=== PATIENT | female | born 1955 | race Caucasian/White ===

== ENCOUNTER → 2019-05-16 09:27 | Outpatient (CLI) | payer MEDICARE, OTHER, SELFPAY ==
--- NOTE | ~2019-05-16 | XR_ITS ---
EXAMINATION: XR elbow LT 2V EXAM DATE: 05/16/2019 09:37 INDICATION: No known recent injury provided at this time. Pain of the left elbow. Possibly related to weights. TECHNIQUE: Left elbow frontal and lateral projections. There is no prior study for comparison. FINDINGS: The joint spaces are uniform, no bony productive change. There are no acute left elbow fra ctures or dislocations identified. There is no subcutaneous gas. The soft tissue is unremarkable. There are no radiopaque foreign bodies. IMPRESSION: 1. Unremarkable XR elbow LT 2V exam. Reviewed, dictated and finalized at location A. CTION MOLDER
== END ==
PROVIDERS: PCP Family Medicine; Visit Provider Nurse Practitioner Family
DX: M25.522 Pain in left elbow (principal)
CPT/HCPCS: 73070

== ENCOUNTER 2019-09-09 17:11 | Emergency (ER) | payer MEDICARE, OTHER, SELFPAY ==
[2019-09-09 17:14] VITALS: BP 154/117; PULSE 70; RESP 18; TEMP 36.3; O2SAT 100
--- NOTE | 2019-09-09 18:58 | ED.GENADULT ---
HPI - General Adult General Chief complaint: Wound/Laceration Stated complaint: right thumb laceration Time Seen by Provider: 09/09/19 17:46 Source: patient Mode of arrival: ambulatory Limitations: no limitations History of Present Illness HPI narrative: Patient is a 63-year-old female who presents with laceration of the thumb patient was using a hand touch up painter knife when she cut the right thumb patient presents with laceration to the dorsal surface patient notes moderate aching pain worse with touch and activity patient notes that her tetanus is up-to-date patient presents per private vehicle in no distress Related Data Home Medications Medication Instructions Recorded Confirmed estradiol 10 mcg vaginal tablet 10 mcg VAGINAL 2XW 05/16/19 omega-3 acid ethyl esters 1 gram 1 cap PO DAILY 05/16/19 capsule raloxifene 60 mg tablet 60 mg PO DAILY 05/16/19 rosuvastatin 10 mg tablet 10 mg PO DAILY 05/16/19 Allergies Allergy/AdvReac Type Severity Reaction Status Date / Time Sulfa (Sulfonamide Allergy Mild RASH Verified 09/09/19 17:54 Antibiotics) adhesive tape Allergy Unknown RASH Verified 09/09/19 17:54 cefuroxime Allergy Unknown Unknown Verified 09/09/19 17:54 Cephalosporins Allergy Unknown NAUSEA AND Verified 09/09/19 17:54 SEVERE DIARRHEA, C-DIF sulfamethizole Allergy Unknown Unknown Verified 09/09/19 17:54 trimethoprim Allergy Unknown Unknown Verified 09/09/19 17:54 CEFUROXIME AXETIL Allergy Unknown CAUSED Uncoded 08/09/19 14:12 C-DIFF Review of Systems Review of Systems: Narrative: CONSTITUTIONAL: Denies fever, chills, or sweats. SKIN: Positive for laceration MUSCULOSKELETAL: Patient with 2-1/2 cm irregular flap laceration involving the dorsal surface of the right thumb NEUROLOGIC: Denies numbness, or weakness. PMFSH Social History Social History Smoking status: Never smoker Alcohol intake: current Exam Narrative: Exam Narrative: GENERAL: Well-appearing, well-nourished, and in no acute distress. HEAD: Normocephalic, atraumatic. EYES: PERRLA and EOMI. EXTREMITIES: Normal range of motion. No edema. SKIN: Warm, dry, no rash. Patient with 3 cm laceration of the dorsal surface of the right thumb that is superficial NEURO: No focal deficits. Alert and oriented x3. Neurovascularly intact. Capillary refill less than 2 seconds PSYCH: Normal mood and affect. Course Course Emergency Course: Patient in the room in no distress aware of case findings treatment plan and diagnosis Vital Signs Vital signs: Vital Signs Temperature 97.4 F L 09/09/19 17:14 Pulse Rate 70 09/09/19 17:14 Respiratory Rate 18 09/09/19 17:14 Blood Pressure 154/117 H 09/09/19 17:14 Pulse Oximetry 100 09/09/19 17:14 Temperature 97.4 F L 09/09/19 17:14 Pulse Rate 70 09/09/19 17:14 Respiratory Rate 18 09/09/19 17:14 Blood Pressure 154/117 H 09/09/19 17:14 Pulse Oximetry 100 09/09/19 17:14 Procedures Laceration Laceration 1: Date: 09/09/19 Time: 19:01 Site: upper extremity Side (If applicable): right Size (cm): 2.5 Description: linear and flap Depth: simple, single layer Local Anesthetic: lidocaine 1% Pre-repair: wound explored, irrigated and irrigated extensively ====== Skin Level ====== Skin layer closed with: nylon Size (cm): 5-0 Number of sutures: 4 ====== Subcutaneous Layer ====== ====== Muscle Layer ====== ====== Tendon Layer ====== Medical Decision Making MDM Narrative Medical decision making narrative: Patients injury or pain is consistent with musculoskeletal etiology. No signs of neurological or vascular compromise on exam. Compartments and tisues are soft without signs of compartment syndrome. Pain is felt appropriate for further evaluation on an outpatient basis. Vital Signs Vital Signs: Vital Signs Temperatu
[2019-09-09 19:36] VITALS: BP 143/48; PULSE 79; RESP 16; TEMP 36.6; O2SAT 95
== END 2019-09-09 19:37 | disposition home or self-care (01) ==
PROVIDERS: Emergency Provider Emergency Medicine; PCP Family Medicine
DX: S61.011A Laceration without foreign body of right thumb without damage to nail, initial encounter (principal); W26.0XXA Contact with knife, initial encounter
CPT/HCPCS: 12001; 99282

== ENCOUNTER 2020-02-06 08:38 | Outpatient (CLI) | payer MEDICARE, OTHER, SELFPAY ==
--- NOTE | ~2020-02-06 | MMUS_ITS ---
EXAMINATION: MM diagnostic joyce BI w oziel, US breast RT limited HISTORY: Tenderness of the lateral right breast and palpable lump in the upper outer quadrant of the breast TECHNIQUE: Craniocaudal, mediolateral, and mediolateral oblique 3-D tomosynthesis images of the humberto ts were performed and synthetic 2-D images were generated. CAD analysis was submitted and interpreted . High resolution limited right breast ultrasound was performed. COMPARISON: 12/14/2018, 12/10/2017, 11/27/2016 BREAST PARENCHYMAL COMPOSITION: The breasts are heterogeneously dense, which may obscure small masses . FINDINGS: MAMMOGRAPHIC FINDINGS: No mammographic correlate is identified for the patient's right breast pain or reported palpable abno rmality of concern. There is a stable intramammary lymph node in the upper outer quadrant of the righ t breast. There is no evidence of suspicious mass, calcification, or architectural distortion in eit her breast to suggest malignancy. There has been no suspicious interval change. ULTRASOUND: There is no evidence of focal abnormal solid or cystic lesion in the vicinity of the patient's right breast pain or reported palpable abnormality of concern. IMPRESSION: 1. No specific mammographic or sonographic correlate is identified for the patient's right breast maría n or reported palpable abnormality of concern. Further evaluation at this time should be based on cli nical assessment. Continued follow-up physical examination is recommended. 2. Recommend routine screening mammography in one year. BI-RADS Category 2: Benign finding(s). Reviewed, dictated and finalized at location A. IMPRESSION: 1. No specific mammographic or sonographic correlate is identified for the nicci ent's right breast pain or reported palpable abnormality of concern. Further ev aluation at this time should be based on clinical assessment. Continued follow- up physical examination is recommended. 2. Recommend routine screening mammography in one year. BI-RADS Category 2: Benign finding(s).
--- NOTE | ~2020-02-06 | DEXA_ITS ---
Bone Density Report Name: La Charles Age: 64 Sex: Female Ethnicity: White Date of : 1955 Indication: postmenopausal osteoporosis; monitoring treatment; height loss; prior fracture; hysterectomy; Referring Provider: Elysia, Ivett Fonseca Study: Bone densitometry was performed. Exam Date: February 06, 2020 Accession number: [id number] Bone Density: Region BMD T-score Z-score Classification AP Spine (L1-L4) 0.815 -2.1 -0.3 Osteopenia Femoral Neck (Left) 0.613 -2.1 -0.6 Osteopenia Total Hip (Left) 0.748 -1.6 -0.3 Osteopenia Total Hip Bilateral Avg 0.777 -1.4 -0.1 Osteopenia Femoral Neck (Right) 0.641 -1.9 -0.3 Osteopenia Total Hip (Right) 0.804 -1.1 0.2 Osteopenia World Health Organization criteria for BMD impression classify patients as: Normal (T-score at or above -1.0), Osteopenia (T-score between -1.0 and -2.5), or Osteoporosis (T-score at or below -2.5). 10-year Fracture Risk: FRAX not reported because: Treated for osteoporosis Previous Exams: Region Exam Age BMD T-score BMD Change BMD Change Date g/cm2 vs Baseline vs Previous AP Spine(L1-L4) 02/06/2020 64 0.815 -2.1 0.046(5.9%)* 0.046(5.9%)* 03/23/2015 59 0.770 -2.5 Total Hip(Left) 02/06/2020 64 0.748 -1.6 0.004(0.5%) 0.004(0.5%) 03/23/2015 59 0.744 -1.6 Total Hip(Right) 02/06/2020 64 0.804 -1.1 -0.013(-1.6%) -0.013(-1.6%) 03/23/2015 59 0.817 -1.0 *Denotes significance at 95% confidence level, LSC for AP Spine = 0.022 g/cm2, LSC for Total Hip = 0.027 g/cm2 Clinical Information Provided by Patient: Has had a low trauma fracture Is being treated for osteoporosis Has used the following medications: Evista (i.e. raloxifene), Vitamin D Has the following medical conditions: Hysterectomy Patient maximum height was 68 Menopause Age: 45 No regular weight bearing exercise Drinks caffeinated beverages Onset of menses at age 10 Number of children 2 Impression: The patient has low bone mass, based on the Total Spine T-score. The patient has risk factors, including: previous fracture. No significant bone loss was observed. Discussion: PATIENT UNDER TREATMENT WITH NO SIGNIFICANT BMD LOSS SINCE LAST EXAM. In an untreated patient, BMD typically declines with age. A lack of decline or gain is usually a sign that treatment is efficacious and fracture risk is reduced. It is important to ask patients whether they are taking their medications and to encourage continued and appro
== END 2020-02-06 08:39 | disposition home or self-care (01) ==
PROVIDERS: PCP Family Medicine; Visit Provider Nurse Practitioner Obstetrics & Gynecology
DX: Z13.820 Encounter for screening for osteoporosis (principal); M85.852 Other specified disorders of bone density and structure, left thigh; M85.851 Other specified disorders of bone density and structure, right thigh; M85.88 Other specified disorders of bone density and structure, other site; Z78.0 Asymptomatic menopausal state; R92.2 Inconclusive mammogram
CPT/HCPCS: 76642; 77062; 77066; 77080; G0279

== ENCOUNTER 2020-03-26 11:41 | Outpatient (CLI) | payer MEDICARE, OTHER, SELFPAY ==
--- NOTE | ~2020-03-26 | CT_ITS ---
EXAMINATION: CT abdomen pelvis w con DATE: 03/26/2020 12:23 INDICATION: Right lower quadrant pain. Rectal bleeding. TECHNIQUE: Computed tomography (CT) of the abdomen and pelvis was performed with 100 mL Omnipaque-350 intravenous contrast. Automated exposure control and iterative reconstruction technique were employe d. The dose-length product was 418.26 mGy-cm. COMPARISON: 03/01/2018 FINDINGS: Elevation of the left hemidiaphragm. Discoid atelectasis in the lingula along the major fissure. Josesito tional mild dependent atelectasis in the bilateral lower lobes. Heart size is normal. No pericardial or pleural effusion. Liver, gallbladder, pancreas, bilateral adrenal glands and right kidney are norm al. 2.8 cm cyst at the upper pole of the left kidney. No interval change in a likely benign 5 mm low- attenuation splenic lesion most likely a cyst or hemangioma. Bowels including the appendix are normal . Bladder is normal. The uterus is not identified and has likely been surgically resected. Small fat- containing umbilical hernia. No free intraperitoneal gas or fluid. No pathologically enlarged abdomin al or pelvic lymphadenopathy. Mild lower thoracic kyphosis with chronic mild anterior wedging at T8-T 11 with moderate lower thoracic spondylosis. IMPRESSION: 1. Normal appendix. No acute intra-abdominal/pelvic process. Reviewed, dictated and finalized at location B. OMER SERVICE SUPERVISOR
[2020-03-26 12:25] LABS: Estimated Glomerular Filt Rate > 60
[2020-03-26 13:02] LABS: Basophils Percent Auto 0.5 % (0.2-1.2); Eosinophils Absolute Auto 0.1 K/mm3 (0-0.3); Eosinophils Percent Auto 2.4 % (0-4.4); Hematocrit 41.1 % (37.0-47.0); Hemoglobin 13.7 g/dL (12.0-15.0); Immature Granulocyte Absolute 0.01 K/mm3 (0.00-0.031); Immature Granulocyte Percent A 0.2 % (0-0.5); Lymphocytes Percent Auto 36.6 % (18.3-44.2); Mean Corpuscular HGB Conc 33.3 g/dl (32-36); Mean Corpuscular Hemoglobin 29.7 pg (26-34); Mean Platelet Volume 9.3 fl (7.4-10.4); Monocytes Absolute Auto 0.4 K/mm3 (0.1-0.6); Monocytes Percent Auto 7.5 % (2.6-8.5); Neutrophils Absolute Auto 2.9 K/mm3 (1.3-6.7); Neutrophils Percent Auto 52.8 % (45.5-73.1); Platelet Count Result 279 k/mm3 (150-375); Red Blood Count 4.62 M/mm3 (4.2-5.4); Red Cell Distribution Width 12.2 % (11.5-14.5); White Blood Count 5.5 K/mm3 (4.5-10.0)
[2020-03-26 13:14] LABS: Alanine Aminotransferase 20 U/L (4-35); Albumin Level 3.9 g/dL (3.5-5.1); Alkaline Phosphatase 97 U/L (38-126); Anion Gap 4 mmol/L (8-16); Aspartate Amino Transferase 26 U/L (14-36); Bilirubin,Total 0.4 mg/dL (0.2-1.3); Blood Urea Nitrogen 14 mg/dL (7-17); Calcium 9.4 mg/dL (8.4-10.2); Carbon Dioxide 30 mmol/L (22-30); Chloride 102 mmol/L (98-107); Estimated Glomerular Filt Rate > 60; Glucose 86 mg/dL (65-105); Potassium 4.5 mmol/L (3.4-5.0); Sodium 136 mmol/L (137-145)
== END 2020-03-26 11:42 | disposition home or self-care (01) ==
PROVIDERS: PCP Family Medicine; Visit Provider Physician Assistant Medical
DX: K62.5 Hemorrhage of anus and rectum (principal); R10.31 Right lower quadrant pain; R10.32 Left lower quadrant pain; J98.11 Atelectasis; K42.9 Umbilical hernia without obstruction or gangrene; M47.814 Spondylosis without myelopathy or radiculopathy, thoracic region; M40.204 Unspecified kyphosis, thoracic region
CPT/HCPCS: 74177; 80053; 85025; Q9967

== ENCOUNTER 2020-04-01 08:20 | Outpatient (CLI) | payer MEDICARE, OTHER, SELFPAY ==
--- NOTE | ~2020-04-01 | XR_ITS ---
EXAMINATION: SNIFF TEST W/O CXR +FLUORO<1HR DATE: 03/11/11 11:13:00 INDICATION: Disorders of the diaphragm TECHNIQUE: Fluoroscopy was utilized for evaluation of diaphragmatic excursion with rapid inspiration. Fluoroscopy exposure time was 0.7 minutes. 1104 images are obtained. COMPARISON: None. FINDINGS: There is relatively symmetric caudal excursion of both the left and right leaves of the lizz phragm with rapid inspiration. Visualized portions of lung are clear. Heart size is normal. The lung s are free of acute opacities. There is no pleural effusion or pneumothorax. Mild thoracic spondylosi s is noted. IMPRESSION: 1. Normal sniff test. No evidence of phrenic nerve palsy. Reviewed, dictated and finalized at location A. ECTION MGR
== END 2020-04-01 08:21 | disposition home or self-care (01) ==
PROVIDERS: PCP Family Medicine; Visit Provider Physician Assistant Medical
DX: J98.6 Disorders of diaphragm (principal)
CPT/HCPCS: 71046; 76000

== ENCOUNTER 2020-04-14 19:06 | Emergency (ER) | payer MEDICARE, OTHER, SELFPAY ==
[2020-04-14] VITALS (21 sets, daily range): BP systolic 128–164; BP diastolic 62–127; PULSE 78–97; RESP 16–18; TEMP 36.6; O2SAT 92–99
--- NOTE | ~2020-04-14 | CT_ITS ---
EXAMINATION: CT abdomen pelvis w con INDICATION: Abdominal distention, rectal bleeding TECHNIQUE: Computed tomographic images of the abdomen and pelvis were obtained after the administrati on of 100 cc of Omnipaque 350 intravenous contrast. The dose-length product (DLP) was 453.63 mGy-cm. Automated exposure control and iterative reconstruction technique were employed. COMPARISON: 03/26/2020 FINDINGS: Minimal dependent atelectasis is present in the lung bases. The heart size is normal. There is a small sliding hiatal hernia. The liver, spleen, pancreas, gallbladder, and adrenal glands are n ormal. Cysts of the kidneys measure up to 3.4 cm on the left. No pathologically enlarged abdominal or pelvic lymph nodes are identified. There is no free intraperitoneal gas or evidence of bowel obstruc tion. A moderate volume of colonic stool is present. There is a small fat-containing umbilical hernia . Moderate lower thoracic spondylosis is noted. IMPRESSION: 1. No CT correlate for the patient's symptoms. Reviewed, dictated and finalized at location A. ATE EQUITY ASSOCIATE
[2020-04-14 19:42] LABS: Basophils Percent Auto 0.5 % (0.2-1.2); Eosinophils Absolute Auto 0.1 K/mm3 (0-0.3); Eosinophils Percent Auto 2.4 % (0-4.4); Hematocrit 41.2 % (37.0-47.0); Hemoglobin 13.8 g/dL (12.0-15.0); Immature Granulocyte Absolute 0.01 K/mm3 (0.00-0.031); Immature Granulocyte Percent A 0.2 % (0-0.5); Lymphocytes Absolute Auto 2.25 K/mm3 (0.9-3.2); Lymphocytes Percent Auto 38.5 % (18.3-44.2); Mean Corpuscular HGB Conc 33.5 g/dl (32-36); Mean Corpuscular Hemoglobin 29.5 pg (26-34); Mean Platelet Volume 9.3 fl (7.4-10.4); Monocytes Absolute Auto 0.5 K/mm3 (0.1-0.6); Monocytes Percent Auto 8.4 % (2.6-8.5); Neutrophils Absolute Auto 2.9 K/mm3 (1.3-6.7); Platelet Count Result 295 k/mm3 (150-375); Red Blood Count 4.68 M/mm3 (4.2-5.4); Red Cell Distribution Width 12.3 % (11.5-14.5); White Blood Count 5.9 K/mm3 (4.5-10.0)
[2020-04-14 19:52] LABS: INR 0.8; Partial Thromboplastin Time 22.8 SECONDS (22.3-36.8); Prothrombin Time 12.1 Seconds (11.1-14.7)
[2020-04-14 19:56] LABS: Alanine Aminotransferase 28 U/L (4-35); Alkaline Phosphatase 94 U/L (38-126); Aspartate Amino Transferase 38 U/L (14-36); Bilirubin,Total 0.4 mg/dL (0.2-1.3); Calcium 9.6 mg/dL (8.4-10.2); Glucose 104 mg/dL (65-105)
[2020-04-14 20:17] LABS: Sodium 140 mmol/L (137-145)
[2020-04-14 20:18] LABS: Anion Gap 10 mmol/L (8-16); Blood Urea Nitrogen 21 mg/dL (7-17); Carbon Dioxide 25 mmol/L (22-30); Chloride 105 mmol/L (98-107); Estimated CRCL calculation 49 ml/min; Estimated Glomerular Filt Rate > 60; Potassium 4.2 mmol/L (3.4-5.0)
--- NOTE | 2020-04-14 21:00 | ED.GIBLEED ---
HPI - GI Bleed General Chief complaint: GI Bleed Stated complaint: rectal bleeding Time Seen by Provider: 04/14/20 20:26 Source: patient and family Mode of arrival: ambulatory Limitations: no limitations History of Present Illness HPI Narrative: 64 years old white female presents with rectal bleeding. Started March 22, almost every bowel movement mixed with fresh red bright blood. Patient denies any pain. Patient also complaining of distended abdomen which is getting bigger since March 22. Patient denies any fever, chills, nausea, vomiting, diarrhea or constipation.. Patient denies exposure to anybody known to have COVID-19. Related Data Home Medications Medication Instructions Recorded Confirmed estradiol 10 mcg vaginal tablet 10 mcg VAGINAL 2XW 05/16/19 raloxifene 60 mg tablet 60 mg PO DAILY 05/16/19 pantoprazole [Protonix] 20 mg PO QAM 04/14/20 Allergies Allergy/AdvReac Type Severity Reaction Status Date / Time Sulfa (Sulfonamide Allergy Mild RASH Verified 04/14/20 19:25 Antibiotics) adhesive tape Allergy Unknown RASH Verified 04/14/20 19:25 cefuroxime Allergy Unknown Unknown Verified 04/14/20 19:25 Cephalosporins Allergy Unknown NAUSEA AND Verified 04/14/20 19:25 SEVERE DIARRHEA, C-DIF sulfamethizole Allergy Unknown Unknown Verified 04/14/20 19:25 trimethoprim Allergy Unknown Unknown Verified 04/14/20 19:25 CEFUROXIME AXETIL Allergy Unknown CAUSED Uncoded 03/26/20 10:10 C-DIFF Review of Systems Review of Systems: Narrative: CONSTITUTIONAL: Denies fever, chills, or sweats. EYES: Denies visual changes, redness, or discharge. ENT: Denies rhinorrhea, congestion, sore throat, or otalgia. CARDIOVASCULAR: Denies chest pain, palpitations, or edema. RESPIRATORY: Denies cough or dyspnea. GASTROINTESTINAL: Denies abdominal pain, nausea, vomiting, or diarrhea. GENITOURINARY: Denies dysuria or hematuria. SKIN: Denies rash or itching. MUSCULOSKELETAL: Denies back pain, joint pain, or myalgia. NEUROLOGIC: Denies headache, numbness, or weakness. PSYCHIATRIC: Denies anxiety or depression. [facility] Family History Family History Grandparent Cerebrovascular accident Family history of coronary artery disease Diabetes mellitus Mother Family history of malignant neoplasm of breast in first degree relative Family history of malignant neoplasm of ovary Family history of diabetes mellitus in first degree relative Family history of congestive heart failure Family history of heart disease in male family member before age 55 Father Family history of lung cancer Family history of heart disease in male family member before age 55 Sibling Family history of malignant neoplasm of breast in first degree relative, Onset Age: 30 Other Acute myocardial infarction Carcinoma of colon Social History Social History Smoking status: Never smoker Alcohol intake: current Exam Narrative: Exam Narrative: General appearance: Well-developed, well-nourished Skin: Normal color Head: Normocephalic, nontraumatic Eyes: Clear conjunctiva ENT: Oropharynx normal, ears normal, nose normal Neck: Supple, nontender Chest and respiratory: Airway patent, no respiratory distress, no accessory muscle use Heart: Regular rate/rhythm Abdomen: Soft, nontender, large distended abdomen no organomegaly, quiet bowel sounds, rectal exam showed no gross blood, no stool in the rectal pouch, guaiac is negative Vascular: Normal peripheral pulses, normal capillary refill. Musculoskeletal: Normal range of motion, nontender back Neurologic: Alert and oriented ?3, CAT WAGON OPERATOR is normal as tested, no gross motor deficit
[2020-04-14 21:54] LABS: Lactic Acid Reflex 0.9 mmol/L (0.7-2.1)
== END 2020-04-14 22:29 | disposition home or self-care (01) ==
PROVIDERS: Emergency Medicine; Emergency Provider Emergency Medicine; PCP Family Medicine
DX: K62.5 Hemorrhage of anus and rectum (principal)
CPT/HCPCS: 36415; 74177; 80053; 83605; 85025; 85610; 85730; 86850; 86900; 86901; 99284; Q9967

== ENCOUNTER → 2020-11-26 07:27 | Outpatient (CLI) | payer MEDICARE, OTHER, SELFPAY ==
--- NOTE | ~2020-11-26 | US_ITS ---
US right upper quadrant INDICATION: Left upper abdominal pain PROCEDURE: Realtime right upper abdominal ultrasound. COMPARISON: No prior studies for comparison. FINDINGS: The pancreas is normal without focal mass or pancreatic ductal dilation. Liver echotexture is increased, consistent with fatty infiltration. Right renal echotexture is unremarkable. There is normal directional flow in the portal vein. The gallbladder is normal without stones, gallbladder wall thickening or pericholecystic fluid. Comm on bile duct measures 4 mm. No sonographic Vidal's sign. IMPRESSION: 1: Hepatic steatosis. Reviewed, dictated and finalized at location A. IMPRESSION: 1: Hepatic steatosis.
== END ==
PROVIDERS: PCP Family Medicine; Visit Provider Nurse Practitioner Family
DX: R10.13 Epigastric pain (principal); R14.0 Abdominal distension (gaseous); K76.0 Fatty (change of) liver, not elsewhere classified
CPT/HCPCS: 76705

== ENCOUNTER 2021-01-13 09:34 | Outpatient (CLI) | payer MEDICARE, OTHER, SELFPAY ==
--- NOTE | ~2021-01-13 | NM_ITS ---
EXAMINATION: NM hepatobiliary wo pharm DATE: 01/13/2021 12:31 INDICATION: Epigastric abdominal pain. COMPARISON: Ultrasound 11/26/2020 TECHNIQUE: 4 mCi Tc-99m mebrofenin (Choletec) was administered intravenously. Scintigraphic images o f the abdomen were obtained for one hour. Then, the patient drank 8 oz Ensure, and imaging was contin ued for 60 minutes. FINDINGS: There is normal clearance of radiotracer from the blood pool. There is homogeneous tracer u ptake by the liver. Activity progresses to the bowel and gallbladder. Gallbladder ejection fraction (GBEF) was 83%. Note that with this technique, normal GBEF >= 33%. IMPRESSION: 1. Normal hepatobiliary scintigraphy. Reviewed, dictated and finalized at location A.
== END 2021-01-13 09:35 | disposition home or self-care (01) ==
PROVIDERS: PCP Family Medicine; Visit Provider Nurse Practitioner
DX: R10.13 Epigastric pain (principal); R14.0 Abdominal distension (gaseous)
CPT/HCPCS: 78226; A9537

== ENCOUNTER → 2021-02-26 02:06 | Outpatient (CLI) | payer MEDICARE, OTHER, SELFPAY ==
[2021-02-26 18:47] LABS: SARS-CoV-2 RNA PCR Negative
== END ==
PROVIDERS: PCP Family Medicine; Visit Provider Nurse Practitioner Family
DX: R68.89 Other general symptoms and signs (principal); Z20.822 Contact with and (suspected) exposure to COVID-19
CPT/HCPCS: C9803; U0003; U0005

== ENCOUNTER 2021-03-04 10:52 | Emergency (ER) | payer MEDICARE, OTHER, SELFPAY ==
[2021-03-04 11:01] VITALS: BP 145/60; PULSE 75; RESP 16; TEMP 36.9; O2SAT 98
--- NOTE | 2021-03-04 11:55 | ED.URI ---
HPI - URI/Sore Throat General Chief Complaint: Upper Respiratory Infection Stated Complaint: Chest Congestion,Cough,Headache,Sinus Time Seen by Provider: 03/04/21 11:48 Source: patient and RN notes reviewed Mode of arrival: ambulatory Limitations: no limitations History of Present Illness HPI Narrative: Breonna is a 65-year-old female patient who ambulated into the [facility]. Patient states she is had a cough and sinus symptoms for the last 10 days. Patient states the cough is getting worse. Patient had a negative Covid test on 02/26/2021. Patient's had a similar symptoms and was in the hospital for pneumonia. Patient states her was discharged yesterday. Patient does have a history of irritable bowel syndrome and denies any other health issues. Related Data Home Medications Medication Instructions Recorded Confirmed estradiol 10 mcg vaginal tablet 10 mcg VAGINAL 2XW 05/16/19 01/29/21 raloxifene 60 mg tablet 60 mg PO DAILY 05/16/19 01/29/21 Allergies Allergy/AdvReac Type Severity Reaction Status Date / Time Sulfa (Sulfonamide Allergy Mild RASH Verified 01/29/21 15:23 Antibiotics) adhesive tape Allergy Unknown RASH Verified 01/29/21 15:23 cefuroxime Allergy Unknown Unknown Verified 01/29/21 15:23 Cephalosporins Allergy Unknown NAUSEA AND Verified 01/29/21 15:23 SEVERE DIARRHEA, C-DIF sulfamethizole Allergy Unknown Unknown Verified 01/29/21 15:23 trimethoprim Allergy Unknown Unknown Verified 01/29/21 15:23 CEFUROXIME AXETIL Allergy Unknown CAUSED Uncoded 01/29/21 15:23 C-DIFF Review of Systems Review of Systems: CONSTITUTIONAL: Denies body aches, fever, chills, or sweats. EYES: Denies visual changes, redness, or discharge. ENT: + rhinorrhea, +congestion, sore throat, or otalgia. CARDIOVASCULAR: Denies chest pain, palpitations, or edema. RESPIRATORY: + cough denies dyspnea. GASTROINTESTINAL: Denies abdominal pain, nausea, vomiting, or diarrhea. GENITOURINARY: Denies dysuria or hematuria. SKIN: Denies rash, itching, or wounds. MUSCULOSKELETAL: Denies back pain, joint pain, or myalgia. NEUROLOGIC: Denies headache, numbness, tingling, or weakness. PSYCH: Denies depression or anxiety. All systems reviewed & are unremarkable except as noted in HPI and below PMFSH Past Medical History Medical History BMI 26.0-26.9,adult Family History Family History Grandparent Cerebrovascular accident Family history of coronary artery disease Diabetes mellitus Mother Family history of malignant neoplasm of breast in first degree relative Family history of malignant neoplasm of ovary Family history of diabetes mellitus in first degree relative Family history of congestive heart failure Family history of heart disease in male family member before age 55 Father Family history of lung cancer Family history of heart disease in male family member before age 55 Sibling Family history of malignant neoplasm of breast in first degree relative, Onset Age: 30 Other Acute myocardial infarction Carcinoma of colon Social History Social History Smoking status: Never smoker Alcohol intake: current Comments At time of signature, I have reviewed and agree with nursing past medical, surgical, social and family history unless otherwise noted. Please see nursing chart for further information. There is no relevant family history pertinent to the presenting complaint Exam Narrative: GENERAL: Well-appearing, well-nourished, and in no acute distress. HEAD: Normocephalic, atraumatic. EYES: EOMI. No redness or drainage. Conjunctivae normal. ENT: Mucous membranes pink and moist. Nasal membranes pale with clear rhinorrhea. Bilateral tympanic membranes are opaque with mild bulging. No erythema noted. Posterior pharynx is erythem
== END 2021-03-04 12:05 | disposition home or self-care (01) ==
PROVIDERS: Emergency Provider Nurse Practitioner Family; PCP Family Medicine
DX: J40 Bronchitis, not specified as acute or chronic (principal)
CPT/HCPCS: 99213; G0463

== ENCOUNTER 2021-10-07 12:39 | Outpatient (CLI) | payer MEDICARE, OTHER, SELFPAY ==
--- NOTE | ~2021-10-07 | MM_ITS ---
EXAMINATION: MM diagnostic joyce BI w oziel HISTORY: Right breast pain TECHNIQUE: Additional 3-D tomosynthesis images of the breasts were performed and synthetic 2-D images were generated. CAD analysis was submitted and interpreted. COMPARISON: Comparison to multiple prior studies sequentially, with oldest reviewed study dated 10/2014. BREAST PARENCHYMAL COMPOSITION: Breast composed of scattered areas of fibroglandular density FINDINGS: There are no suspicious masses, calcifications or architectural distortion to suggest malig carine. There are stable benign breast calcifications. IMPRESSION: 1. Stable bilateral mammogram without evidence for malignancy. 2. Routine yearly screening mammogram and regular clinical breast examination are recommended. BI-RADS Category 2: Benign finding(s).. Reviewed, dictated and finalized at location A. IMPRESSION: 1. Stable bilateral mammogram without evidence for malignancy. 2. Routine yearly screening mammogram and regular clinical breast examination a re recommended. BI-RADS Category 2: Benign finding(s)..
== END 2021-10-07 12:40 | disposition home or self-care (01) ==
LOC: ANHIMG 12:40
PROVIDERS: PCP Family Medicine; Visit Provider Nurse Practitioner Obstetrics & Gynecology
DX: N64.4 Mastodynia (principal)
CPT/HCPCS: 77062; 77066; G0279

== ENCOUNTER 2022-01-14 14:58 | Inpatient (IN) | payer MEDICARE, OTHER, SELFPAY ==
[2022-01-14] VITALS (7 sets, daily range): BP systolic 137–160; BP diastolic 62–73; PULSE 72–97; RESP 16–18; TEMP 36.2–36.4; O2SAT 95–100; BMI 30.7
--- NOTE | ~2022-01-14 | XR_ITS ---
EXAMINATION: XR chest 2V DATE: 01/14/2022 15:42 INDICATION: Chest pain. TECHNIQUE: Frontal and lateral views of the chest were obtained. COMPARISON: Chest 2 views 01/15/2016 FINDINGS: There is mild atelectasis in left lower lung zone. No pleural effusion or pneumothorax. The heart size is normal. There is mild chronic anterior wedging of multiple vertebral bodies. IMPRESSION: 1. Mild atelectasis in left lower lung zone. Reviewed, dictated and finalized at location A.
--- NOTE | 2022-01-14 15:06 | ECG_ITS ---
Measurements Intervals [place] Rate: 97 P: 65 [place]: 165 QRS: 72 QRSD: 77 T: 68 QT: 360 QTc: 459 Interpretive Statements SINUS RHYTHM [address] ELEV, PROBABLE NORMAL EARLY REPOL PATTERN NO PREVIOUS ECG AVAILABLE FOR COMPARI Electronically Signed On 01-15-2022 16:32:03 CDT by Carlyn Buenrostro M.D.
[2022-01-14 15:24] LABS: Basophils Percent Auto 0.3 % (0.2-1.2); Eosinophils Absolute Auto 0.1 K/mm3 (0-0.3); Eosinophils Percent Auto 1.4 % (0-4.4); Hematocrit 42.1 % (37.0-47.0); Hemoglobin 14.1 g/dL (12.0-15.0); Immature Granulocyte Absolute 0.01 K/mm3 (0.00-0.031); Immature Granulocyte Percent A 0.2 % (0-0.5); Lymphocytes Absolute Auto 1.79 K/mm3 (0.9-3.2); Lymphocytes Percent Auto 28.1 % (18.3-44.2); Mean Corpuscular HGB Conc 33.5 g/dl (32-36); Mean Corpuscular Hemoglobin 29.9 pg (26-34); Mean Corpuscular Volume 89.4 fl (80-100); Mean Platelet Volume 9.4 fl (7.4-10.4); Monocytes Absolute Auto 0.4 K/mm3 (0.1-0.6); Monocytes Percent Auto 6.4 % (2.6-8.5); Neutrophils Absolute Auto 4.1 K/mm3 (1.3-6.7); Neutrophils Percent Auto 63.6 % (45.5-73.1); Platelet Count Result 309 k/mm3 (150-375); Red Blood Count 4.71 M/mm3 (4.2-5.4); Red Cell Distribution Width 12.7 % (11.5-14.5); White Blood Count 6.4 K/mm3 (4.5-10.0)
[2022-01-14 15:33] LABS: Alanine Aminotransferase 25 U/L (6-35); Albumin Level 4.4 g/dL (3.5-5.1); Alkaline Phosphatase 120 U/L (38-126); Anion Gap 9 mmol/L (8-16); Aspartate Amino Transferase 27 U/L (14-36); Bilirubin,Total 0.4 mg/dL (0.2-1.3); Blood Urea Nitrogen 19 mg/dL (7-17); Calcium 9.3 mg/dL (8.4-10.2); Carbon Dioxide 21 mmol/L (22-30); Chloride 107 mmol/L (98-107); Estimated CRCL calculation 63 ml/min; Estimated Glomerular Filt Rate > 60; Glucose 118 mg/dL (65-110); Lipase 156 U/L (23-300); Potassium 3.6 mmol/L (3.4-5.0); Sodium 137 mmol/L (137-145)
[2022-01-14 15:46] LABS: Partial Thromboplastin Time 24.6 SECONDS (22.3-36.8); Prothrombin Time 12.2 Seconds (11.1-14.7)
[2022-01-14 15:48] LABS: Troponin I 0.042 ng/mL (0.000-0.034)
--- NOTE | 2022-01-14 16:06 | ECG_ITS ---
Measurements Intervals [place] Rate: 88 P: 66 [place]: 177 QRS: 72 QRSD: 68 T: 70 QT: 361 QTc: 438 Interpretive Statements SINUS RHYTHM ST ELEV, PROBABLE NORMAL EARLY REPOL PATTERN COMPARED TO ECG 01/14/2022 15:06:42 NO SIGNIFICANT CHANGES Electronically Signed On 01-15-2022 17:05:51 CDT by Carlyn Buenrostro M.D.
[2022-01-14] MEDS: ASPIRIN 81 MG CHEWABLE TABLET 324 MG PO (16:43)
--- NOTE | 2022-01-14 17:15 | ED.CHESTPAIN ---
HPI - Chest Pain General Chief Complaint: Chest Pain Stated Complaint: CHEST PAIN Time Seen by Provider: 01/14/22 16:45 History of Present Illness HPI narrative: Pt presents with chest pain today. Pt states she was working in the yard for a couple of hours this afternoon and developed anterior chest pressure that radiated into her left shoulder and arm and both of her hands got numb. Pt says she sat on the floor and was disoriented. The pain lessemed and they came to the ER. Pt never was pain free and had another period of a few minutes in the [place] where the pain got worse but it is now back down again (05/22). Pt has had a few of these spells over the last 9 months but never this bad. Related Data Home Medications Medication Instructions Recorded Confirmed estradiol 10 mcg vaginal tablet 10 mcg vaginal 2XW 05/16/19 07/15/21 (Vagifem) raloxifene 60 mg tablet (Evista) 60 mg PO DAILY 05/16/19 07/15/21 Allergies Allergy/AdvReac Type Severity Reaction Status Date / Time Sulfa (Sulfonamide Allergy Mild RASH Verified 01/29/21 15:23 Antibiotics) adhesive tape Allergy Unknown RASH Verified 01/29/21 15:23 cefuroxime Allergy Unknown Unknown Verified 01/29/21 15:23 Cephalosporins Allergy Unknown NAUSEA AND Verified 01/29/21 15:23 SEVERE DIARRHEA, C-DIF sulfamethizole Allergy Unknown Unknown Verified 01/29/21 15:23 trimethoprim Allergy Unknown Unknown Verified 01/29/21 15:23 CEFUROXIME AXETIL Allergy Unknown CAUSED Uncoded 01/29/21 15:23 C-DIFF Review of Systems Review of Systems: All systems reviewed & are unremarkable except as noted in HPI and below PMFSH Past Medical History Medical History BMI 26.0-26.9,adult BMI 27.0-27.9,adult Family History Family History Grandparent Cerebrovascular accident Family history of coronary artery disease Diabetes mellitus Mother Family history of malignant neoplasm of breast in first degree relative Family history of malignant neoplasm of ovary Family history of diabetes mellitus in first degree relative Family history of congestive heart failure Family history of heart disease in male family member before age 55 Father Family history of lung cancer Family history of heart disease in male family member before age 55 Sibling Family history of malignant neoplasm of breast in first degree relative, Onset Age: 30 Other Acute myocardial infarction Carcinoma of colon Social History Social History Alcohol intake: current Exam Const: General: healthy appearing Nutritional Appearance: well nourished Orientation/consciousness: patient oriented x3 Limitations: no limitations Neck: Neck: normal visual inspection Chest: Chest palpation & inspection: normal inspection of the chest Resp: Effort & Inspection: normal respiratory effort Auscultation: clear to auscultation bilaterally Cardio: Rate: regular rate Rhythm: regular rhythm GI: Auscultation: normal bowel sounds Skin: General skin exam: normal color Rashes: no rashes Neuro: General: patient oriented x3 Cranial nerves: Yes Nystagmus not present Speech: normal speech Extrem: General: normal to inspection and no clubbing, cyanosis or edema Psych: Mental Status: mental status grossly normal Affect: normal affect Attitude: cooperative Course Course Emergency Course: pt pain free after meds. d/w [facility] will accept pt Vital Signs Vital signs: Vital Signs Temperature 97.2 F L 01/14/22 15:07 Pulse Rate 97 01/14/22 15:07 Respiratory Rate 16 01/14/22 15:07 Blood Pressure 160/62 H 01/14/22 15:07 Pulse Oximetry 99 01/14/22 15:07 Oxygen Delivery Room Air 01/14/22 15:07 Temperature 97.2 F L 01/14/22 15:07 Pulse Rate 72 01/14/22 19:01 Respiratory Rate 18 01/14/22 19:01 Blood Pres
[2022-01-14] MEDS: NITROGLYCERIN OINTMENT 1 INCH DOSE TRANSDERM (17:17)
[2022-01-14] MEDS: MORPHINE SULFATE (*CRX) 4 MG/ML INJ IV PUSH (17:17)
[2022-01-14 19:17] LABS: SARS-CoV-2 RNA PCR Negative
[2022-01-14 19:28] LABS: Troponin I 0.712 ng/mL (0.000-0.034)
--- NOTE | 2022-01-14 20:53 | PM.IMHP ---
H&P: HPI History of Present Illness Date/Time: 01/14/22 20:53 Chief Complaint: chest pain Narrative: This is a 66-year-old female with past medical history significant for hypothyroidism, GERD, hypertension, however patient on no meds has had abnormal readings at home in the last few days. patient presents today to the emergency room after she had an episode of retrosternal chest pain 10/10 in intensity it felt like a pressure like someone sitting on her chest had some nausea with it but no vomiting felt about to faint, there was no loss of consciousness, lasted for 20 minutes or so patient had been doing some yd work or morning and was ready to take a shower when this happened her witnessed the episode and called 911 patient was brought to the emergency room. patient had been in her usual state of health up until this denies any cough, sputum production, fevers, rigors, chills, no leg swelling, no ankle swelling, however has been having abnormal blood pressure readings at home with home machine. preliminary workup was essentially nonrevealing. Patient is being admitted for further evaluation management and treat Review of Systems Review of Systems: retrosternal chest pain, near-syncope. Constitutional: Constitutional: Denies chills, Denies fever(s) and Denies malaise Eyes: Eyes: Denies change in vision ENT: Denies dysphagia, Denies vertigo, Denies dizziness and Denies odynophagia Cardiovascular: Cardiovascular: Reports chest pain, Denies syncope, Denies pedal edema, Reports lightheadedness, Denies dyspnea and Denies orthopnea Respiratory: Respiratory: Denies chest congestion, Denies cough and Denies pain on inspiration Gastrointestinal: Gastrointestinal: Denies abdominal pain, Denies dyspepsia, Denies heartburn, Denies diarrhea, Reports nausea and Denies vomiting Genitourinary: Genitourinary: Denies dysuria Musculoskeletal: Musculoskeletal: Denies back pain, Denies myalgias, Denies joint swelling and Denies muscle weakness Integumentary/Breasts: Skin/Breast: Denies rash Neurologic: Denies vertigo, Denies dizziness, Denies focal weakness and Denies Sensory deficit (Neuro) Psychiatric: Psychiatric: Reports no additional psychiatric complaints and Reports as per HPI Endocrine: Endocrine: Denies cold intolerance, Denies flushing, Denies heat intolerance, Denies polyphagia, Denies polydipsia and Denies palpitations Hematologic/Lymphatic: Hematologic/Lymphatic: Reports no additional hematologic/lymphatic complaints and Reports as per HPI Allergic/Immunologic: Allergic/Immunologic: Reports no additional allergic/immunologic complaints and Reports as per HPI [facility] Past Medical History Medical History BMI 26.0-26.9,adult BMI 27.0-27.9,adult Family History Family History (Updated 01/14/22 @ 23:30 by Rozina Alfaro RN) Grandparent Diabetes mellitus Family history of coronary artery disease Cerebrovascular accident Mother Family history of heart disease in male family member before age 55 Family history of malignant neoplasm of ovary Family history of diabetes mellitus in first degree relative Family history of malignant neoplasm of breast in first degree relative Family history of congestive heart failure Acute myocardial infarction Diabetes mellitus Father Family history of heart disease in male family member before age 55 Family history of lung cancer Acute myocardial infarction Hx of CABG Sibling Family history of malignant neoplasm of breast in first degree relative, Onset Age: 30 Other Carcinoma of colon Social History Social History Smoking status: Never smoker Alcohol intake: never Substance use: never Substance use type: does not use Spiritual care concerns: No Meds Home Medications and Allergies Home Medications Medication Instructions Recorded
--- NOTE | 2022-01-14 22:34 | ADMGEN ---
This patient, La Charles, was admitted to IMU Room 207-01 on 01/14/22 at 2135. Patient/family oriented to hospital policies and general routines including ID bracelet, bed and alarms, visiting hours, pain management, procedures, bathroom and other care routines, personal items, smoking policy, room service/diet, and visiting hours. Information on how to activate the Rapid Response Team has been discussed. Patient/Family are encouraged to report perceived risks to care and to ask questions if they do not understand what they are told or what they should do.
--- NOTE | 2022-01-14 23:19 | ECG_ITS ---
Measurements Intervals [place] Rate: 63 P: 51 NE: 183 QRS: 43 QRSD: 82 T: 46 QT: 414 QTc: 424 Interpretive Statements SINUS RHYTHM NONSPECIFIC ST-T WAVE ABNORMALITIES COMPARED TO ECG 01/14/2022 16:11:50 NO SIGNIFICANT CHANGES Electronically Signed On 01-15-2022 17:15:56 CDT by Carlyn Buenrostro M.D.
[2022-01-15] VITALS (26 sets, daily range): BP systolic 114–160; BP diastolic 44–83; PULSE 53–101; RESP 15–23; TEMP 36.3–36.9; O2SAT 90–97
--- NOTE | 2022-01-15 | ECHO_ITS ---
Patient Info Name: La Charles Age: 66 years : 1955 Gender: Female Ht: 63 in Wt: 173 lbs BSA: 1.90 m2 HR: 51 bpm BP: 142 / 55 mmHg Heart Rhythm: Sinus Rhythm Technical Quality: Fair Exam Date: 01/15/2022 9:29 AM Exam Location: [facility] Pulmonary Patient Status: Outpatient Admit Date: 01/14/2022 Staff Ordering Physician: Priyanka Pizarro MD Robotics Application Engineer: Sydney Barrientos RDCS Attending Provider: Zaki Adorno MD Referring Physician: Moira SHEPARD; Exam Type: CA echo doppler color flow Study Info Indications R07.9 - Chest pain, unspecified Complete two-dimensional, color flow and Doppler transthoracic echocardiogram is performed. Summary 1. Complete two-dimensional, color flow and Doppler transthoracic echocardiogram is performed. 2. Left ventricular systolic function is normal, estimated at 60-65%. 3. The left ventricular diastolic function is grade I diastolic dysfunction. 4. Right ventricular systolic function is normal. 5. Left atrial chamber dimension is mildly enlarged. 6. There is moderate aortic valve regurgitation. Pressure half-time of 447 ms. 7. There is mild mitral valve regurgitation. Left Ventricle Left ventricular chamber dimension is normal. Left ventricular systolic function is normal, estimated at 60-65%. There is no increased left ventricular wall thickness. The left ventricular diastolic function is grade I diastolic dysfunction. Right Ventricle Right ventricular chamber dimension is normal. Right ventricular systolic function is normal. Left Atria Left atrial chamber dimension is mildly enlarged. Right Atria Right atrial chamber dimension is normal. Aortic Valve The aortic valve is trileaflet. There is no aortic valve stenosis. There is moderate aortic valve regurgitation. Pressure half-time of 447 ms. Pulmonic Valve The pulmonic valve is not well visualized. Mitral Valve The mitral valve has normal leaflets. There is no mitral valve stenosis. There is mild mitral valve regurgitation. Tricuspid Valve The tricuspid valve leaflets are not well visualized. There is no significant tricuspid valve stenosis. There is trace tricuspid valve regurgitation. Pericardium/Pleural There is no pericardial effusion. Aorta The aortic root size at the sinus of Valsalva is mildly dilated. Left Ventricular Outflow Tract Name Value Normal LVOT 2D LVOT Diameter 2.0 cm LVOT Doppler LVOT Peak Gradient 3 mmHg LVOT Mean Gradient 2 mmHg LVOT VTI 22 cm LVOT VTI/AV VTI Ratio 0.7 LVOT Stroke Volume 70 ml LVOT CO 4.8 l/min LVOT CI 2.6 l/min/m2 Pulmonic Valve Name Value Normal RVOT Doppler
[2022-01-15] MEDS: ENOXAPARIN 80 MG/0.8 ML SYRINGE 78 MG SUB-Q (00:19)
[2022-01-15] MEDS: DEXTROSE 5%/0.45% SOD CHL 1,000 ML 75 ML IV CONT (01:47)
[2022-01-15] MEDS: ACETAMINOPHEN 500 MG TABLET 1000 MG PO (01:48)
--- NOTE | 2022-01-15 09:11 | PM.CNCAR ---
Assessment and Plan Assessment and plan (1) NSTEMI (non-ST elevated myocardial infarction): Code(s): I21.4 - Non-ST elevation (NSTEMI) myocardial infarction Status: Acute Assessment and Plan: Patient presents with classic unstable angina occurring with activity associated chest pressure radiating to the upper left back, posterior neck associated nausea, emesis, shortness of breath chest pressure/heaviness substernal weakness presenting with subtle nonspecific EKG changes but with elevated troponin. Patient is currently asymptomatic with nitroglycerin paste. Bedside 2D echo did not reveal significant wall motion abnormalities, preserved EF 65% normal RV size and function. Risks, benefits, and alternatives discussed in great detail. All questions answered to her satisfaction. Patient verbalized understanding and agreed to proceed with recommendation for coronary angiography for delineation of her coronary anatomy. Discussed the unusual circumstance given strong family history refraction including elevated blood pressure and hyperlipidemia yet she had a normal coronary angiogram October 2013. Discussed with my interventional partner Dr. Buenrostro who agrees with plan for coronary angiography. Will hold enoxaparin with plans to perform procedure around noon given timing of her last enoxaparin dose. Will give aspirin, load with clopidogrel 600 mg x 1. Atorvastatin 80 mg at bedtime. Check lipid panel. Continue telemetry. 2D echo findings as above. Heart rate stable 50s 60s with rare ventricular couplets and one 4 beat run of nonsustained VT. Add beta-robert therapy post catheterization, additional medical therapy depending upon BP trend. (2) NSVT (nonsustained ventricular tachycardia): Code(s): I47.29 - Other ventricular tachycardia Status: Acute (3) Elevated blood pressure reading without diagnosis of hypertension: Code(s): R03.0 - Elevated blood-pressure reading, without diagnosis of hypertension Status: Acute Assessment and Plan: Stable. Distal medical therapy is appropriate based on coronary angiography and plan of care. (4) Hyperlipidemia: Code(s): E78.5 - Hyperlipidemia, unspecified Status: Acute Assessment and Plan: Atorvastatin increased to 80 mg at bedtime. Lipid panel ordered. Recommendation follow as appropriate goal LDL less than 70. (5) Family history of coronary artery disease: Code(s): Z82.49 - Family history of ischemic heart disease and other diseases of the circulatory system Status: Acute Assessment and Plan: As above. (6) History of colitis: Code(s): Z87.19 - Personal history of other diseases of the digestive system Status: Acute Assessment and Plan: Patient denies active symptoms. 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 No evidence of bleed presently although we discussed this risk with aspirin and or dual antiplatelet therapy. Continue to follow H&H closely and or signs of bleeding. Follow with GI. 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 Patient reports over the past few months she had 2 episodes of chest pressure and not feeling well which woke her from sleep lasting approximately 15-20 minutes then resolved spontaneously. She had continued to exercise 3 times per week as she usually does with
[2022-01-15] MEDS: ASPIRIN 81 MG ENTERIC TABLET PO (09:44)
[2022-01-15] MEDS: ATORVASTATIN 40 MG TABLET 80 MG PO (09:44)
[2022-01-15 10:07] LABS: Cholesterol 284 mg/dL (0-200); HDL Direct 31 mg/dL; Triglycerides 372 mg/dL (<150)
[2022-01-15 10:18] LABS: LDL Cholesterol Direct 174 mg/dL
[2022-01-15] MEDS: CLOPIDOGREL BISULFATE 300 MG TABLET 600 MG PO (11:07)
--- NOTE | 2022-01-15 11:49 | PC.NURSE ---
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
--- NOTE | 2022-01-15 14:26 | PM.IMPN ---
Progress Note: A&P Assessment and Plan (1) Chest pain: Code(s): R07.9 - Chest pain, unspecified Status: Acute (2) NSTEMI (non-ST elevated myocardial infarction): Code(s): I21.4 - Non-ST elevation (NSTEMI) myocardial infarction Status: Acute (3) Uncontrolled hypertension: Code(s): I10 - Essential (primary) hypertension Status: Acute Plan Non ST-elevation DC aspirin Lovenox cardiology consult. Retrosternal chest pain with nonspecific EKG changes. Troponin initially 0.042 6-3.8 this morning. Total cholesterol high at 284 LDL of 174 and triglyceride of 372 atorvastatin 80 mg daily. Chest x-ray mild atelectasis in left lower lung zone Hypertension uncontrolled GERD Nonsustained ventricular tachycardia Family history of coronary artery disease DVT prophylaxis Lovenox Subjective Date/time seen: 01/15/22 14:26 Interval history: HPI:This is a 66-year-old female with past medical history significant for hypothyroidism, GERD, hypertension, however patient on no meds has had abnormal readings at home in the last few days. patient presents today to the emergency room after she had an episode of retrosternal chest pain 10/10 in intensity it felt like a pressure like someone sitting on her chest had some nausea with it but no vomiting felt about to faint, there was no loss of consciousness, lasted for 20 minutes or so patient had been doing some yd work or morning and was ready to take a shower when this happened her witnessed the episode and called 911 patient was brought to the emergency room. patient had been in her usual state of health up until this denies any cough, sputum production, fevers, rigors, chills, no leg swelling, no ankle swelling, however has been having abnormal blood pressure readings at home with home machine. preliminary workup was essentially nonrevealing.? Patient is being admitted for further evaluation management and treat 01/15/2022 Review of Systems Review of Systems: All systems reviewed & are unremarkable except as noted in HPI and below Objective Data Vital Signs Vital Signs: Vital Signs - 24 hr 01/14/22 15:07 01/14/22 16:37 01/14/22 19:01 Temperature 97.2 F L Pulse Rate 97 79 72 Respiratory Rate 16 18 Blood Pressure 160/62 H 137/72 Pulse Oximetry 99 100 Oxygen Delivery Room Air 01/14/22 21:23 01/14/22 21:35 01/14/22 21:35 Temperature 97.6 F Pulse Rate 74 76 Respiratory Rate 18 16 Blood Pressure 143/73 H 140/70 Pulse Oximetry 95 97 Oxygen Delivery Room Air 01/15/22 00:00 01/15/22 00:00 01/14/22 22:00 Temperature 97.6 F Pulse Rate 75 75 Respiratory Rate 16 Blood Pressure 153/65 H Pulse Oximetry 97 Oxygen Delivery Room Air 01/15/22 00:00 01/14/22 21:38 01/15/22 02:00 Temperature Pulse Rate 65 84 69 Respiratory Rate Blood Pressure Pulse Oximetry Oxygen Delivery 01/15/22 04:00 01/15/22 04:00 01/15/22 04:00 Temperature 97.6 F Pulse Rate 61 60 Respiratory Rate 18 Blood Pressure 142/55 H Pulse Oximetry 95 Oxygen Delivery Room Air 01/15/22 06:00 01/15/22 08:00 01/15/22 08:00 Temperature 97.6 F Pulse Rate 53 L 72 60 Respiratory Rate 18 Blood Pressure 130/52 L Pulse Oximetry 95 Oxygen Delivery 01/15/22 10:00 01/15/22 12:00 Temperature 97.4 F L Pulse Rate 71 65 Respiratory Rate 20 Blood Pressure 160/63 H Pulse Oximetry 97 Oxygen Delivery Intake/Output Intake/Output: Intake & Output 01/12/22 01/13/22 01/14/22 01/15/22 23:59 23:59 23:59 23:59 Output Total 400 Balance -400 Meds/Results Medications: Active Medications Generic Name Dose Route Start Last Admin Trade Name Jonathon PRN Reason Stop Dose Admin Acetaminophen 1,000 mg 01/15/22 00:42 01/15/22 01:48 Acetaminophen 500 Mg Tablet PO 1,000 mg Q6H PRN Administration Mild Pain (1-3) or Fever Aspirin 81 mg 01/15/22 09:25 01/15/22 09:44 Aspirin 8
[2022-01-15] MEDS: SODIUM CHLORIDE 0.9% IV 1,000 ML 100 ML IV CONT (15:07)
--- NOTE | 2022-01-15 15:11 | WPDMODSED ---
Moderate Sedation Note-Pt Data Patient Data Diagnosis: Unstable angina / ACS Present Complaint: Unstable angina / ACS Procedure to be performed/Plan: Cardiac cath Allergies Allergy/AdvReac Type Severity Reaction Status Date / Time Sulfa (Sulfonamide Allergy Mild RASH Verified 01/29/21 15:23 Antibiotics) adhesive tape Allergy Unknown RASH Verified 01/29/21 15:23 cefuroxime Allergy Unknown Unknown Verified 01/29/21 15:23 Cephalosporins Allergy Unknown NAUSEA AND Verified 01/29/21 15:23 SEVERE DIARRHEA, C-DIF sulfamethizole Allergy Unknown Unknown Verified 01/29/21 15:23 trimethoprim Allergy Unknown Unknown Verified 01/29/21 15:23 CEFUROXIME AXETIL Allergy Unknown CAUSED Uncoded 01/29/21 15:23 C-DIFF Home Medications Medication Instructions Recorded Confirmed Type estradiol 10 mcg vaginal tablet 10 mcg vaginal 3XW 05/16/19 01/14/22 History (Vagifem) raloxifene 60 mg tablet (Evista) 60 mg PO DAILY 05/16/19 01/14/22 History pantoprazole 40 mg tablet,delayed 40 mg PO BID #180 tabs 03/03/21 01/14/22 Rx release (Protonix) cholecalciferol (vitamin D3) 125 125 mcg PO DAILY 01/14/22 01/14/22 History mcg (5,000 unit) tablet (Vitamin D3) naproxen sodium 220 mg tablet 220 mg PO Q12H PRN Pain 01/14/22 01/14/22 History (Aleve) Current Medications: Active Medications Acetaminophen (Acetaminophen 500 Mg Tablet) 1,000 mg PO Q6H PRN PRN Reason: Mild Pain (1-3) or Fever Last Admin: 01/15/22 01:48 Dose: 1,000 mg Aspirin (Aspirin 81 Mg Enteric Tablet) [facility] [place] Last Admin: 01/15/22 09:44 Dose: 81 mg Atorvastatin Calcium (Atorvastatin 40 Mg Tablet) 80 mg PO DAILY [facility] Last Admin: 01/15/22 09:44 Dose: 80 mg Clopidogrel Bisulfate (Clopidogrel Bisulfate 75 Mg Tablet) [facility] [place] Dextrose/Sodium Chloride (Dextrose 5% Sodium Chloride 0.45%) 1,000 mls @ 75 mls/hr IV CONT .[id number] [facility] Last Admin: 01/15/22 01:47 Dose: 75 mls/hr Sodium Chloride (Normal Saline Iv) 1,000 mls @ 100 mls/hr IV CONT .Q10H ONE Stop: 01/16/22 01:06 Metoprolol Succinate (Metoprolol Succinate Ext Rel 25 Mg Tabcr) 25 mg PO QAM [facility] Perflutren Lipid Microsphere (Perflutren Lipid Microspheres 1.5 Ml Vial Diluted To 10 Ml Total Volume) 0 ml IV PUSH ONCE PRN; Protocol PRN Reason: adequate visualization Stop: 01/16/22 23:17 Sedation/Anesthesia: No previous sedation/anesthesia problems (including family history). [facility] Past Medical History Medical History BMI 26.0-26.9,adult BMI 27.0-27.9,adult History of colitis Hyperlipidemia Family History Family History Grandparent Diabetes mellitus Family history of coronary artery disease Cerebrovascular accident Mother Family history of heart disease in male family member before age 55 Family history of malignant neoplasm of ovary Family history of diabetes mellitus in first degree relative Family history of malignant neoplasm of breast in first degree relative Family history of congestive heart failure Acute myocardial infarction Diabetes mellitus Father Family history of heart disease in male family member before age 55 Family history of lung cancer Acute myocardial infarction Hx of CABG Sibling Family history of malignant neoplasm of breast in first degree relative, Onset Age: 30 Other Carcinoma of colon Social History Social History Smoking status: Never smoker Alcohol intake: never Substance use: never Substance use type: does not use Spiritual care concerns: No Mod Sed Physical Exam Physical Exam Pre Procedural Exam: Normal: Appearance, Lungs, Heart Rate, Heart Rhythm, Neuro Exam, Abdomen, Extremities and Skin Hours since solid foods: 8 Hours since liquid intake: 8 Mallampati Classification: class III Internal Medicine - PN: Obj Da Vital Signs
--- NOTE | 2022-01-15 15:12 | WPDCARDPROC ---
Cardiac Cath Procedure Note Date of procedure:: 01/15/22 Performing physician:: CATHETERIZATION LABORATORY REPORT Procedure Date: 01/15/2022 Wardrobe Attendant: Carlyn Buenrostro M.D., [facility]? Referring Physician: Dr. Blake M.D. Anesthesia: Versed and Fentanyl were ordered and given in my presence at 12:17, procedure ended at 14:49. Supervision of nurse monitored moderate sedation with Versed and Fentanyl was provided for 152 minutes. (Case time was prolonged because there was a STEMI alert in the middle of the case prior to PCI; STEMI alert cancelled, therefore, we proceed with PCI) Total of Versed 2mg and Fentanyl 75mcg were administered by asset availability leader RN. Pre-op Diagnosis: Acute coronary syndrome Post-op Diagnosis: Significant one-vessel coronary artery disease with an 80% stenosis of the proximal LAD s/p successful IVUS-guided PCI of the proximal LAD with JANINA x 1 (4.0mm x 18mm JANINA) Remaining vessels with mild-moderate coronary artery disease Procedure(s): 1. Moderate sedation 2. Ultrasound-guided access of the right radial artery 3. Ultrasound-guided access of the right common femoral artery 4. Coronary angiography 5. IVUS-guided PCI of the proximal LAD with JANINA x 1 (4.0mm x 18mm JANINA) 6. Angioseal closure of the right common femoral artery Access Site: Right radial artery Right common femoral artery Brief History and Clinical Indications: Patient is a 66-year-old female with a history of hyperlipidemia, family history of premature atherosclerosis, hypothyroidism, and GERD who is referred for cardiac cath for NSTEMI / ACS. All risks, benefits and alternatives to left heart catheterization with or without percutaneous coronary intervention was discussed at length with the patient. Risk of complications including but not limited to bleeding, infection, arrhythmia, stroke, worsening kidney function, blood loss, groin hematoma, limb loss, emergency coronary artery bypass grafting, and even were discussed with the patient and all questions were answered. The patient understood and wished to proceed. Time out called, patient name, date of , medical record number, allergies, procedure performed, identify Wardrobe Attendant, patient and staff member concurred with accurate data, procedure carried on. Findings: LEFT HEART CATHETERIZATION FINDINGS: 1. Left main: The left main coronary artery is widely patent without any significant obstructive disease. The left main trifurcates into the LAD, Ramus, and LCX. 2. Left anterior descending: The proximal LAD has an eccentric 80% stenosis. The first diagonal branch has mild diffuse disease. The mid and distal LAD has mild diffuse disease with a focal 60-70% moderate stenosis in the mid-distal LAD. 3. Ramus: The ostium of the ramus has a 40-50% stenosis. 3. Left circumflex: The left circumflex artery and the main marginal branches have mild-moderate diffuse disease without any significant obstructive angiographic disease. 4. Right coronary artery: The RCA is the dominant vessel. The RCA has mild diffuse disease without any significant obstructive angiographic disease. Description of Procedure: Informed consent signed and placed in the chart. Patient transferred to asset availability leader room. Prepped and draped in usual sterile fashion. 2% lidocaine injected subcutaneously in right wrist area. 22-gauge venipuncture catheter used to access the right radial artery with the Seldinger technique. 6-FR slender sheath placed in right radial artery. Nitroglycerine and Cardene was given intraarterial through the sheath. Versacore wire advanced under fluoroscopy 5F Tig 4 diagnostic catheter engaged Right Coronary Artery Multiple orthogonal angiogram obtained and reviewed Unable to engage the left main coronary artery with the Tig and JL4 catheters. Due to difficulty, femoral access was pursued. 2% lidocaine in right groin area. Micropuncture needle used to access right common femoral artery with Seldinger te
--- NOTE | 2022-01-15 15:17 | PC.NURSE ---
This patient, La Charles, was received from IMU 207 on 01/15/22 at 1816. Patient/family oriented to unit policies and routines
[2022-01-15 15:34] LABS: Activated Clotting Time 225 SEC (74-137)
[2022-01-15 15:34] LABS: Activated Clotting Time 156 SEC (74-137)
[2022-01-15 15:34] LABS: Activated Clotting Time 723 SEC (74-137)
[2022-01-15 15:34] LABS: Activated Clotting Time 306 SEC (74-137)
[2022-01-15] MEDS: NITROGLYCERIN/D5W 200 MCG/ML 50 MG/250 ML BTL IV CONT (15:40)
[2022-01-15] MEDS: METOPROLOL SUCCINATE EXT REL 25 MG TABCR PO (15:59)
--- NOTE | 2022-01-15 16:07 | PC.NURSE ---
Cardiopulmonary Rehab Services flyer was given to patient.
[2022-01-15] MEDS: LABETALOL HCL INJ 100 MG/20 ML VIAL 20 MG IV PUSH (17:07)
[2022-01-15] MEDS: ONDANSETRON INJ 4 MG/2 ML VIAL IV PUSH (18:52)
[2022-01-16] VITALS (9 sets, daily range): BP systolic 105–131; BP diastolic 48–62; PULSE 67–82; RESP 12–21; TEMP 36.5–36.9; O2SAT 91–96
[2022-01-16] MEDS: ATORVASTATIN 40 MG TABLET 80 MG PO (07:59)
[2022-01-16] MEDS: ASPIRIN 81 MG ENTERIC TABLET PO (07:59)
[2022-01-16] MEDS: CLOPIDOGREL BISULFATE 75 MG TABLET PO (07:59)
[2022-01-16] MEDS: METOPROLOL SUCCINATE EXT REL 25 MG TABCR PO (07:59)
--- NOTE | 2022-01-16 09:00 | WPDCNINT ---
Assessment and Plan Assessment and plan (1) NSTEMI (non-ST elevated myocardial infarction): Code(s): I21.4 - Non-ST elevation (NSTEMI) myocardial infarction Status: Acute Assessment and Plan: Status post PCI and stent placement in proximal LAD Currently chest pain-free Telemetry monitoring Continue aspirin beta-robert statin and Plavix Echo reviewed (2) Hyperlipidemia: Code(s): E78.5 - Hyperlipidemia, unspecified Status: Acute Assessment and Plan: Continue statin (3) Uncontrolled hypertension: Code(s): I10 - Essential (primary) hypertension Status: Acute Assessment and Plan: Nitroglycerin infusion has been weaned off Blood pressure improved after p.o. metoprolol Plan DVT prophylaxis -I expect patient to ambulate today Nutrition -heart healthy Code Status - Full Code Transfer out ICU today Business Development Manager Consult Note Consult date: 01/16/22 Reason for consult: NSTEMI HPI: La Charles is a 66 year old female with past medical history of colitis and hyperlipidemia who is noncompliant with the medication presented 01/14 with chest pain. Patient states that she was working in the yd started having palpitation which was followed by pressure like pain in the middle of chest 10 severe, radiated to her neck and left shoulder. Pain was associated with nausea. She came to ER by the time she reached the ER her symptoms had resolved. She had mildly elevated troponin the ED. she was diagnosed with non ST segment elevation LA and treated medically. Cardiology was consulted and echocardiogram was done.. Yesterday patient was taken to cardiac catheterization lab where a PCI was done with stent placement to LAD. She had elevated blood pressure during the procedure. Started on nitroglycerin infusion. Post procedure she was admitted to ICU for further evaluation management. Overnight nitroglycerin infusion has been weaned off as a blood pressure improved. This morning she states that she does not have any chest pain at this time and feels good. Patient denies fever, chest pain, shortness of breath, cough, nausea vomiting, abdominal pain,, diarrhea, headache or constipation. Review of system was positive for discomfort at the site of catheterization in right groin. All other systems were reviewed and were negative Review of Systems Review of Systems: All systems reviewed & are unremarkable except as noted in HPI and below (HPI) [facility] Past Medical History Medical History BMI 26.0-26.9,adult BMI 27.0-27.9,adult History of colitis Hyperlipidemia Family History Family History Grandparent Diabetes mellitus Family history of coronary artery disease Cerebrovascular accident Mother Family history of heart disease in male family member before age 55 Family history of malignant neoplasm of ovary Family history of diabetes mellitus in first degree relative Family history of malignant neoplasm of breast in first degree relative Family history of congestive heart failure Acute myocardial infarction Diabetes mellitus Father Family history of heart disease in male family member before age 55 Family history of lung cancer Acute myocardial infarction Hx of CABG Sibling Family history of malignant neoplasm of breast in first degree relative, Onset Age: 30 Other Carcinoma of colon Social History Social History Smoking status: Never smoker Alcohol intake: never Substance use: never Substance use type: does not use Spiritual care concerns: No Meds Home Medications and Allergies Home Medications Medication Instructions Recorded Confirmed Type estradiol 10 mcg vaginal tablet 10 mcg vaginal 3XW 05/16/19 01/14/22 History (Vagifem) raloxifene 60 mg tablet (Evista) 60 mg PO DAILY 05/16/19 01/14/22 His
[2022-01-16 09:25] LABS: Hematocrit 38.8 % (37.0-47.0); Hemoglobin 12.8 g/dL (12.0-15.0); Mean Corpuscular Hemoglobin 29.7 pg (26-34); Mean Platelet Volume 9.4 fl (7.4-10.4); Platelet Count Result 288 k/mm3 (150-375); Red Blood Count 4.31 M/mm3 (4.2-5.4); Red Cell Distribution Width 13.2 % (11.5-14.5); White Blood Count 9.2 K/mm3 (4.5-10.0)
[2022-01-16 09:36] LABS: Alanine Aminotransferase 26 U/L (6-35); Albumin Level 3.8 g/dL (3.5-5.1); Alkaline Phosphatase 103 U/L (38-126); Anion Gap 9 mmol/L (8-16); Aspartate Amino Transferase 52 U/L (14-36); Bilirubin,Total 0.4 mg/dL (0.2-1.3); Blood Urea Nitrogen 14 mg/dL (7-17); Calcium 8.7 mg/dL (8.4-10.2); Carbon Dioxide 21 mmol/L (22-30); Chloride 108 mmol/L (98-107); Estimated CRCL calculation 63 ml/min; Estimated Glomerular Filt Rate > 60; Glucose 113 mg/dL (65-110); Potassium 3.8 mmol/L (3.4-5.0); Sodium 138 mmol/L (137-145)
--- NOTE | 2022-01-16 09:51 | PM.PNCARD ---
Progress Note: A&P Assessment and Plan (1) NSTEMI (non-ST elevated myocardial infarction): Code(s): I21.4 - Non-ST elevation (NSTEMI) myocardial infarction Status: Acute Plan 66-year-old lady with new diagnosis of coronary artery disease underwent PCI of the proximal LAD yesterday with good angiographic outcome. She is stable this morning. Patient reports that the plan is for transfer out of ICU today and consider discharge tomorrow. Told her that sounds fine with me. Once again discussed in significant detail with her the importance of strict adherence to anti-platelet therapy. She is appreciative of the care that she has received. Kota Mills MD [facility] Subjective Date/time seen: Date of service:01/16/22 09:51 Interval history: Follow-up visit in this 66-year-old lady with: Coronary artery disease with high-grade stenosis in the proximal LAD treated yesterday with PCI using drug-eluting stent with a good anatomic result. She has mild to moderate mid disease in the LAD with will be treated medically. Feels well this morning does not have any complaints following angiography and intervention. Long discussion with the patient about the if strict importance of dual anti-platelet therapy for the near future Exam Const: General: comfortable and no acute distress HENMT: Mouth: Yes moist mucous membranes Eyes: Sclera: sclerae normal Pupils: Equal, round and reactive pupils present Neck: Neck: supple and no JVD Other: carotid pulses are intact bilaterally no bruits Resp: Effort & Inspection: normal respiratory effort Auscultation: clear to auscultation bilaterally Cardio: Rate: regular rate Rhythm: regular rhythm Other: PMI of normal location and activity no murmur no gallop GI: GI Palp: Yes Soft to palpation Auscultation: normal bowel sounds Skin: General skin exam: normal color Neuro: Other: alert and oriented x3 Extrem: Other: no edema, good pulses Objective Data Vital Signs Vital Signs: Vital Signs - 24 hr 01/15/22 10:00 01/15/22 12:00 01/15/22 15:59 Temperature 36.3 C L Pulse Rate 71 65 79 Respiratory Rate 20 Blood Pressure 160/63 H Pulse Oximetry 97 Oxygen Delivery 01/15/22 15:40 01/15/22 15:55 01/15/22 16:10 Temperature Pulse Rate 101 H 95 74 Respiratory Rate Blood Pressure 155/73 H 149/77 H 114/71 Pulse Oximetry Oxygen Delivery 01/15/22 17:07 01/15/22 16:00 01/15/22 18:00 Temperature Pulse Rate 74 68 Respiratory Rate Blood Pressure Pulse Oximetry Oxygen Delivery Room Air 01/15/22 18:06 01/15/22 16:00 01/15/22 15:30 Temperature Pulse Rate 70 78 81 Respiratory Rate 18 23 H Blood Pressure 138/69 155/73 H Pulse Oximetry 94 90 Oxygen Delivery 01/15/22 16:00 01/15/22 16:15 01/15/22 16:30 Temperature 36.3 C L Pulse Rate 78 73 77 Respiratory Rate 16 18 15 Blood Pressure 114/71 140/78 149/69 H Pulse Oximetry 92 95 95 Oxygen Delivery 01/15/22 17:00 01/15/22 15:45 01/15/22 18:30 Temperature Pulse Rate 74 79 73 Respiratory Rate 19 15 Blood Pressure 158/83 H 149/77 H 128/67 Pulse Oximetry 95 93 Oxygen Delivery 01/15/22 19:26 01/15/22 19:00 01/15/22 20:00 Temperature 36.9 C Pulse Rate 70 74 78 Respiratory Rate 15 17 Blood Pressure 129/44 L 123/64 128/52 L Pulse Oximetry 93 91 Oxygen Delivery 01/15/22 21:00 01/15/22 20:00 01/15/22 20:00 Temperature Pulse Rate 73 78 Respiratory Rate 16 Blood Pressure 119/51 L Pulse Oximetry 91 91 Oxygen Delivery Room Air 01/15/22 22:00 01/15/22 22:00 01/16/22 00:00 Temperature 36.9 C Pulse Rate 78 78 72 Respiratory Rate 16 16 Blood Pressure 114/48 L 115/55 L Pulse Oximetry 93 93 Oxygen Delivery 01/16/22 00:00 01/16/22 00:00 01/16/22 02:00 Temperature Pulse Rate 72 73 Respiratory Rate Blood Pressure Pulse Oximetry 93 Oxygen Delivery Room Air 01/16/22 02:00
--- NOTE | 2022-01-16 12:55 | PM.DS ---
DS: Admitting Diagnosis Discharge Date 01/16/2022 Admitting Diagnosis Non-STEMI DS: Discharge Diagnosis Discharge Diagnosis (1) Chest pain: Code(s): R07.9 - Chest pain, unspecified Status: Acute (2) NSTEMI (non-ST elevated myocardial infarction): Code(s): I21.4 - Non-ST elevation (NSTEMI) myocardial infarction Status: Acute (3) Uncontrolled hypertension: Code(s): I10 - Essential (primary) hypertension Status: Acute DS: Summary Hospital Course Hospital Course: Non ST-elevation CO started on aspirin Lovenox cardiology consult.? Retrosternal chest pain with nonspecific EKG changes.? Troponin initially 0.042 6-3.8 subsequently suggestive of non ST-elevation CO. Total cholesterol high at 284 LDL of 174 and triglyceride of 372 atorvastatin 80 mg daily.? Of the she has always been hard to control likely suggestive of familial hypercholesterolemia has significant family history of coronary artery disease. Chest x-ray mild atelectasis in left lower lung zone. He underwent cardiac catheterization on 01/15/2022 which showed: Significant one-vessel coronary artery disease with an 80% stenosis of the proximal LAD s/p successful IVUS-guided PCI of the proximal LAD with JANINA x 1 (4.0mm x 18mm JANINA) Remaining vessels with mild-moderate coronary artery disease Needs to be on dual antiplatelet therapy. High-intensity statin started on metoprolol. Post cath she had a sedated hypertension with blood pressure more than 180 mm Hg and was started on nitroglycerin drip. This was tapered off in the ICU and remained stable. Hypertension uncontrolled on metoprolol follow-up with turbine operator and/or PCP for this. GERD Nonsustained ventricular tachycardia Family history of coronary artery disease DVT prophylaxis Lovenox Time Spent with Patient Time attestation: Total time spent providing and/or coordinating discharge services: 45 minutes Exam Narrative: General: Pt is alert awake and in NAD Lungs/Chest: Trachea central Clear BS B/L, No crackles or wheezing. Cardiac: RRR. Normal S1 S2. No murmurs Circulation: Pedal pulses are intact and symmetrical. Abdomen: Normal bowel sounds.. Soft. NT. ND. Extremities: No clubbing, cyanosis or edema. Neurologic: Follows commands. Moves all 4 extremities PERRL Skin: No Rash DS: Data Data Completed and Pending Labs on day of discharge: Labs from last 24 hours 01/16/22 01/16/22 01/16/22 09:05 09:05 09:05 WBC 9.2 RBC 4.31 Hgb 12.8 Hct 38.8 MCV 90.0 MCH 29.7 MCHC 33.0 RDW 13.2 Plt Count 288 MPV 9.4 Activ Coag Time Kaolin Sodium 138 Potassium 3.8 Chloride 108 H Carbon Dioxide 21 L Anion Gap 9 BUN 14 D Creatinine 0.70 Estim Creat Clear Calc 63 Estimated GFR > 60 Glucose 113 H Calcium 8.7 Magnesium 2.0 Total Bilirubin 0.4 AST 52 H ALT 26 Alkaline Phosphatase 103 Troponin I 2.880 H* Total Protein 7.0 Albumin 3.8 TSH (Reflex) 1.360 01/15/22 01/15/22 01/15/22 14:41 14:21 14:01 WBC RBC Hgb Hct MCV MCH MCHC RDW Plt Count MPV Activ Coag Time Kaolin 225 H 723 H 306 H Sodium Potassium Chloride Carbon Dioxide Anion Gap BUN Creatinine Estim Creat Clear Calc Estimated GFR Glucose Calcium Magnesium Total Bilirubin AST ALT Alkaline Phosphatase Troponin I Total Protein Albumin TSH (Reflex) 01/15/22 13:44 WBC RBC Hgb Hct MCV MCH MCHC RDW Plt Count MPV Activ Coag Time Kaolin 156 H Sodium Potassium Chloride Carbon Dioxide Anion Gap BUN Creatinine Estim Creat Clear Calc Estimated GFR Glucose Calcium Magnesium Total Bilirubin AST ALT Alkaline Phosphatase Troponin I Total Protein Albumin TSH (Reflex) Procedures/Treatments: Cardiac Cath Procedure Note Date of procedure:: 01/15/22 Performing phys
== END 2022-01-16 13:41 | disposition home or self-care (01) | DRG 247 ==
LOC: ANHED 18:18 → ANHIMU 20:37 → ANHICU 01-15 15:14
PROVIDERS: Internal Medicine; Internal Medicine Cardiovascular Disease; Admitting Provider Hospitalist; Emergency Provider Emergency Medicine; PCP Family Medicine; Visit Provider Internal Medicine
PROC: 027034Z Dilation of Coronary Artery, One Artery with Drug-eluting Intraluminal Device, Percutaneous Approach (ICD-10-PCS; CPT 93454; principal; 2022-01-15 12:00)
PROC: 027034Z Dilation of Coronary Artery, One Artery with Drug-eluting Intraluminal Device, Percutaneous Approach (ICD-10-PCS; CPT 36140; 2022-01-15 12:00)
PROC: 027034Z Dilation of Coronary Artery, One Artery with Drug-eluting Intraluminal Device, Percutaneous Approach (ICD-10-PCS; 2022-01-15 12:00)
PROC: 027034Z Dilation of Coronary Artery, One Artery with Drug-eluting Intraluminal Device, Percutaneous Approach (ICD-10-PCS; 2022-01-15 12:00)
PROC: 027034Z Dilation of Coronary Artery, One Artery with Drug-eluting Intraluminal Device, Percutaneous Approach (ICD-10-PCS; 2022-01-15 12:00)
DX: I21.4 Non-ST elevation (NSTEMI) myocardial infarction (principal); I47.29 Other ventricular tachycardia; I25.10 Atherosclerotic heart disease of native coronary artery without angina pectoris; E03.9 Hypothyroidism, unspecified; K21.9 Gastro-esophageal reflux disease without esophagitis; I10 Essential (primary) hypertension; Z20.822 Contact with and (suspected) exposure to COVID-19; Z79.899 Other long term (current) drug therapy; Z87.19 Personal history of other diseases of the digestive system; Z91.14 Patient's other noncompliance with medication regimen
CPT/HCPCS: 36140; 36415; 71046; 80053; 80061; 83690; 83735; 84443; 84484; 85025; 85027; 85610; 85730; 92978; 93005; 93306; 93454; 96365; 96372; 96374; 96375; 99285; A9270; C1725; C1753; C1760; C1769; C1874; C1887; C1894; C9600; C9803; G0269; G0378; J1644; J1650; J2250; J2270; J2405; J3010; J7030; J7040; U0003; U0005

== ENCOUNTER 2022-02-06 12:59 | Outpatient (CLI) | payer MEDICARE, OTHER, SELFPAY ==
--- NOTE | ~2022-02-06 | DEXA_ITS ---
Bone Density Report Name: RAEJEV RAMIREZ Age: 66 Sex: Female Ethnicity: White Date of : 1955 Indication: postmenopausal; screening for osteoporosis; height loss; hysterectomy; Referring Provider: MELANIE, HEATHER Fonseca Study: Bone densitometry was performed. Exam Date: February 06, 2022 Accession number: [id number] Bone Density: Region BMD T-score Z-score Classification AP Spine(L1-L4) 0.779 -2.4 -0.5 Osteopenia Femoral Neck (Left) 0.626 -2.0 -0.3 Osteopenia Total Hip (Left) 0.754 -1.5 -0.1 Osteopenia Femoral Neck (Right) 0.638 -1.9 -0.2 Osteopenia Total Hip (Right) 0.789 -1.3 0.1 Osteopenia Total Hip Mean 0.771 -1.4 0.0 Osteopenia World Health Organization criteria for BMD impression classify patients as: Normal (T-score at or above -1.0), Osteopenia (T-score between -1.0 and -2.5), or Osteoporosis (T-score at or below -2.5). 10-year Fracture Risk: FRAX not reported because: Treated for osteoporosis Clinical Information Provided by Patient: Is being treated for osteoporosis Has used the following medications: Evista (i.e. raloxifene), Vitamin D Has the following medical conditions: Hysterectomy Patient maximum height was 67 Menopause Age: 45 Onset of menses at age 10 Number of children 2 Impression: The patient has low bone mass, based on the Total Spine T-score. Discussion: It is important to ask patients whether they are taking their medications and to encourage continued and appropriate compliance with their osteoporosis therapies to reduce fracture risk. It is also important to review their risk factors and encourage appropriate calcium and vitamin D intakes, exercise, fall prevention and other lifestyle measures. Follow-Up: Consider a repeat BMD and Vertebral Fracture Assessment (VFA) exam in 2 years or sooner if medically necessary, to reassess this patient's status. Reported by: MALGORZATA on 02/06/2022 1:22:00 PM. Reviewed, dictated and finalized at location [facility]
== END 2022-02-06 13:00 | disposition home or self-care (01) ==
PROVIDERS: PCP Family Medicine; Visit Provider Nurse Practitioner Obstetrics & Gynecology
DX: Z78.0 Asymptomatic menopausal state (principal); M85.89 Other specified disorders of bone density and structure, multiple sites
CPT/HCPCS: 77080

== ENCOUNTER 2022-02-26 15:00 | Outpatient (RCR) | payer MEDICARE, OTHER, SELFPAY ==
[2022-02-20 12:08] VITALS: PULSE 72
== END 2022-02-26 18:11 | disposition home or self-care (01) ==
LOC: ANHCPREHAB 15:00
PROVIDERS: PCP Family Medicine; Visit Provider Nurse Practitioner Adult Health
DX: Z95.5 Presence of coronary angioplasty implant and graft (principal)
CPT/HCPCS: 93798

== ENCOUNTER → 2022-07-30 07:14 | Outpatient (CLI) | payer MEDICARE, OTHER, SELFPAY ==
--- NOTE | ~2022-07-30 | XR_ITS ---
XR chest 2V DATE: 07/30/2022 07:24 INDICATION: Acute bronchitis. Cough. TECHNIQUE: 2 views COMPARISON: 01/14/2022 PA and lateral chest FINDINGS: Normal heart size. Calcification of the descending thoracic aorta. No hilar or mediastinal enlargement. Prominent left cardiophrenic fat pad. No pulmonary infiltrate or consolidation, pleural effusion or pulmonary vascular congestion or pneumothorax. Osteopenia. Thoracic and lumbar scoliosis. Mild degenerative change of the thoracic spine. IMPRESSION: No active cardiopulmonary disease Reviewed, dictated and finalized at location L.
== END ==
PROVIDERS: PCP Family Medicine; Visit Provider Physician Assistant Medical
DX: J20.9 Acute bronchitis, unspecified (principal)
CPT/HCPCS: 71046

== ENCOUNTER 2022-11-17 08:18 | Outpatient (CLI) | payer MEDICARE, OTHER, SELFPAY ==
--- NOTE | ~2022-11-17 | XR_ITS ---
Lumbosacral Spine: AP and lateral views Clinical History: Pain Findings: The normal lordotic curve is maintained. The vertebral bodies and posterior elements are i ntact. The intervertebral disc spaces are preserved. There is mild facet arthropathy at L4-L5 and L5 -S1. The sacroiliac joints are normally outlined. Impression: Mild facet arthropathy at L4-L5 and L5-S1. Reviewed, dictated and finalized at location . Impression: Mild facet arthropathy at L4-L5 and L5-S1.
--- NOTE | ~2022-11-17 | XR_ITS ---
AP view of the pelvis and AP and lateral views of the right hip Clinical history: Pain Findings: No acute fracture or dislocation is seen. Osseous alignment is anatomic. Bilateral hip and SI joint spaces are preserved. Soft tissues are unremarkable. Impression: No significant abnormality is seen. Reviewed, dictated and finalized at location . Impression: No significant abnormality is seen.
== END 2022-11-17 08:19 | disposition home or self-care (01) ==
PROVIDERS: PCP Family Medicine; Visit Provider Physician Assistant Medical
DX: M25.551 Pain in right hip (principal); M54.31 Sciatica, right side; G89.29 Other chronic pain; M47.817 Spondylosis without myelopathy or radiculopathy, lumbosacral region
CPT/HCPCS: 72100; 73502

== ENCOUNTER 2022-12-18 09:00 | Outpatient (RCR) | payer MEDICARE, OTHER, SELFPAY ==
--- NOTE | 2022-11-20 11:56 | OPREHPOC ---
Outpatient Therapy Plan of Care This is a Multidisciplinary Plan of Care that may contain components documented by all disciplines (PT, OT, and ST.) PT Problem 1 PT Problem #1 Knowledge Deficit PT Goal 1 Goal Pt to be IND with issued HEP Target Visit 8 PT Problem 2 PT Problem #2 Pain PT Goal 1 Goal Pt to report low back/ R hip pain no greater than 3/10 in the last week. Target Visit 8 PT Goal 2 Goal Pt to report 75% improvment in overall symptoms Target Visit 8 PT Problem 3 PT Problem #3 Impaired Sensation PT Goal 1 Goal Pt to decline altered sensation in the last week Target Visit 8 PT Goal 2 Goal Pt to report equal stretch sensation with passive piriformis stretching. Target Visit 8 PT Problem 4 PT Problem #4 Impaired Functional Mobil PT Goal 1 Goal Pt to report being able to stand for 30 mins without needing to sit. Target Visit 8 PT Goal 2 Goal Pt to report being able to walk for 20 mins before needing to sit Target Visit 8
--- NOTE | 2022-11-20 11:56 | PTOPEVAL1 ---
Assessment and note entered by Leonel Toney, PT, DPT Evaluation Information Assessment Status Evaluation Diagnosis R anterior thigh pain Onset 3 months Subjective Information Pt states she feel a couple of months ago on her R hip. She states since then she has felt a clicking in her hip and her anterior thigh down to her knee goes numb when she is standing for any length of time. She states if she tries to work through the pain she will get a burning feeling down the front of her thigh. She states sitting of laying the feeling will go away but starts again as soon as she stands. Reported Pain Level Pain Score 4: Self Report Assessment PT Clinical Summary La presents to therapy today for her initial evaluation with a diagnosis of chronic back pain and R hip pain. Today she demonstrates decreased R hip ROM and strength compared to her L side, limited by pain. She has decreased hip ROM argelia and ambulates with decreased pelvic and trunk rotation with lack of terminal hip extension. She has increased soft tissue density with tenderness to palpation in her argelia lumbar paraspinals and R piriformis. Skilled therapy services are indicated to decreased neural compression, to improve ROM, to manage pain, and to return to PLOF without limitations. Plan of Care Interventions Electrical Stimulation,Gait Training,Hot Pack/Cold Pack,Manual Therapy,Neuro Re-education,Patient/ Caregiver Educati,Therapeutic Activities, Therapeutic Exercise PT Services Indicated Yes Treatment Frequency and 2x/wk for 4 wks Duration These treatments will address the objective and functional deficits as defined above. The patient will be advanced safely and appropriately in order for the patient to progress towards his/her prior level of function. Additional exercises will be introduced and as well as a comprehensive home exercise program upon discharge, if needed, ?to ensure carryover of functional gains achieved in the clinic. This treatment plan has been reviewed and agreement upon by the patient.
--- NOTE | 2022-12-18 09:23 | PTOPDC ---
Assessment and note entered by Leonel Toney, PT, DPT Evaluation Information Assessment Status Discharge Diagnosis R anterior thigh pain Onset 3 months Subjective Information Pt states things are doing much better. She states with her exercises she feels like she knows how to help her pain. She reports her numbness her numbness no longer goes down to her knee but does still have some intermittent numbness in her R hip with excessive movement. Pt reports 95% improvement in overall symptoms. Pt states she was able to spend the whole day at an [employer] without needing to take a break. Reported Pain Level Pain Score 0,0: Self Report Assessment PT Clinical Summary La presents to therapy today for her progress report following 8 visits of therapy to treat her diagnosis of chronic back pain and R hip pain. Today she demonstrates hip and lumbar ROM that is pain free and is WFL. She has met or progressed well towards her therapy goals and will be discharged at this time. Plan of Care PT Services Indicated No
== END 2022-12-18 09:35 | disposition home or self-care (01) ==
LOC: ANHGOSHPT 09:00
PROVIDERS: PCP Family Medicine; Visit Provider Physician Assistant Medical
DX: M54.31 Sciatica, right side (principal); M25.551 Pain in right hip; G89.29 Other chronic pain
CPT/HCPCS: 97014; 97110; 97112; 97140; 97161; 97530; G0283

== ENCOUNTER 2023-01-18 08:01 | Outpatient (CLI) | payer MEDICARE, OTHER, SELFPAY ==
[2023-01-18 08:28] LABS: Kit Draw Collected
== END 2023-01-18 08:02 | disposition home or self-care (01) ==
LOC: ANHGOSHLAB 08:05
PROVIDERS: PCP Family Medicine; Visit Provider Internal Medicine Cardiovascular Disease
DX: E78.2 Mixed hyperlipidemia (principal)
CPT/HCPCS: 36415

== ENCOUNTER 2023-08-12 13:09 | Outpatient (CLI) | payer MEDICARE, OTHER, SELFPAY ==
--- NOTE | ~2023-08-12 | MMUS_ITS ---
EXAMINATION: MM diagnostic joyce BI w oziel, US breast BI complete HISTORY: Right breast pain TECHNIQUE: ML, MLO and CC 3-D tomosynthesis images of both breasts were performed and synthetic 2-D i mages were generated. CAD analysis was submitted and interpreted. High resolution complete bilateral breast ultrasound examination including all 4 quadrants and subareolar area of each breast was perfor med. COMPARISON: 10/07/2021 diagnostic bilateral mammogram BREAST PARENCHYMAL COMPOSITION: There are scattered areas of fibroglandular density. FINDINGS: MAMMOGRAPHIC FINDINGS: Scattered bilateral benign calcifications. Stable right upper outer quadrant c ircumscribed small opacity consistent with benign intramammary lymph node. No suspicious mass or architectural distortion, malignant calcification, skin thickening or retractio n or significant new or developing density is detected. ULTRASOUND: No suspicious mass or shadowing of either breast is detected. Approximately 4 mm cyst at left breast 2:00 8 cm from nipple. IMPRESSION: 1. Benign findings 2. Routine annual mammographic screening is recommended BI-RADS Category 2: Benign finding(s). Reviewed, dictated and finalized at location A. IMPRESSION: 1. Benign findings 2. Routine annual mammographic screening is recommended BI-RADS Category 2: Benign finding(s).
== END 2023-08-12 13:10 | disposition home or self-care (01) ==
PROVIDERS: PCP Family Medicine; Visit Provider Nurse Practitioner Obstetrics & Gynecology
DX: N64.4 Mastodynia (principal)
CPT/HCPCS: 76641; 77062; 77066; G0279

== ENCOUNTER 2024-01-07 10:15 | Outpatient (RCR) | payer MEDICARE, OTHER, SELFPAY ==
--- NOTE | 2023-11-24 14:37 | OPREHPOC ---
Outpatient Therapy Plan of Care This is a Multidisciplinary Plan of Care that may contain components documented by all disciplines (PT, OT, and ST.) PT Problem 1 PT Problem #1 Knowledge Deficit PT Goal 1 Goal *indep with HEP * good safety awareness demonstrated with mobility Target Visit 10 PT Problem 2 PT Problem #2 Impaired Vestibular System PT Goal 1 Goal improve vestibular system to improve mobility skills: good occulomotor control in standing x 20 reps, without symptoms: 1* eye tracking R/L smooth 2* eye tracking up/down 3* gaze stabilization with head motions R/L 4* gaze stabilization with head motion up/down Target Visit 10 PT Problem 3 PT Problem #3 Impaired Functional Mobility PT Goal 1 Goal pt perform without a loss of balance: 1* single leg standing R x 30 seconds 2* single leg standing L x 30 seconds 3* pt walk 50' with head motions R/L 3x each 4* pt walk 50' with head motion up/down 3x each 5* pick at item up off the floor Target Visit 10
--- NOTE | 2023-11-24 14:38 | PTOPEVAL1 ---
Assessment and note entered by Linda Salinas, PT Evaluation Information Assessment Status Evaluation ICD-10 Condition Codes (PT) Repeated falls R29.6,Difficulty Walking R26.2,R26. 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 She reports chronic issues with being off balance and recent falls- with leaning forward and/or turning. Dizziness Handicap index rating of 22% limitation in activity. She had good safety awareness and does the stairs one step at a time and holds onto the railing. She does try to do fitness exercises and walking. With the evaluation: Beattie Oliveira pike testing was negative; symptoms increased with sitting eye tracking and gaze stabilization; balance was affected with standing eyes closed and tandem standing. Skilled PT services are indicated for vestibular rehab-- occulomotor retraining, gait and balance retraining to improve mobility and safety, to decrease risk for future falls. Education for home exercises, vestibular system and safety. Plan of Care Interventions Neuro Re-education,Patient Education, Therapeutic Activities,Therapeutic Exercise PT Services Indicated Yes Treatment Frequency and 1-2x/wk for 10 visits Duration These treatments will address the objective and fun
--- NOTE | 2024-01-14 11:57 | PTOPDC ---
Assessment and note entered by Linda Salinas, PT Discharge Report Assessment Status Discharge - Pt Not Present ICD-10 Condition Codes (PT) Repeated falls R29.6,Difficulty Walking R26.2,R26. 9,Dizziness & Giddiness R42 Other ICD-10 Condition Codes ( falls Z91.81 PT) Onset few years Subjective Information at the last PT session on Jan 06, she reports she is doing well and wanted to be discharged from therapy. Assessment PT Clinical Summary La has received 6 PT sessions. At her Jan 06 appointment, she stated she was doing well and wanted to be done with therapy. The goals were checked by the FENDER REPAIRER and all were achieved. Discharge PT services. Plan of Care PT Services Indicated No
== END 2024-01-14 12:32 | disposition home or self-care (01) ==
LOC: ANHPT 10:15
PROVIDERS: PCP Family Medicine; Visit Provider Physician Assistant Medical
DX: R26.2 Difficulty in walking, not elsewhere classified (principal); R42 Dizziness and giddiness
CPT/HCPCS: 97110; 97112; 97161; 97530

== ENCOUNTER 2024-08-18 00:26 | Day surgery (SDC) | payer MEDICARE, OTHER, SELFPAY ==
[2024-08-17 11:04] VITALS: BMI 29.2
[2024-08-18] VITALS (9 sets, daily range): BP systolic 101–140; BP diastolic 51–76; PULSE 55–75; RESP 13–21; TEMP 36.6; O2SAT 91–98; BMI 28.2
--- OUTSIDE RECORDS SUMMARY | 2024-08-18 00:29 | XMS_ITS | Data Portability ---
Author Organization [facility] [place] Address [address] [place] [address] [place] [address] Care Team Providers Care Embedded Systems Developer Name Role Phone SRIRAM RAWLS Primary Care Provider [phone] Assessment Encounter Date Assessment Date Assessment LastModified by Organization Details LastModified Time 01/04/2020 01/04/2020 Annual gynecological exam performed. Patient will come back in a year unless there are new symptoms. [email or web address] Not available 01/04/2020 09:35:08 01/07/2022 01/07/2022 Annual gynecological exam performed. Patient will come back in a year unless there are new symptoms. Not available 02/24/2021 17:36:05 Plan of Treatment Reminders Order Date Submit Date Provider Last Modified By Organization Details Last Modified Time Details Appointments None recorded. Lab None recorded. Referral None recorded. Procedures None recorded. Surgeries None recorded. Imaging MAMMO, screening, bilateral [address] [facility], [address], [place], [address], 4 11:21:25 US, breast, unilateral, w/ axilla [address] [facility], [address], [address], [place], [address], 4 11:21:25 MAMMO, diagnostic, digital, bilateral 2021 022 [facility], [address], [address], [place], [address], 2 09:27:10 MAMMO, diagnostic, digital, bilateral 2019 020 [facility], [facility] [address], [address], 0 15:23:35 US, breast [address], [facility] [address] [facility], [place], [address], 0 11:22:07 DEXA, axial skeleton + vertebral fracture assessment 2019 020 [facility], [address] [address], [place], [address], 0 13:34:32 Medication Orders Imvexxy Maintenance Pack 10 mcg vaginal insert 2022 023 [facility], [facility] [place], [address], 3 15:33:00 Imvexxy Starter Pack 10 mcg vaginal insert, dose pack 2021 022 [email or web address] 1 [id number], [address] [place], [place], [id number], 3 09:30:11 Vagifem 10 mcg vaginal tablet 2021 022 [place] [address] [facility], [address] [place], [address], 3 15:56:09 raloxifene 60 mg tablet 2021 022 [facility], [address] , [place], [address], 2 10:11:28 mupirocin 2 % topical ointment 2021 022 [email or web address] 1 [facility], [address] , [place], [address], 3 09:30:18 Patient TargetsNo targets recorded. Patient Instructions Encounter Date Encounter Id Patient Instructions Last Modified By Organization Details Last Modified Time 01/04/2020 [id number] [email or web address] Not available 10:16:20 Reason for Referral None Reported. Results Created Date Observation Date Name Description Value Unit Range Abnormal Flag Note LastModifiedBy Organization Detail LastModifiedTime 02/06/2002/06/2020 MAMMO , diagn ostic , digit al, bilat eral No observ ation record ed. [address] [facility], [place], [address], 02/07/2020 20:28:33 02/07/20 20 02/06/2020 DEXA, axial skele ton + verte bral fract ure asses sment No observ ation record ed. [address], [place], [address], 02/14/2020 12:05:18 02/12/20 MAMMO , diagn ostic , digit al, bilat eral No observ ation record ed. [facility] [address] [place] [address] Rte [facility], [place], [address], 02/18/2020 18:34:55 11/27/19 21 11/26/2020 US, abdom en No observ ation record ed. [facility] [address], [place], [address], 12/02/2020 13:07:49 10/29/19 MAMMO , diagn ostic , digit al, bilat eral No observ ation record ed. [facility] [address], [place], [address], 10/31/2021 16:38:24 02/20/20 22 02/06/2022 DEXA, axial skele ton No observ ation record ed. [facility] [address], [place], [address], 12/24/2022 09:30:42 Result Notes Documentation Provider Name and Address Organization Details Recorded Time Mammo, Diagnostic, Digital, Bilateral : Bilateral dx mamm and rt breast us Kuldip [facility] 02/07/2020 13:49:22 Lipid Panel, Blood : cmp and cbc Kuldip Mata [facility] 02/23/2020 16:59:49 Problems Name Problem SNOMED Code Status Onset Date Resolution Date Notes Provider Name and Address Organization Details Recorded Time Screenin g for malignan t neoplasm of rectum Completed 201602/24/2021 Encounter for screening for malignant neoplasm of rectum;Pr actice ID: [id number] Radha Dela Cruz [facility] 17:26:52 Dysuria [id number] Completed 201702/24/2021 Dysuria;P ractice ID: [id number] Radha Dela Cruz [facility] 17:26:41 Evaluati on finding Completed 201702/24/2021 Hematuria , unspecifi ed;Practi ce ID: 0001 Radha Dela Cruz [facility] 17:26:[address] Concept Completed 201702/24/2021 Encounter for general adult medical exam w abnormal findings; Practice ID: 0001 Radha Dela Cruz [facility] 17:26:[address] Concept Completed 201702/24/2021 Encntr for rehab rn exam (general) (routine) w/o abn findings; Practice ID: [id number] Radha Dela Cruz [facility] 17:26:[address] Concept Completed 201802/24/2021 Encntr for general adult medical exam w/o abnormal findings; Practice ID: [id number] Radha Dela Cruz [facility] 17:26:[address] Concept Completed 201602/24/2021 Encounter for general rehab rn exam with abnormal findings; Recorded Elsewhere : No Locati on: [facility] So urce: EHR Chron ic: N Practic e ID: 0001 Bill able Time: 08:30:00 AM Radha Dela Cruz [facility] 17:26:56 Microsco pic hematuri a [id number] Completed 201602/24/2021 Other microscop ic hematuria ;Recorded Elsewhere : No Locati on: [facility] So urce: EHR Chron ic: N Practic e ID: 0001 Bill able Time: 08:30:00 AM Radha Dela Cruz [facility] 17:26:46 Hyperten sive disorder [id number] Completed 201602/24/2021 Hypertens ion;Recor ded Elsewhere : No Locati on: [facility] So urce: EHR Chron ic: N Practic e ID: 0001 Bill able Time: 08:30:00 AM Radha Dela Cruz [facility] 17:26:44 Acute vaginiti s [id number] Completed 201502/24/2021 Vaginitis ;Recorded Elsewhere : No Locati on: [facility] So urce: EHR Chron ic: N Practic e ID: 0001 Bill able Time: 11:00:00 AM Radha Dela Cruz [facility] 17:26:39 Osteopen ia [id number] Completed 201902/24/2021 Radhadusty Dela Cruz [facility] 17:26:49 Problem Notes None recorded. Procedures Surgical History Date Name Laterality Status Provider Name and Address Organization Details Recorded Time 01/11/20 Coronary Artery Bypass completed Wilda Worrell [facility] 12/29/2022 09:55:12 10/29/19 22 Date of Last Mammogram completed [facility] 01/07/2022 11:42:21 02/06/20 20 completed [facility] 02/24/2021 17:32:17 11/25/19 19 Date of Last Pap Smear completed [facility] 02/24/2021 17:31:21 04/12/19 18 procedure on foot completed [facility] 12/29/2022 09:56:20 04/12/19 15 fluoroscopy guided angioplasty of artery with contrast completed [facility] 12/29/2022 09:55:20 04/12/19 07 procedure on wrist completed [facility] 12/29/2022 09:54:47 04/12/19 06 Ovarian Cystectomy completed [facility] 12/29/2022 09:54:41 04/12/19 01 Total Hysterectomy completed [facility] 12/29/2022 09:31:41 Imaging Results Imaging Date Name Status LastModified by Organiz ation Details LastModified Time 02/06/2020 MAMMO, diagnostic, digital, bilateral completed [address], [address], 02/07/2020 20:28:33 02/06/2020 DEXA, axial skeleton + vertebral fracture assessment completed [address], [address], 02/14/2020 12:05:18 02/12/2020 MAMMO, diagnostic, digital, bilateral completed [facility] [address] [place] [address], [address], 02/18/2020 18:34:55 11/26/2020 US, abdomen completed [facility] [address], [place], [address], 12/02/2020 13:07:49 10/28/2021 MAMMO, diagnostic, digital, bilateral completed [facility] [address], [place], [address], 10/31/2021 16:38:24 02/06/2022 DEXA, axial skeleton completed [facility] [address], [place], [address], 12/24/2022 09:30:42 Procedure Notes None recorded. Medical Equipment None Reported. Allergies Allergen ID Allergen Name Allergen Category Reaction Reaction Severity Criticality Documentation Date Start Date Code Code System Note Provider Name and Address Organization Details Recorded Time 2128 cefuroxim e Not available Not available Not available Not available 01/04/2020 2194 RxNorm Aure esqueda [facility] 0 09:36:02 2130 Substance with sulfonami de structure and antibacte rial mechanism of action (substanc e) medicatio n Not available Not available Not available 01/04/2020 54825 8003 SNOMED Aure esqueda, [facility] 0 09:36:07 Medications Name Sig Start Date Stop Date Status Note LastModified by Organization Details LastModified Time amoxicill in 500 mg capsule 02/24 completed Not Available Not Available Not Available latanopro st 0.005 % eye drops INSTILL 1 DROP IN RIGHT EYE TWICE DAILY active Not Available Not Available No t Available atorvasta tin 80 mg tablet TAKE 1 TABLET BY MOUTH EVERY DAY AT BEDTIME active Not Available Not Available No t Available prednison e 10 mg tablet TAKE 3 TABLETS BY MOUTH DAILY FOR 5 DAYS active Not Available Not Available No t Available doxycycli ne hyclate 100 mg capsule TAKE 1 CAPSULE BY MOUTH TWICE DAILY 12/29 completed Not Available Not Available Not Available nabumeton e 750 mg tablet 09/29 completed Not Available Not Available Not Available tizanidin e 2 mg tablet TAKE 1 TABLET BY MOUTH THREE TIMES DAILY NEEDED FOR MUSCLE SPASMS active Not Available Not Available No t Available clindamyc in HCl 300 mg capsule 02/24 completed Not Available Not Available Not Available azithromy vesna 250 mg tablet TK 2 TS PO ON DAY 1, THEN TK 1 T PO D FOR 4 DAYS active Not Available Not Available No t Available clonazepa m 0.5 mg tablet TAKE 1 TABLET BY MOUTH THREE TIMES DAILY NEEDED FOR ANXIETY 12/29 completed Not Available Not Available Not Available promethaz ine 6.25 mg-codein e 10 mg/5 mL syrup TAKE 5 ML BY MOUTH EVERY 6 HOURS NEEDED FOR 7 DAYS 09/29 completed Not Available Not Available Not Available clopidogr el 75 mg tablet TAKE 1 TABLET BY MOUTH EVERY MORNING active Not Available Not Available No t Available ciproflox acin 500 mg tablet 02/24 completed Not Available Not Available Not Available omeprazol e 40 mg capsule,d elayed release TAKE ONE CAPSULE BY MOUTH EVERY DAY 09/29 completed Not Available Not Available Not Available aspirin 81 mg tablet,de layed release TAKE 1 TABLET BY MOUTH EVERY MORNING active Not Available Not Available No t Available prednisol one acetate 1 % eye drops,romero pension SHAKE LIQUID AND INSTILL 1 DROP IN RIGHT EYE FOUR TIMES DAILY 07/26 completed Not Available Not Available Not Available Protonix 40 mg intraveno us solution infuse by intraven ous route every day 09/29 completed Prescrib ed Elsewher e: Yes Loca tion: [facility] odify By: cheryle vela DateTime : 11/23/19 18 01:00:00 PM Not Available Not Available Not Available pantopraz ole 40 mg tablet,de layed release TAKE 1 TABLET BY MOUTH TWICE DAILY active Not Available Not Available No t Available prednison e 50 mg tablet TAKE 1 TABLET BY MOUTH DAILY FOR 5 DAYS 01/06 completed Not Available Not Available Not Available raloxifen e 60 mg tablet TAKE 1 TABLET BY MOUTH EVERY DAY active Not Available Not Available No t Available mupirocin 2 % topical ointment APPLY SMALL AMOUNT TOPICALL Y TO THE AFFECTED AREA THREE TIMES DAILY 12/29 completed Not Available Not Available Not Available metoprolo l succinate ER 25 mg tablet,ex tended release 24 hr TAKE 1 TABLET BY MOUTH EVERY MORNING active Not Available Not Available No t Available albuterol sulfate HFA 90 mcg/actua tion aerosol inhaler INHALE 1 PUFF EVERY 4 HOURS NEEDED FOR SHORTNES S OF BREATH OR WHEEZING 07/26 completed Not Available Not Available Not Available Cipro 250 mg tablet take 1 tablet by oral route every 12 hours 11/24 completed Prescrib ed Elsewher e: No [facility] odify By: jerome Blanton r DateTime : 11/23/19 18 01:00:00 PM Not Available Not Available Not Available Lipitor 10 mg tablet take 1 tablet by oral route every day 10/19 completed Prescrib ed Elsewher e: Yes Loca tion: [facility] odify By: tiffany Blanton r DateTime : 03/01/20 15 08:30:00 AM Not Available Not Available Not Available amoxicill in 875 mg-potass ium clavulana te 125 mg tablet TAKE 1 TABLET BY MOUTH EVERY 12 HOURS FOR 10 DAYS 09/29 completed Not Available Not Available Not Available escitalop heavenly 10 mg tablet TAKE 1 TABLET BY MOUTH DAILY active Not Available Not Available No t Available ezetimibe 10 mg tablet 1 tablet every 24 hours by oral route. active Not Available Not Available No t Available rosuvasta tin 20 mg tablet TAKE 1 TABLET BY MOUTH DAILY 12/29 completed Not Available Not Available Not Available rosuvasta tin 40 mg tablet TAKE 1 TABLET BY MOUTH DAILY active Not Available Not Available No t Available Crestor 5 mg tablet take 1 tablet by oral route every day 09/29 completed Prescrib ed Elsewher e: Yes Loca tion: [facility] odify By: tiffany Blanton r DateTime : 10/20/19 17 08:30:00 AM Not Available Not Available Not Available bupropion HCl XL 150 mg 24 hr tablet, extended release TAKE 1 TABLET BY MOUTH EVERY MORNING active Not Available Not Available No t Available mesalamin e 1,000 mg rectal supposito ry INSERT 1 SUPPOSIT ORY RECTALLY EVERY DAY 09/29 completed Not Available Not Available Not Available Vitamin D active Not Available Not Louisa ilable Not Available mesalamin e 1.2 gram tablet,de layed release TAKE 4 TABLETS BY MOUTH EVERY DAY 01/07 completed Not Available Not Available Not Available Lovaza 1 gram capsule take 2 capsule by oral route 2 times every day 09/29 completed Prescrib olamide Harmon e: Yes Loca tion: Mayra gaxiola [facility] odify By: tiffany chavira DateTime : 03/01/20 08:30:00 AM Not Available Not Available Not Available Lovaza 02/24 completed Not Available Not Available Not Available estradiol 10 mcg vaginal tablet INSERT 1 TABLET VAGINALL Y 2 TIMES A WEEK 12/17 completed Not Available Not Available Not Available Imvexxy Starter Pack 10 mcg vaginal insert, dose pack INSERT 1 VAGINAL INSERT (10 MCG) BY VAGINAL ROUTE ONCE DAILY FOR 2 WEEKS THEN 1 INSERT (10 MCG) TWICE WEEKLY FOR DURATION OF USE 12/29 completed Not Available Not Available Not Available Imvexxy Maintenan ce Pack 10 mcg vaginal insert Insert 1 vaginal insert twice a week by vaginal route as directed for 30 days. active Not Available Not Available No t Available Fluad Quad [id number] (65yr up)(PF) 60 mcg (15 mcg x 4)/0.5mL IM syringe 02/24 completed Not Available Not Available Not Available Vitals Date Recorded Body height Body mass index (BMI) Body weight Provider Name and Address Organization Details Last Updated DateTime 09/29/2021 161.29 cm 28.2 kg/m2 78633.96 g Radha Dela Cruz [facility] 09/29/2021 09:54:37 Date Recorded Systolic blood pressure Diastolic blood pressure Provider Name and Address Organization Details Last Updated DateTime 09/29/2021 124 mm[Hg] 74 mm[Hg] Ivett Naidu, SU[facility]- [address], [place], [address], [facility] 09/29/2021 10:24:03 Date Recorded Body height Body mass index (BMI) Body weight Provider Name and Address Organization Details Last Updated DateTime 01/07/2022 161.29 cm 28.8 kg/m2 07983.74 g Radha Dela Cruz [facility] 01/07/2022 11:41:28 Date Recorded Systolic blood pressure Diastolic blood pressure Provider Name and Address Organization Details Last Updated DateTime 01/07/2022 128 mm[Hg] 74 mm[Hg] Ivett Naidu, [facility] [address], [place], [address], [facility] 01/07/2022 11:58:06 Date Recorded Body height Body mass index (BMI) Body weight Systolic blood pressure Diastolic blood pressure Provider Name and Address Organization Details Last Updated DateTime 12/29/2022 161.29 cm 30 kg/m2 71970.89 g 162 mm[Hg] 63 mm[Hg] Wilda Worrell [facility] 3 09:28:38 Date Recorded Systolic blood pressure Diastolic blood pressure Provider Name and Address Organization Details Last Updated DateTime 12/29/2022 124 mm[Hg] 80 mm[Hg] Ivett Nadiu, [facility] [address], [place], [address], [facility] 12/29/2022 15:35:32 Date Recorded Body height Body mass index (BMI) Body weight Systolic blood pressure Diastolic blood pressure Provider Name and Address Organization Details Last Updated DateTime 01/04/2020 165.1 cm 25.6 kg/m2 49193.22 g 116 mm[Hg] 77 mm[Hg] Aure Todd [facility] 0 09:50:23 Date Recorded Body height Body mass index (BMI) Body weight Systolic blood pressure Diastolic blood pressure Provider Name and Address Organization Details Last Updated DateTime 07/27/2023 161.29 cm 29.5 kg/m2 78292.11 g 146 mm[Hg] 74 mm[Hg] aRdha Edawrds [facility] 4 09:29:10 Social History Question Answer Notes LastModified by Organizat ion Details LastModified Time Tobacco Smoking Status Never Smoker Wilda esqueda, [facility] 12/29/2022 09:22:00 Do You Have An Advance Directive? No Information n ot available 01/07/2022 What Is Your Level Of Alcohol Consumption? Occasional Information not available 02/24/2021 Are You Blind Or Do You Have Difficulty Seeing? No Information n ot available 02/24/2021 What Is Your Level Of Caffeine Consumption? Occasional Information not available 02/24/2021 In The 14 Days Before Symptom Onset, Have You Had Close Contact With A Laboratory-confirm ed COVID-19 While That Case Was Ill? No Information n ot available 01/07/2022 In The 14 Days Before Symptom Onset, Have You Had Close Contact With A Person Who Is Under Investigation For COVID-19 While That Person Was Ill? No Information not available 01/07/2022 Have You Been To An Area Known To Be High Risk For COVID-19? No Information not available 01/07/2022 Are You Deaf Or Do You Have Serious Difficulty Hearing? No Information not available 02/24/2021 What Type Of Diet Are You Following? REGULAR Information n ot available 02/24/2021 What Is The Highest Grade Or Level Of School You Have Completed Or The Highest Degree You Have Received? [id number] Information not available 01/07/2022 What Is Your Occupation? Retired Information not available 01/07/2022 Do You Use Protection During Sex? No Information not available 01/07/2022 Do You Use Your Seat Belt Or Car Seat Routinely? Yes Information not available 02/24/2021 Do You Have Smoke And Carbon Monoxide Detectors In Your Home? Yes Information not available 02/24/2021 How Much Tobacco Do You Smoke? No Information not available 01/07/2022 Do You Feel Stressed (tense, Restless, Nervous, Or Anxious, Or Unable To Sleep At Night)? [id number] Information not available 02/24/2021 Do You Use Any Illicit Or Recreational Drugs? No Information not available 02/24/2021 Do You Use Sunscreen Routinely? Yes Information not available 02/24/2021 Have You Used IV Drugs? Yes Information not available 01/07/2022 Sex: Unknown Functional Status Question Answer Note LastModified by Organizat ion Details LastModified Time Do you have difficulty walking or climbing stairs? No [email or web address] Information not available 12/29/2022 Are you able to walk? YESWOREST Information not available 02/24/2021 Are you able to care for yourself? Yes [email or web address] Information not available 12/29/2022 Do you have difficulty dressing or bathing? No [email or web address] Information not available 12/29/2022 What is your exercise level? Moderate Information not available 02/24/2021 Mental Status None recorded. Family History Relationship Description Onset Age of this Age Resolved Age Notes LastModified by Organization Details LastModified Time Mother Carcinoma in situ of breast [email or web address] Not available 2023 09:20:39 Mother Suspected cervical cancer [email or web address] Not available 2023 09:20:39 Mother Diabetes mellitus [email or web address] Not available 12/29 09:29:14 Mother Disorder of cardiovascul ar system [email or web address] Not available 2023 09:20:39 Mother Recurrent ovarian cancer [email or web address] Not available 2023 09:20:39 Paternal Grandmother Carcinoma in situ of breast [email or web address] Not available 2023 09:20:39 Maternal Grandmother Diabetes mellitus [email or web address] Not available 12/29 09:29:14 Maternal Aunt Diabetes mellitus [email or web address] Not available 12/29 09:29:14 Father Disorder of cardiovascul ar system [email or web address] Not available 2023 09:20:39 Father Hypercholest erolemia [email or web address] Not available 12/29 09:29:14 Father Carcinoma in situ of lung [email or web address] Not available 09:20:39 Father Hypertensive disorder Not available 12/29 09:29:14 Maternal Grandfather Disorder of cardiovascul ar system Not available 2023 09:20:39 Paternal Grandfather Disorder of cardiovascul ar system [email or web address] Not available 2023 09:20:39 Paternal Uncle Family history of cancer of colon [email or web address] Not available 2023 09:20:39 Medical History Condition Response Allergies (Food, seasonal, environmental ) Y Other N Drug/Latex Allergies/Reactions Y Breast Cancer N Blood Transfusion N Lung Disease N Dermatologic Disorders N Defects or Inherited Disease N Breast Problem N Gestational Diabetes N Hematologic disorders N Anesthesia Complications N History of STI N Deep Vein Thrombosis N Polycystic ovary syndrome N Anxiety Disorder Y Autoimmune disease N Arthritis Y Polyps N Infertility N History of abnormal pap N Acid Reflux (GERD) Y Cancer N Varicosities N Stroke N Neurologic/Epilepsy N Endometriosis N High Cholesterol Y Headaches N Fibromyalgia N Kidney Disease N Heart Problems Y Thyroid Problems N Kidney or Bladder Problems Y GI Problems Y Eating Disorder N Anemia N Art (IVF or FET) N Psychiatric Illness N Ovarian Cancer N Diabetes N Pulmonary (TB, Asthma) N Hepatitis/Liver Disease N Eczema N Urinary Tract Infection N Asthma Y Trauma/Violence N Depression/ depression Y Heart Disease Y Pre-Eclampsia N Hypertension Y Osteoporosis Y Thrombophilias N Gynecological History Statement/Question Response Abnormal Pap N Date of Last Mammogram 10/28/2021 Date of LMP 04/12/1996 On BCP's at Conception? Y N Was last menstrual period normal Y STIs/STDs N HPV Vaccine N Duration of Flow (days) 5 02/06/2020 Current Control Method Hysterectom y Age at First Child 22 Sexually Active? Y Menses Monthly N Date of DEXA bone scan 02/06/2020 Age of first menstrual cycle 10 Date of Last Pap Smear 11/24/2018 Sexual Problems? Y LMP Approximate N Obstetrics History GPAL:G 2 P 2 0 0 2 Type Value Full Term 2 Living 2 Total 2 Past Encounters Encounter ID Performer Location Encounter Start Date Encounter Closed Date Diagnosis/Indication Diagnosis SNOMED-CT Code Diagnosis ICD10 Code Diagnosis Note [id number] [facility] [address] [address] 01/04/2020 09:27:33 01/04/2020 10:37:26 Screening for osteoporosis 599720213 Z13.820 Q78.2 Gynecologi c examination [id number] Z01.419 Take Calcium with Vitamin D 12-1500mg daily. Do monthly self breast exams. It is advised to get annual flu shot in the fall and she could obtain at [facility] or [facility]. If you haven't received the Tdap vaccine in the last 10 years you should obtain one as well. Have mammogram yearly, bone density every 2-3 years and colonoscop y every 5-10 years depending on findings and history. Engage in daily exercise of low impact aerobic exercise 45-60 minutes 4-5 times weekly. Avoid tobacco and illicit drugs as well as using moderation with alcohol intake less than 1-2 8 oz beverages daily. This lifestyle behavior pattern will lead to less health conditions and longer life span. If BMI greater than 25 weight watchers or dietary consult advised. Questions have been answered. Patient appears to understand instructio ns, but if you have any further questions call or respond to this email Atrophic vaginitis [id number] N95.2 She is currently on Vaginal estrogen 3x per week since her hysterecto my. Voices it does work but has noted a bit more dryness this year. Has been using Replens OTC but it is not helping. We discussed VCG s & use of vaginal vegetable moisturize r 2x/day along with estrogen therapy. RTO x 3mos Reduced libido 1938010 R 68.82 At upcoming f/u we will further discuss low libido & possible trial of Testostero ne cream to help low libido. Tenderness of breast [id number] 32075 N64.4 [id number] Ivett Naidu [facility] [address] [address] 01/07/2022 10:53:40 01/07/2022 14:12:18 Gynecologic examination [id number] Z01.419 Take Calcium with Vitamin D 12-1500mg daily. Do monthly self breast exams. It is advised to get annual flu shot in the fall and she could obtain at [facility] or [facility]. If you haven't received the Tdap vaccine in the last 10 years you should obtain one as well. Have mammogram yearly, bone density every 2-3 years and colonoscop y every 5-10 years depending on findings and history. Engage in daily exercise of low impact aerobic exercise 45-60 minutes 4-5 times weekly. Avoid tobacco and illicit drugs as well as using moderation with alcohol intake less than 1-2 8 oz beverages daily. This lifestyle behavior pattern will lead to less health conditions and longer life span. If BMI greater than 25 weight watchers or dietary consult advised. Questions have been answered. Patient appears to understand instructio ns, but if you have any further questions call or respond to this email Pap/hpv (Hysterect mouna for non-cancer indication s) USPSTF recommends against screening for cervical cancer in women older than 65yo, those who've had a hysterecto my for non-cancer indication s, & who have had adequate prior screening & are not otherwise at high risk for cervical cancer. STD Screen declinedGe netic Screen negColon Screen UTD PCPDexa Screen ordered (has scheduled) Routine Labs --going to see PCPMammo ordered Dyspareunia [id number] N94 .10 Doesn't feel vagifem tablet is as helpful as she would've expected.W khalida decided to try Imvexxy supps instead.Sa mirna give & okay to reach out and let us know what she thinks of this product. [id number] Ivett Naidu [facility] [address],[facility] [place] [address] 09/29/2021 09:28:36 09/29/2021 11:33:18 Atrophic vaginitis 71055351 N95.2 Doing well on this therapy.We agreed to continue at this time unless otherwise indicated. RF sent Postmenopa usal osteopenia [id number] M85.80 Updating imagingRF sent Pain of breast [id number] N64.4 N63.31 Z80.3 Breast exam warrants further diagnostic evaluation . Hypertriglyceridemia 302 [id number] E78.2 Suggested going to see PCP for updated visit to have her recent labs she has brought today evaluated & possibly new medication prescribed . Agreeable to plan.Will contact her PCP Skin lesion [id number] L98 .9 [id number] Ivett Naidu [facility] [address],[facility] [place] [address] 12/29/2022 09:10:45 12/29/2022 15:37:36 Atrophic vaginitis [id number] N95.2 Discussed r/b of imvexxy with current health hx.Imvexxy is one of the vag estrogen therapy that is not systemic in nature; instead very localized which still makes it appropriat e choice for current situation at hand in regards to r/b ratio and health hx. Discussed that there is an innate risk that applies to EVERYONE which understand ing verbalized .Using this for genitourin karla issues most of which have resolved or dramatical ly improved since using this therapy; most of which were greatly effecting her quality of life. Understand ing verbalized and agreeable to plan of care.Usual ly averages about 1 supp vag per week; most weeks. Time spent in visit is a total of 30 mins with at least 50% of visit consisting of counseling and review of plan of care. [id number] Ivett Naidu , [facility] [address] [address] 07/27/2023 09:18:02 07/27/2023 09:57:22 Pain of right breast [id number] N64.4 Right onlyTender in inner lower quadrant and upper outer quadrant extending into axillary.N o other abn findingsWi ll call to schedule Time spent in visit is a total of 21 mins with at least 50% of visit consisting of counseling and review of plan of care. Screening mammography 290690 Z12.31 Due for screening mammo since last completed 2021 Health Concerns Section Related Observation LastModified by Organization Detai ls LastModified Time None Recorded Concern Status LastModified by Organization Details LastModified Time None Recorded Advance Directives Directive N: Payers Encounter Date Sequence Insurance Name Policy Number Policy Starkey Covered Member ID Starkey Member ID Guarantor Name 01/04/2020 2 [employer] - FOR LIFE (MEDICARE SUPPLEMENT) [place] [id number] [place] 01/04/2020 1 [facility] (MEDICARE REPLACEMENT/A DVANTAGE - PPO) [id number] [place] [id number] [place] 09/29/2021 2 [employer] - FOR LIFE (MEDICARE SUPPLEMENT) [place] [id number] [place] 09/29/2021 1 [facility] (MEDICARE REPLACEMENT/A DVANTAGE - PPO) [id number] [place] [id number] [place] 01/07/2022 2 [employer] - FOR LIFE (MEDICARE SUPPLEMENT) [place] [id number] [place] 01/07/2022 1 [facility] (MEDICARE REPLACEMENT/A DVANTAGE - PPO) [id number] [place] [id number] [place] 12/29/2022 2 FOR LIFE () [place] [id number] [place] 12/29/2022 1 [employer] (MEDICARE REPLACEMENT PPO) [id number] [place] [id number] [place] 07/27/2023 2 [employer] - FOR LIFE (MEDICARE SUPPLEMENT) [place] [id number] [place] 07/27/2023 1 [employer] (MEDICARE REPLACEMENT PPO) [id number] [place] [id number] [place] Notes Date Note Type Note Provider Name and Address Organization Details Recorded Time 01/04/2020 text/html Annual GYNReport ed bypatient.Menstrual cycle:Normal menses Urinary symptoms:No hematuria; No incontinence Vulva:No genital lesion Vagina:Normal vaginal discharge Breast:No breast pain; No breast lump; No nipple discharge Sexual complaints:No sexual complaints; No pain during intercourse; Normal libido Menopausal Symptoms:No menopausal symptoms; Normal vaginal lubrication Psychological symptoms:No depression; No anxiety; No PMDD Preventive measures:Encourage self breast examination; Encourage regular exercise; Encourage no tobacco use; Encourage regular mammograms starting age 40; Needs to schedule mammogram; Needs to schedule colonoscopy; Needs bone scan Postmenopausal. Complaints of low libido & vaginal dryness. IRENA Peres-MELINDA [address], [place], [address], [facility] 01/04/2020 10:42:38 09/29/2021 text/html Here today for f /u Atrophic vaginitis. 1. Atrophic vagDoing exceptionally well on Vagifem.Has resolved issues & dryness along with coconut oil for daily moisturizing. 2. Bone HealthNeeds imaging order & RF of bone health medication 3. CholesterolHas updated labs 4. Right breast pain & noduleFam Hx of breast cancerHas markers placed to watch areas of this breastNoticed about 2mos ago that under arm pain started & feels it is getting worse.??If feels a new nodule in this area.Neg d/c, itching, skin changes, nipple d/c. IRENA Peres-MELINDA [address], [place], [address], [facility] 09/29/2021 10:31:03 01/07/2022 text/html Annual Gerentological Physiotherapist Post-MenopausalRepor moisés bypatient.Menopausal Symptoms:no menopausal symptoms;inadequacy of lubrication of vaginal mucosa Vaginal Bleeding:history of menopause having occurred; no history of post menopausal bleeding Urinary Symptoms:no hematuria; no incontinence; no nocturia; no urinary frequency Vulva:no genital lesion; no vulvar atrophy Vagina:normal vaginal discharge;atrophic vagina Breast:no breast lump; no nipple discharge; no breast pain Sexual Complaints:no sexual complaints Psychological Symptoms:no depression; no anxiety Preventive Measures:encourage regular mammograms starting age 40; encourage self breast examination; encourage regular exercise; encourage no tobacco use; needs to schedule mammogram; history of recent colonoscopy SHAUNA Peres [address], [place], [address], [facility] 01/07/2022 14:10:49 12/29/2022 text/html Here today to discuss imvexxy usage and current health Hx. Ivett Naidu [facility] [address], [place], [address], [facility] 12/29/2022 15:37:04 07/27/2023 text/html Breast PainRepor moisés bypatient.Location:r ight Onset/Timin-7 days Duration:rare Quality:aching Severity:mild Context:post menopause; fibrocystic breasts; history of 1 prior biopsies; Has marker in right breast for dense tissue Associated Symptoms:no fever; no chills; no skin redness; no nipple discharge; no sore nipples; breasts not full, sore, unable to express milk; no breast swelling; no arm pain; no arm swelling; no chest pain; no malaise; no breast lump KEISHA Peres [address], [place], [address], [facility] 07/27/2023 09:47:26 OBGyn Episode Ob Episode Information Episode Created Date Number of Fetuses Patient Bloodtype Patient rh Status Prepregnancy Weight lbs Domestic Partner Domestic Partner Phone Father Name Methods And Procedures Analyst Status 01/04/20 20 1 CLOSED Fetus Data First Name Last Name Admitted to NICU Weight (g) Sex Living Outcome Pediatric Complications Fetus ID Race Codes Race Delivery Type F Full Term [id number] Vaginal Delivery Luis Calculation Initial Luis Date Initial Exam Date Initial Exam Provider Initial Ultrasound Date Last Menstrual Period Date Ultra Sound Weeks Gestation 0 Eighteen To Twenty Week Luis Update Ultra Sound Date Fundal Height At Umbil Quickening Date Ultra Sound Latest Weeks Gestation Final Luis Confirmed By Final Luis Confirmed Date Final Luis Date Ultra Sound Latest Days Gestation 0 0 Menstrual History Last Menstrual Date Menses Monthly On Bcp Conception Prior Menses Frequency Hcg Plus Date Menarche Onset Age Delivery Information Delivery Date Delivery Type Labor Anesthesia Weeks Gestation Incision Type Labor Labor Length Hrs Delivered By Post Complications Tubal Sterilization Discharge Date Comments 2 Discharge Information Feeding Method Contraceptive Method Maternal HG B and HCT Levels Ob Episode Information Episode Created Date Number of Fetuses Patient Bloodtype Patient rh Status Prepregnancy Weight lbs Domestic Partner Domestic Partner Phone Father Name Methods And Procedures Analyst Status 01/04/20 20 1 CLOSED Fetus Data First Name Last Name Admitted to NICU Weight (g) Sex Living Outcome Pediatric Complications Fetus ID Race Codes Race Delivery Type F Full Term [id number] Vaginal Delivery Luis Calculation Initial Luis Date Initial Exam Date Initial Exam Provider Initial Ultrasound Date Last Menstrual Period Date Ultra Sound Weeks Gestation 0 Eighteen To Twenty Week Luis Update Ultra Sound Date Fundal Height At Umbil Quickening Date Ultra Sound Latest Weeks Gestation Final Luis Confirmed By Final Luis Confirmed Date Final Luis Date Ultra Sound Latest Days Gestation 0 0 Menstrual History Last Menstrual Date Menses Monthly On Bcp Conception Prior Menses Frequency Hcg Plus Date Menarche Onset Age Delivery Information Delivery Date Delivery Type Labor Anesthesia Weeks Gestation Incision Type Labor Labor Length Hrs Delivered By Post Complications Tubal Sterilization Discharge Date Comments 0 Discharge Information Feeding Method Contraceptive Method Maternal HG B and HCT Levels
--- OUTSIDE RECORDS SUMMARY | 2024-08-18 00:29 | XMS_ITS | Clinical Summary ---
Author Organization [facility] Address [address] [place] [address] Care Team Providers Care Test Development Engineer Name Role Phone Bossman Martinez MD Primary Care Provider [phone] Allergies Active Allergy Reactions Criticality Noted Date Comments Cefuroxime Diarrhea 04/22/2020 C-diff that required hospitalization x2 Medications raloxifene 60 MG tablet Take 60 mg by mouth daily. Active rosuvastatin 20 MG tablet Take 20 mg by mouth nightly at bedtime. Active estradiol 0.1 MG/GM vaginal cream Place vaginally 3 (three) times a week. Active cholecalciferol (VITAMIN D3) 125 MCG (5000 UT) Tab Take 5,000 Units by mouth daily. Active probiotic capsule Take 1 capsule by mouth 3 (three) times daily with meals. Active omeprazole 40 MG capsule Take 40 mg by mouth daily. Active omega-3 acid (LOVAZA) 1 GM capsule Take 4 g by mouth daily. Active mesalamine EC 1.2 g Tab EC tablet Take 4.8 g by mouth daily. with food Active predniSONE 10 mg tablet Active Immunizations Immunization Administration Dates Next Due PFIZER COVID-19 (ORIGINAL FO RMULATION, PURPLE CAP) mRNA, LNP-S, PF, 30 MCG/0.3 ML DOSE 06/15/2020,05/24/2020 Family History Medical History Relation Comments Heart Disease Father Lung Cancer Father Breast Cancer Mother Diabetes Mother Heart Disease Mother Ovarian Cancer Mother Colon Cancer Paternal Uncle Relation Status Comments Father Mother Paternal Uncle Social History Tobacco Use Types Packs/Day Years Used Date Smoking Tobacco: Never Smokeless Tobacco: Never Alcohol Use Standard Drinks/Week Comments Not Currently 0 (1 standard drink = 0.6 oz pur e alcohol) occaisionally/social AUDIT-C Answer Date Recorded Q1: How often do you have a drink containing alc ohol? Never 04/22/2020 Average Number of Drinks Not on file 021 Frequency of Binge Drinking Not on file 04/12 Comments No Sex and Gender Information Value Date Recorded Sex Assigned at Not on file Legal Sex Female 5:52 PM WOMEN'S LACROSSE COACH Gender Identity Not on file Sexual Orientation Not on file Last Filed Vital Signs Vital Sign Reading Time Taken Comments Blood Pressure 148/79 10/16/2020 1:25 PM CDT Pulse 74 10/16/2020 1:25 PM CDT Temperature 36.4 C (97.6 F) 10/16/2020 1:15 PM CDT Respiratory Rate 18 10/16/2020 1:25 PM CDT Oxygen Saturation 97% 10/16/2020 1:25 PM CDT Inhaled Oxygen Concentration - - Weight 73.9 kg (163 lb) 10/04/2020 1:46 PM CDT Height 165.1 cm (5' 5 ) 10/04/2020 1:46 PM CDT Body Mass Index 27.12 10/04/2020 1:46 PM CDT Plan of Treatment Health Maintenance Due Date Last Done Comments Hepatitis C 12/28/1971 DTaP, Tdap and Td Vaccines ( 1 - Tdap) 1972 Mammogram Screening 1993 Pneumococcal Vaccine: 50+ Years (1 of 1 - PCV) 12/28/2003 Zoster Vaccines (2 of 3) 07/01/2012 05/06/2012 Annual Medicare Wellness Visit 2018 Dexa Scan (General) 2018 COVID-19 Vaccine (3 - 2023-2 5 season) 2023 06/15/2020, 05/24/2020 RSV Immunization or 60+ Years (1 - 1-dose 75+ series) 2028 Colorectal Cancer Screening Colonoscopy (10 Years) 04/30/2030 04/30/2020, 04/30/2020, 04/30/2020 Meningococcal B Vaccine Aged Out No l onger eligible based on patient's age to complete this topic Meningococcal Vaccine Aged Out No denisse jakub eligible based on patient's age to complete this topic RSV Immunizations Under 20 Months Aged Out No longer eligible b ased on patient's age to complete this topic Medical Devices Implanted Type Area Chemical Tank Worker Device Identifier Shelf Expiration Date Model / Serial / Lot Clamp Clamp Description:FROM WRIST TO FO REARM Plate Plate Description:FROM WRIST TO FO REARM Procedures Procedure Name Priority Date/Time Associated Diagnosis Comments COLONOSCOPY Routine 04/30/2020 9:25 AM WOMEN'S LACROSSE COACH from Last 3 Months or Most Recently Relevant to Health Maintenance Results * Colonoscopy (04/30/2020 9:25 AM WOMEN'S LACROSSE COACH) Narrative Elia Hood MD - 04/30/2020 9:25 AM WOMEN'S LACROSSE COACH Elia Hood MD 05/13/2020 10:20 AM KRISTAL NEGRON MD COLONOSCOPY INDICATION: Rectal bleeding x1 month associated with abdominal pain and change in bowel pattern. POST-OP: 1. 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 2. Random biopsies obtained throughout the colon container #1 rectal biopsies container #2 SEDATION: Per Anesthesia PREP: Good. With the patient in the left lateral decubitus position, the Olympus [id number] colonoscope was introduced into the rectum and advanced easily to the Terminal Ileum/cecum identified by ileocecal valve, appendiceal orifice and cecal strap. Careful inspection of the mucosa was made upon insertion and withdrawal of the endoscope. FINDINGS: Terminal ileum: distal 5 cm normal. Cecum, ascending colon, transverse colon, descending colon, sigmoid colon was normal and rectum ulcerative proctitis in the distal 6 cm And a biopsy obtained in the colon container #1 rectal biopsies container #2 No complications, blood loss or implants. ASSESSMENT AND PLAN: Rectal bleeding and altered bowel habits secondary to ulcerative proctitis: - Colonoscopy approximately [address] Sacha slater - Initiate treatment with Rowasa suppositories 1000 mg per rectum daily - Follow-up biopsies - RTO 1-2 weeks - If no improvement add oral mesalamine and consider short course of steroids Thank you for allowing me to care for your patient. Patient will follow-up in office in 1 to 2 weeks Kristal Negron M.D. us Kristal Negron MD GI PROCEDURE ORDERA BLES Edited Result - Final from Last 3 Months or Most Recently Relevant to Health Maintenance Insurance MED REPLACE [facility] MEDICARE HUMAN Care Teams Test Development Engineer Relationship Specialty Start Date End Date Bossman Martinez MD [address] [address] PCP - General FAMILY PRACTICE 04/25/20
--- OUTSIDE RECORDS SUMMARY | 2024-08-18 00:29 | XMS_ITS | Clinical Summary ---
Author Organization [facility] Address [address] [place] [address] Care Team Providers Care Parks Worker Name Role Phone Bossman Martinez MD Primary Care Provider [phone] Source Comments [facility]non-owned Affiliates and Associated Physician Practices is amultiple site organization consisting of ambulatory clinics and hospital sitesin [place], [place], [place] and [place]. This disclosure is being madepursuant to the Care Everywhere program and may not contain all information available regarding this patient. Last updated 17.[facility] Allergies Active Allergy Reactions Criticality Noted Date Comments Cefuroxime Other 12/06/2018 Ended up in hospital with C DIFF Medications * Be aware that medications may not be up to date on this document. Alwaysverify current medications with the patient. rosuvastatin (CRESTOR) 10 MG tablet Take 10 mg by mouth once daily Active Vgtow-1-nugv Ethyl Esters (LOVAZA PO) Active Estradiol (VAGIFEM VA) Active raloxifene (EVISTA) 60 MG tablet Take 60 mg by mouth once daily Active Cholecalciferol (D3 ADULT PO) Active Pantoprazole Sodium (PROTONIX PO) Active Social History Tobacco Use Types Packs/Day Years Used Date Smoking Tobacco: Never Smokeless Tobacco: Never Comments No Sex and Gender Information Value Date Recorded Sex Assigned at Not on file Legal Sex Female 9:38 AM CDT Gender Identity Not on file Sexual Orientation Not on file Last Filed Vital Signs Vital Sign Reading Time Taken Comments Blood Pressure 136/76 12/06/2018 2:18 PM CDT Pulse 83 12/06/2018 2:18 PM CDT Temperature 36.9 C (98.5 F) 12/06/2018 2:18 PM CDT Respiratory Rate 16 12/06/2018 2:18 PM CDT Oxygen Saturation 97% 12/06/2018 2:18 PM CDT Inhaled Oxygen Concentration - - Weight 71.7 kg (158 lb) 12/06/2018 2:18 PM CDT Height 165.1 cm (5' 5 ) 12/06/2018 2:18 PM CDT Body Mass Index 26.29 12/06/2018 2:18 PM CDT Plan of Treatment Health Maintenance Due Date Last Done Comments BONE DENSITY TESTING 1955 COLOGUARD (AGES 45-75) - COL ON CA SCREENING 1955 COLON MONITORING 1953 COLONOSCOPY - COLON CA SCREENING 1953 CT COLONOGRAPHY - COLON CA SCREENING 1953 Colorectal Cancer Screening 1953 FIT - COLON CA SCREENING 1953 FLEX SIG - COLON CA SCREENING 1955 MAMMOGRAM 1953 HEPATITIS C SCREENING 12/23/1971 DTAP/TDAP/TD VACCINES (1 - Tdap) 1972 PNEUMOCOCCAL VACCINE 50+ (1 of 1 - PCV) 12/28/2003 ZOSTER VACCINE (1 of 2) 12/28/2003 SCREENING FOR DIABETES 12/06/2018 COVID-19 VACCINE (4 - 2023-2 5 season) 2023 01/15/2021, 06/15/2020, 05/24/2020 DEPRESSION SCREENING 04/12/2024 INFLUENZA VACCINE (Season Ended) 2024 02/05/2021, 01/16/2020, 03/11/2012 Respiratory Syncytial Virus (RSV) Vaccine Pt: or over 60 yrs (1 - 1-dose 75+ series) 2028 HEPATITIS B VACCINE Aged Out No longe r eligible based on patient's age to complete this topic HIB VACCINE Aged Out No longer eligi ble based on patient's age to complete this topic HPV VACCINE Aged Out No longer eligi ble based on patient's age to complete this topic MENINGOCOCCAL (Group B) VACCINE SHARED DECISION-MAKING Aged Out No longer eligible based on patient's age to complete this topic MENINGOCOCCAL GROUPS A/C/Y/W VACCINE Aged Out No longer eligible b ased on patient's age to complete this topic Insurance [facility] MANAGED MEDICARE ADV Care Teams Parks Worker Relationship Specialty Start Date End Date Bossman Martinez MD [address] [place] [address] PCP - General Family Medicine 12/06/18
--- OUTSIDE RECORDS SUMMARY | 2024-08-18 00:29 | XMS_ITS | Encounter Summary ---
Author Organization [facility] Address [facility] [place] [address] Care Team Providers Care Shop Technician Name Role Phone Bossman Martinez MD Primary Care Provider Encounter Details Date Type Department Care Team (Late st Contact Info) Description 04/27/2020 Prep for Procedure [facility] [place] [address] Josue Negron MD [address] [id number] Social History Tobacco Use Types Packs/Day Years Used Date Smoking Tobacco: Never Smokeless Tobacco: Never Alcohol Use Standard Drinks/Week Comments Not Currently 0 (1 standard drink = 0.6 oz pur e alcohol) HOLIDAYS AUDIT-C Answer Date Recorded Q1: How often do you have a drink containing alc ohol? Never 04/22/2020 Average Number of Drinks Not on file 021 Frequency of Binge Drinking Not on file 04/12 Comments No Sex and Gender Information Value Date Recorded Sex Assigned at Not on file Legal Sex Female 5:52 PM FOLLOW UP MANAGER Gender Identity Not on file Sexual Orientation Not on file COVID-19 Exposure Response Date Recorded In the last month, have you been in contact with someone who was confirmed or suspected to have Coronavirus / COVID-19? No / Unsure 04/30/2020 7:50 AM FOLLOW UP MANAGER documented as of this encounter Plan of Treatment Not on file documented as of this encounter Results * PRE-SURGICAL/PRE-PROCEDURE CORONAVIRUS (COVID 19) (04/27/2020 10:36 AM FOLLOW UP MANAGER) CORONAVIRUS SARS COV 2 PCR (RESP) NOT DETECTED NOT DETECTED 04/28/2020 12:51 PM FOLLOW UP MANAGER [facility] Comment: A Not Detected (negative) test result for this test means that SARS- CoV-2 RNA was not present in the specimen above the limit of detection. A negative result does not rule out the possibility of COVID-19 and should not be used as the sole basis for treatment or patient management decisions. If COVID-19 is still suspected, based on exposure history together with other clinical findings, re-testing should be considered in consultation with public health authorities. Laboratory test results should always be considered in the context of clinical observations and epidemiological data in making a final diagnosis and patient management decisions. Please review the Fact Sheets and FDA authorized labeling available for health care providers and patients using the following websites: https://www.[employer].com/home/Covid-19/HCP/[employer]/fact- sheet.html https://www.[employer]/home/Covid-19/Patients/ [employer]/fact-sheet.html This test has been authorized by the FDA under an Emergency Use Authorization (EUA) for use by authorized laboratories. Due to the current public health emergency, [employer] is receiving a high volume of samples from a wide variety of swabs and media for COVID-19 testing. In order to serve patients during this public health crisis, samples from appropriate clinical sources are being tested. Negative test results derived from specimens received in non-commercially manufactured viral collection and transport media, or in media and sample collection kits not yet authorized by FDA for COVID-19 testing should be cautiously evaluated and the patient potentially subjected to extra precautions such as additional clinical monitoring, including collection of an additional specimen. Methodology: Nucleic Acid Amplification Test (NAAT) includes RT-PCR or TMA Additional information about COVID-19 can be found at the [employer] website: www.[employer]/Covid19. Test performed at [facility] [address] [place] [address] Director: BRIANA FERNANDEZ DO,MPH FIRST TEST YES 04/27/2020 10:42 AM FOLLOW UP MANAGER [facility] EMPLOYED IN HEALTHCARE NO 04/27/2020 10:42 AM FOLLOW UP MANAGER [facility] SYMPTOMATIC DEFINED BY CDC NO 04/27/2020 10:42 AM FOLLOW UP MANAGER [facility] DATE OF SYMPTOM ONSET NO 04/27/2020 11:20 AM [facility] HOSPITALIZATION STATUS NO 04/27/2020 10:42 AM FOLLOW UP MANAGER [facility] PATIENT IN ICU NO 04/27/2020 10:42 AM [facility] RESIDENT OF [facility] NO 04/27/2020 10:42 AM FOLLOW UP MANAGER [facility] NO 04/27/2020 11:20 AM [facility] PATIENT'S RACE WHITE OR 04/27/2020 10:42 AM [facility] ETHNICITY NONHISPANIC 04/27/2020 10:42 AM [facility] SOURCE (QST) NASOPHARYNGEAL SWAB 04/27/2020 10:42 AM [facility] NASOPHARYNGEAL SWAB / Unknown 04/27/2020 10:36 AM FOLLOW UP MANAGER us Josue Negron MD MICROBIOLOGY - GENE RAL ORDERABLES Final Result [facility] [address] [place] [address], [place] [phone] [facility] [address] [place] [address], documented in this encounter Visit Diagnoses Diagnosis Hematochezia- Primary Blood in stool documented in this encounter Additional Health Concerns Infection Onset Date Last Indicated Resolved Time COVID-19 Rule Out 04/27/2020 04/27/2020 04/28/2020 12:52 PM FOLLOW UP MANAGER documented as of this encounter Care Teams Shop Technician Relationship Specialty Start Date End Date Bossman Martinez MD [address] [place], [place] [id number] PCP - General FAMILY PRACTICE 04/25/20 documented as of this encounter
--- OUTSIDE RECORDS SUMMARY | 2024-08-18 00:29 | XMS_ITS | Clinical Summary ---
Author Organization [facility] Address [address] [place] [address] Phone Care Team Providers Care Gliding Pilot Instructor Name Role Phone Unavailable Primary Care Provider Unavailabl e Social History Tobacco Use Types Packs/Day Years Used Date Smoking Tobacco: Never Assessed Comments Unknown Sex and Gender Information Value Date Recorded Sex Assigned at Not on file Legal Sex Female 5:14 PM CDT Gender Identity Not on file Sexual Orientation Not on file Plan of Treatment Not on file Insurance [facility] MEDICARE C [employer] on file
--- OUTSIDE RECORDS SUMMARY | 2024-08-18 00:29 | XMS_ITS | CONTINUITY OF CARE DOCUMENT ---
Author Name catracho hayden Address Unknown Organization [facility] Address [address] [place] [address] Phone [phone] Care Team Providers Care Weigh Tank Operator Name Role Phone CURLY CAGLE, SRIRAM F Unavailable [phone] CURLY CAGLE, SRIRAM F Unavailable [phone] INSURANCE PROVID[employer] Payer name Policy type / Coverage type [employer] party ID ALFONZO DRUMMOND [id number] [employer] OPEN ACCESS Other [id number]
[2024-08-18 07:49] LABS: Basophils Percent Auto 0.5 % (0.2-1.2); Eosinophils Absolute Auto 0.2 K/mm3 (0-0.3); Eosinophils Percent Auto 2.9 % (0-4.4); Hematocrit 40.6 % (37.0-47.0); Hemoglobin 13.3 g/dL (12.0-15.0); Immature Granulocyte Absolute 0.02 K/mm3 (0.00-0.031); Immature Granulocyte Percent A 0.3 % (0-0.5); Lymphocytes Absolute Auto 1.85 K/mm3 (0.9-3.2); Mean Corpuscular HGB Conc 32.8 g/dl (32-36); Mean Corpuscular Hemoglobin 29.6 pg (26-34); Mean Corpuscular Volume 90.2 fl (80-100); Mean Platelet Volume 9.5 fl (7.4-10.4); Monocytes Absolute Auto 0.6 K/mm3 (0.1-0.6); Monocytes Percent Auto 8.5 % (2.6-8.5); Neutrophils Percent Auto 59.8 % (45.5-73.1); Platelet Count Result 261 k/mm3 (150-375); Red Cell Distribution Width 12.3 % (11.5-14.5); White Blood Count 6.6 K/mm3 (4.5-10.0)
[2024-08-18 07:58] LABS: Anion Gap 10 mmol/L (4-12); Blood Urea Nitrogen 22 mg/dL (7-17); Calcium 9.2 mg/dL (8.4-10.2); Carbon Dioxide 25 mmol/L (22-30); Chloride 106 mmol/L (98-107); Estimated CRCL calculation 65 ml/min; Estimated Glomerular Filt Rate > 60; Glucose 93 mg/dL (65-110); Potassium 4.1 mmol/L (3.4-5.0); Sodium 141 mmol/L (137-145)
--- NOTE | 2024-08-18 09:10 | WPDHPUPDATE1 ---
History and Physical Update Update Date/Time: 08/18/24 09:10 History and Physical has been reviewed, including an updated exam of the patient. There are NO changes in the patient's condition. Risks, benefits, and alternatives have been discussed and questions answered. Patient agrees to proceed with procedure.
--- NOTE | 2024-08-18 09:10 | WPDMODSED ---
Moderate Sedation Note-Pt Data Patient Data Diagnosis: Coronary artery disease Present Complaint: Coronary artery disease Procedure to be performed/Plan: Coronary angiography, left heart cath, +/- PCI Allergies Allergy/AdvReac Type Severity Reaction Status Date / Time Sulfa (Sulfonamide Allergy Mild RASH Verified 08/18/24 07:33 Antibiotics) adhesive tape Allergy Unknown RASH Verified 08/18/24 07:33 cefuroxime Allergy Unknown Unknown Verified 08/18/24 07:33 Cephalosporins Allergy Unknown NAUSEA AND Verified 08/18/24 07:33 SEVERE DIARRHEA, C-DIF sulfamethizole Allergy Unknown Unknown Verified 08/18/24 07:33 trimethoprim Allergy Unknown Unknown Verified 08/18/24 07:33 doxycycline AdvReac Intermediate rash on Verified 08/18/24 07:33 face Home Medications ?Medication ?Instructions ?Recorded ?Confirmed ?Type raloxifene 60 mg tablet (Evista) 60 mg PO DAILY 05/16/19 08/17/24 History cholecalciferol (vitamin D3) 125 125 mcg PO DAILY 01/14/22 08/17/24 History mcg (5,000 unit) tablet (Vitamin D3) aspirin 81 mg tablet,delayed 81 mg PO QAM #30 tabs 01/16/22 08/18/24 Rx release Saccharomyces boulardii 250 mg 5,000 mmu cells PO DAILY 02/20/22 08/17/24 History capsule (Florastor) metoprolol succinate 25 mg 25 mg PO QAM 11/02/23 08/18/24 History tablet,extended release 24 hr (Toprol XL) pantoprazole 40 mg tablet,delayed 40 mg PO BID #180 tabs 11/02/23 08/17/24 Rx release (Protonix) escitalopram oxalate 10 mg tablet 10 mg PO DAILY #90 tabs 07/24/24 08/17/24 Rx ezetimibe 10 mg tablet (Zetia) 10 mg PO DAILY #90 tabs 07/24/24 08/18/24 Rx meloxicam 15 mg tablet 15 mg PO DAILY #30 tabs 07/24/24 08/17/24 Rx rosuvastatin 40 mg tablet (Crestor) 40 mg PO DAILY #90 tabs 07/24/24 08/18/24 Rx tizanidine 2 mg tablet 2 mg PO TID PRN muscle spasticity 07/24/24 08/17/24 Rx #20 tabs Sedation/Anesthesia: No previous sedation/anesthesia problems (including family history). [facility] Past Medical History Medical History BMI greater than 30 Family history of coronary artery disease History of colitis Elevated blood pressure reading without diagnosis of hypertension Exposure to COVID-19 virus Hyperlipidemia Family History Family History Grandparent Diabetes mellitus Family history of coronary artery disease Cerebrovascular accident Pulmonary disease Mother Family history of heart disease in male family member before age 55 Family history of malignant neoplasm of ovary Diabetes mellitus Acute myocardial infarction Family history of diabetes mellitus in first degree relative Family history of malignant neoplasm of breast in first degree relative Family history of congestive heart failure High cholesterol Hypertension Pulmonary disease Father Family history of heart disease in male family member before age 55 Acute myocardial infarction Family history of lung cancer Hx of CABG High cholesterol Hypertension Pulmonary disease Sibling Family history of malignant neoplasm of breast in first degree relative, Onset Age: 30 Other Carcinoma of colon Social History Social History Smoking status: Never smoker Alcohol intake: never Substance use: never Substance use type: does not use Lack of Transportation: No Lack of Food: Never True Current Housing: I Have Housing Concerned About Future Housing: No Difficulty Paying Gas/Electric Bills: No Difficulty Paying for Meds: No Currently Unemployed: No Difficulty w/ Childcare or Family Care: No Living arrangements: with family Spiritual care concerns: No Mod Sed Physical Exam Physical Exam Pre Procedural Exam: Normal: Appearance, Lungs, Heart Rate, Heart Rhythm, Neuro Exam, Extremities and Skin Hours since solid foods: 12 Hours since liquid intake: 8 Mallampati Classification: class III Internal Medicine - PN: Obj Da Vital Signs Vital Signs: Vital Signs - 24 hr 08/18/24 07:36 Temperature 36.6 C Pulse Rate 71 Respiratory Rate 16 Blood Pressure 140/75 Pulse Oximetry 97 Oxygen Delivery Room Air Labs 08/18/24 07:31 08/18/24 07:31 Labs: Laboratory Results - last 24 hr 08/18/24 07:31 WBC 6.6 RBC 4.50 Hgb 13.3 Hct 40.6 MCV 90.2 MCH 29.6 MCHC 32.8 RDW 12.3 Plt Count 261 MPV 9.5 Immature Gran % (Auto) 0.3 Neut % (Auto) 59.8 Lymph % (Auto) 28.0 Harnett % (Auto) 8.5 Eos % (Auto) 2.9 Baso % (Auto) 0.5 Lymph # (Auto) 1.85 Harnett # (Auto) 0.6 Eos # (Auto) 0.2 Baso # (Auto) 0.0 Abs Immat Gran (auto) 0.02 Absolute Neuts (auto) 4.0 Absolute Nucleated RBC 0.000 Nucleated RBC % 0.0 Sodium 141 Potassium 4.1 Chloride 106 Carbon Dioxide 25 Anion Gap 10 BUN 22 H Creatinine 0.71 Estim Creat Clear Calc 65 Estimated GFR > 60 Glucose 93 Calcium 9.2 ASA Classification/Sedation ASA Classification/Sedation ASA Class: III Emergent: No Risks: Risks, benefits and alternatives explained and patient/family accepted plan for sedation. Patient re-evaluated immediately prior to sedation.
--- NOTE | 2024-08-18 10:00 | P.PCNCC_ITS ---
Cardiac Cath Procedure Note Date of procedure:: 08/18/24 Performing physician:: CATHETERIZATION LABORATORY REPORT Procedure Date: 08/18/2024 Billing Machine Operator: Carlyn Buenrostro M.D., [facility]? Referring Physician: Ismael Wong M.D.? Anesthesia: Versed and Fentanyl were ordered and given in my presence at 09:16, procedure ended at 09:52. Supervision of nurse monitored moderate sedation with Versed and Fentanyl was provided for 36 minutes. Total of Versed 1mg and Fentanyl 75mcg were administered by the Software Product Manager RN Jackie Forman. Pre-op Diagnosis: Coronary artery disease Post-op Diagnosis: 1. Patent stent in the proximal LAD. Moderate mid RCA disease. Negative for ischemia by IFR of 0.95. 2. Elevated left ventricular end-diastolic pressure of 21mmHg Procedure(s): 1. Moderate sedation 2. Ultrasound-guided access of the right common femoral artery 3. Coronary angiography 4. Left heart cath 5. IFR of the RCA 6. Angioseal closure of the right common femoral artery Access Site: Right common femoral artery Brief History and Clinical Indications: Patient is a 68 year old female with CAD s/p prior PCI who is referred for [facility] for angina. All risks, benefits and alternatives to left heart catheterization with or without percutaneous coronary intervention was discussed at length with the patient. Risk of complications including but not limited to bleeding, infection, arrhythmia, stroke, worsening kidney function, blood loss, groin hematoma, limb loss, emergency coronary artery bypass grafting, and even were discussed with the patient and all questions were answered. The patient understood and wished to proceed. Time out called, patient name, date of , medical record number, allergies, procedure performed, identify Billing Machine Operator, patient and staff member concurred with accurate data, procedure carried on. Findings: LEFT HEART CATHETERIZATION FINDINGS: 1. Left main: The left main coronary artery is widely patent without any significant obstructive disease. 2. Left anterior descending: Patent stent in the proximal LAD. The mid-distal portion has mild 40-50% stenosis. 3. Ramus: Small caliber vessel. There is mild ostial disease. 4. Left circumflex: The left circumflex artery and the main marginal branch has mild diffuse disease without any significant obstructive angiographic disease. 5. Right coronary artery: The RCA is the dominant vessel. The proximal RCA has mild diffuse disease. The mid portion has a moderate 50-60% stenosis. 6. Left ventricle: A. End-diastolic pressure 21 mmHg. B. LV gram deferred. C. No significant gradient across aortic valve on catheter pullback. Description of Procedure: Informed consent signed and placed in the chart. Patient transferred to laborer brooder farm room. Prepped and draped in usual sterile fashion. 2% lidocaine in right groin area. Micropuncture needle used to access right common femoral artery with Seldinger technique under fluoroscopic and ultrasound guidance. J wire advanced, micropuncture cannula placed. Right iliofemoral angiogram performed, access confirmed and micropuncture cannula exchanged for 6-FR sheath. 5F FR 4 diagnostic catheter engaged Right Coronary Artery. 5F FL 4 diagnostic catheter engaged Left Main Coronary Artery. 5F Pigtail diagnostic catheter crossed aortic valve to obtain LVEDP, LV angiogram deferred. Multiple orthogonal angiogram obtained and reviewed. We decided to proceed with IFR of the RCA stenosis. Angiomax was used for anticoagulation. 6F 3DRC guide catheter was used to intubate the RCA. Intracoronary NTG 300 mcg was administered 0.014 IFR coronary wire was advanced into the vessel, calibrated, and then advanced distal to the lesion in the distal RCA. IFR was 0.95. (Negative, pathological is <0.89). IFR wire removed. Follow-up angiograms showed no angiographic complications. Coronary wire and guide-catheter were removed Hemostasis was achieved by 6F Angioseal. Disposition: Home Plan: The patient will be monitored in the recovery area. Discharge home after post cath bed rest is completed. The above findings were discussed with the referring physician. Continue aggressive medical therapy and risk factor modification. ? Carlyn Buenrostro M.D. Interventional Cardiology
== END 2024-08-18 13:12 | disposition home or self-care (01) ==
PROVIDERS: PCP Family Medicine; Visit Provider Internal Medicine
PROC: 4A023N7 Measurement of Cardiac Sampling and Pressure, Left Heart, Percutaneous Approach (ICD-10-PCS; CPT 93452; principal; 2024-08-18 08:30)
PROC: 4A033BC Measurement of Arterial Pressure, Coronary, Percutaneous Approach (ICD-10-PCS; CPT 93571; 2024-08-18 08:30)
DX: I25.110 Atherosclerotic heart disease of native coronary artery with unstable angina pectoris (principal); E78.2 Mixed hyperlipidemia; I35.1 Nonrheumatic aortic (valve) insufficiency; E03.9 Hypothyroidism, unspecified; I11.9 Hypertensive heart disease without heart failure; K21.9 Gastro-esophageal reflux disease without esophagitis; F41.9 Anxiety disorder, unspecified; M81.0 Age-related osteoporosis without current pathological fracture; Z79.82 Long term (current) use of aspirin; Z79.810 Long term (current) use of selective estrogen receptor modulators (SERMs); Z98.890 Other specified postprocedural states; Z87.19 Personal history of other diseases of the digestive system; Z80.3 Family history of malignant neoplasm of breast; Z80.41 Family history of malignant neoplasm of ovary; Z80.1 Family history of malignant neoplasm of trachea, bronchus and lung; Z80.0 Family history of malignant neoplasm of digestive organs; Z82.49 Family history of ischemic heart disease and other diseases of the circulatory system
CPT/HCPCS: 36415; 80048; 85025; 93458; 93571; C1760; C1769; C1887; C1894; G0269; J0583; J1644; J2003; J2250; J2305; J3010; J7040

== ENCOUNTER 2024-09-14 14:13 | Emergency (ER) | payer MEDICARE, OTHER, SELFPAY ==
--- NOTE | 2024-09-14 14:20 | ED_ITS ---
HPI - General Adult General Chief complaint: Allergic Reaction Stated complaint: allergic reaction Time Seen by Provider: 09/14/24 14:28 Source: patient, RN notes reviewed and old records reviewed Mode of arrival: ambulatory Limitations: no limitations History of Present Illness HPI narrative: 68 female presents to the [facility] with concerns of having a possible allergic reaction. Patient states that at 9:00 a.m. when she was at physical therapy discussing her walking with a cane. Patient states that it felt like her throat was becoming tight, strep lip swelled, trouble swallowing. At 1:00pm. she made it home, took a Benadryl and Dolly. Symptoms have improved Patient states that since she had her heart attack a couple months ago that whenever she becomes anxious or sad she breaks out in a rash, feels like her tongue or lip swelling. Patient extremely upset when she is talking about walking with a cane. Patient is requesting a shot to ?fix this. ? Discussed that if we did a shot of prednisone due to underlying anxiety issues that it probably will get worse. To continue using [id number] products, trying relaxation but most importantly is following up with her primary care provider. Related Data Home Medications ?Medication ?Instructions ?Recorded ?Confirmed ?Last Taken ?Type raloxifene 60 mg tablet (Evista) 60 mg PO DAILY 05/16/19 09/14/24 08/17/24 History cholecalciferol (vitamin D3) 125 125 mcg PO DAILY 01/14/22 09/14/24 08/17/24 History mcg (5,000 unit) tablet (Vitamin D3) Saccharomyces boulardii 250 mg 5,000 mmu cells PO DAILY 02/20/22 09/14/24 08/17/24 History capsule (Florastor) metoprolol succinate 25 mg 25 mg PO QAM 11/02/23 09/14/24 08/18/24 History tablet,extended release 24 hr (Toprol XL) Allergies Allergy/AdvReac Type Severity Reaction Status Date / Time Sulfa (Sulfonamide Allergy Mild RASH Verified 09/14/24 14:46 Antibiotics) adhesive tape Allergy Unknown RASH Verified 09/14/24 14:46 cefuroxime Allergy Unknown Unknown Verified 09/14/24 14:46 Cephalosporins Allergy Unknown NAUSEA AND Verified 09/14/24 14:46 SEVERE DIARRHEA, C-DIF sulfamethizole Allergy Unknown Unknown Verified 09/14/24 14:46 trimethoprim Allergy Unknown Unknown Verified 09/14/24 14:46 doxycycline AdvReac Intermediate rash on Verified 09/14/24 14:46 face Review of Systems Review of Systems: All systems reviewed & are unremarkable except as noted in HPI and below Constitutional: Constitutional: Reports as per HPI ENT: Reports as per HPI Cardiovascular: Cardiovascular: Reports no additional cardiovascular complaints, Denies chest pain and Denies dyspnea Respiratory: Respiratory: Reports no additional respiratory complaints, Denies chest congestion, Denies cough and Denies dyspnea Musculoskeletal: Musculoskeletal: Reports no additional musculoskeletal complaints Integumentary/Breasts: Skin/Breast: Reports as per HPI [facility] Past Medical History Medical History BMI greater than 30 Family history of coronary artery disease History of colitis Elevated blood pressure reading without diagnosis of hypertension Exposure to COVID-19 virus Hyperlipidemia Family History Family History Grandparent Diabetes mellitus Family history of coronary artery disease Cerebrovascular accident Pulmonary disease Mother Family history of heart disease in male family member before age 55 Family history of malignant neoplasm of ovary Diabetes mellitus Acute myocardial infarction Family history of diabetes mellitus in first degree relative Family history of malignant neoplasm of breast in first degree relative Family history of congestive heart failure High cholesterol Hypertension Pulmonary disease Father Family history of heart disease in male family member before age 55 Acute myocardial infarction Family history of lung cancer Hx of CABG High cholesterol Hypertension Pulmonary disease Sibling Family history of malignant neoplasm of breast in first degree re lative, Onset Age: 30 Other Carcinoma of colon Social History Social History Smoking status: Never smoker Second hand tobacco smoke exposure: No Alcohol intake: never Drinks per week: 1 Substance use: never Substance use type: does not use Lack of Transportation: No Lack of Food: Never True Current Housing: I Have Housing Concerned About Future Housing: No Difficulty Paying Gas/Electric Bills: No Difficulty Paying for Meds: No Currently Unemployed: No Difficulty w/ Childcare or Family Care: No Living arrangements: with family Spiritual care concerns: No Comments At the time of my signature, I reviewed and agree with the nursing past medical, surgical, social, and family history. There is no relevant family history pertinent to the patient complaint. Exam Const: General: cooperative, healthy appearing, comfortable, no acute distress, well developed, alert and well nourished Nutritional Appearance: well nourished Orientation/consciousness: patient oriented x3 Limitations: no limitations HENMT: Head: normal to inspection Ears: hearing grossly normal bilaterally, external ears normal, TM's normal bilaterally, EAC's normal, mastoids normal and no periauricular adenopathy Face and sinus: normal facial exam Mouth: Yes Normal oral and palatal mucosa present, Yes lip normal, Yes tongue normal and Yes moist mucous membranes Throat: posterior oropharynx normal, uvula midline and no uvular edema Eyes: General: appearance normal, both eyes and all related structures Alignment and Position: alignment normal Neck: Neck: normal visual inspection, full ROM, no lymphadenopathy and no meningeal signs Chest: Chest palpation & inspection: normal inspection of the chest Resp: Effort & Inspection: normal respiratory effort and able to speak in complete sentences Auscultation: clear to auscultation bilaterally, no crack les, no rales, no rhonchi and no wheezes Cardio: Rate: regular rate Skin: General skin exam: normal color and no rashes or lesions noted Neuro: General: patient oriented x3, gait normal, moves all extremities and no meningeal signs Cognition (Neuro): normal cognition Speech: normal speech Gait exam (Neuro): Normal gait present Extrem: General: normal to inspection, full ROM, capillary refill normal and normal gait Psych: Appearance: grossly normal and well kempt Mental Status: mental status grossly normal Speech and movement: Normal speech and movement present and Clear speech present Affect: normal affect Attitude: cooperative Course Course Level of Care: Express Care Visit Vital Signs Vital signs: Vital Signs Temperature 99 F 09/14/24 14:26 Pulse Rate 78 09/14/24 14:26 Respiratory Rate 16 09/14/24 14:26 Blood Pressure 133/87 09/14/24 14:26 Pulse Oximetry 99 09/14/24 14:26 Temperature 99 F 09/14/24 14:26 Pulse Rate 78 09/14/24 14:26 Respiratory Rate 16 09/14/24 14:26 Blood Pressure 133/87 09/14/24 14:26 Pulse Oximetry 99 09/14/24 14:26 Reviewed Medical Decision Making MDM Narrative Medical decision making narrative: Patient sitting comfortably in exam room. Nontoxic, vitals stable. Patient in no acute distress Patient presents requesting a shot to prevent any future allergic reactions Discussed [id number] products. Discussed that a steroid shot or anything make make her symptoms worse. Discharge instructions reviewed with patient, as well as provided in writing per nursing staff. The instructions also include specific and strict return/GO TO THE ER as well as f/u information. All questions have been answered, and the patient deny any further questions with discharge and discharge plan. Some parts of this dictation were generated by voice recognition software and may contain typographical and/or grammatical inaccuracies. Differential Diagnosis Differential Diagnosis: Stress-induced you take area. Anxiety Medical Records Medical records reviewed: Yes I reviewed the external patient's medical records. Vital Signs Vital Signs: Vital Signs Temperature 99 F 09/14/24 14:26 Pulse Rate 78 09/14/24 14:26 Respiratory Rate 16 09/14/24 14:26 Blood Pressure 133/87 09/14/24 14:26 Pulse Oximetry 99 09/14/24 14:26 Temperature 99 F 09/14/24 14:26 Pulse Rate 78 09/14/24 14:26 Respiratory Rate 16 09/14/24 14:26 Blood Pressure 133/87 09/14/24 14:26 Pulse Oximetry 99 09/14/24 14:26 Reviewed Lab Data Lab results reviewed: Yes I reviewed the patient's lab results. Labs: Reviewed Critical Care Time Critical Care Time Critical Care Time: No Discharge Plan Discharge Clinical Impression: Anxiety, Hx of urticaria Patient Disposition: Home Condition: Stable Instructions: Antibiotic Form, Urticaria (ED) Additional Instructions: Take Dolly daily Take Benadryl per package instructions Follow-up with primary care provider within 1 week For new or worsening symptoms please go directly to the emergency room Patient Language: Vincentian Prescriptions: No Action raloxifene [Evista] 60 mg tablet 60 mg PO DAILY metoprolol succinate [Toprol XL] 25 mg tablet extended release 24 hr 25 mg PO QAM pantoprazole [Protonix] 40 mg tablet,delayed release (DR/EC) 40 mg PO BID Qty: 180 0RF tizanidine 2 mg tablet 2 mg PO TID PRN (Reason: muscle spasticity) Qty: 20 0RF meloxicam 15 mg tablet 15 mg PO DAILY Qty: 30 3RF escitalopram oxalate 10 mg tablet 10 mg PO DAILY Qty: 90 1RF ezetimibe [Zetia] 10 mg tablet 10 mg PO DAILY Qty: 90 0RF rosuvastatin [Crestor] 40 mg tablet 40 mg PO DAILY Qty: 90 3RF cholecalciferol (vitamin D3) [Vitamin D3] 125 mcg (5,000 unit) Tablet 125 mcg PO DAILY aspirin 81 mg Tablet,Delayed Release (Dr/Ec) 81 mg PO QAM Qty: 30 0RF Saccharomyces boulardii [Florastor] 250 mg Capsule 5,000 mmu cells PO DAILY Follow-up/Referrals: Bossman Martinez MD [Primary Care Provider] - [facility] Time of Disposition: 14:51
[2024-09-14 14:26] VITALS: BP 133/87; PULSE 78; RESP 16; TEMP 37.2; O2SAT 99
== END 2024-09-14 14:57 | disposition home or self-care (01) ==
PROVIDERS: Emergency Provider Nurse Practitioner; PCP Family Medicine
DX: F41.9 Anxiety disorder, unspecified (principal); L50.9 Urticaria, unspecified; E78.5 Hyperlipidemia, unspecified
CPT/HCPCS: 99211; G0463

== ENCOUNTER 2024-09-22 08:30 | Outpatient (RCR) | payer MEDICARE, OTHER, SELFPAY ==
--- NOTE | 2024-08-09 08:56 | PTOPEVAL1 ---
Assessment and note entered by Kota Guerra Evaluation Information Assessment Status Evaluation ICD-10 Condition Codes (PT) Radiculopathy, lumbar region M54.16 Onset 08/10/23 Subjective Information Pt. reports that she has been experiencing right leg numbness and pain in the right hip/buttock for the past 1-2 years. She states that her pain is constant and has been worsening over the past year . Pt. reports that pain in the right leg and right buttock is worsened with standing in one position and sitting in one position. She reports pain is worsened when sitting on harder surfaces. She states that pain will wake her at night. She states that she is currently taking a sleep aid. She states that she is not taking any regular medication despite her pain. She reports that her activity level has decreased as her pain has progressed. She states that she enjoys walking and shopping, but avoids these activities due to increasing pain. She reports that she notices weakness in the right leg, but denies any falls. She reports that her goal is to reduce her right leg pain. Reported Pain Level Pain Score 7: Self Report Assessment PT Clinical Summary Pt. is a 68 year old female who enters the clinic with low back pain. She presents with indications of degenerative changes of the lumbar spine resulting in radicular symptoms at the right l.e. She presents with proximal l.e. weakness, impaired gait, impaired postural awareness, pain and functional decline. Continued skilled PT is indicated in order to improve these areas to allow the pt. to return to normal IADL performance without pain. Plan of Care Interventions Electrical Stimulation,Gait Training,Hot Pack/Cold Pack,Manual Therapy,Neuro Re-education,Patient/ Caregiver Education,Therapeutic Activities, Therapeutic Exercise PT Services Indicated Yes Treatment Frequency and 2x/week x 10 visits Duration These treatments will address the objective and functional deficits as defined above. The patient will be advanced safely and appropriately in order for the patient to progress towards his/her prior level of function. Additional exercises will be introduced and as well as a comprehensive home exercise program upon discharge, if needed, ?to ensure carryover of functional gains achieved in the clinic. This treatment plan has been reviewed and agreement upon by the patient.
--- NOTE | 2024-08-23 15:28 | PCPTNOTE ---
Patient cancelled appointment for today and 08/25 secondary to having a cadiac cath.
--- NOTE | 2024-09-22 09:29 | OPREHPOC ---
Outpatient Therapy Plan of Care This is a Multidisciplinary Plan of Care that may contain components documented by all disciplines (PT, OT, and ST.) PT Problem 1 PT Problem #1 Knowledge Deficit PT Goal 1 Goal / Goal Update Pt. will be independent with a HEP addressing core strength and trunk mobility. Target Visit 2 Progress Met PT Problem 2 PT Problem #2 Pain PT Goal 1 Goal / Goal Update Pt. will report 50% reduction in pain intensity at worst to 5/10 with long periods of standing. Target Visit 10 Progress Met PT Problem 3 PT Problem #3 Impaired Strength PT Goal 1 Goal / Goal Update Pt. will present with 4/5 right hip abduction strength. Pt. will demonstrate no degree of Trendelenburg during right stance phase. Target Visit 10 Progress Met PT Problem 4 PT Problem #4 Impaired Functional Mobility PT Goal 1 Goal / Goal Update Pt. will present with 20% improvement in overall score with the LEFS indicating significant functional improvement. Pt. will demonstrate ability to complete the 6 minute walk test without gait deviation for distance of 1300' indicating improved gait efficiency Pt. will report being able to stand/walk for duration of 30-45 minutes in order to participate in IADL's without limitation. 09/22/24: LEFS still lacking full accomplishment Target Visit 10 Progress Partially Met
--- NOTE | 2024-09-22 09:30 | PTOPDC ---
Assessment and note entered by Enrrique White, PT Evaluation Information Assessment Status Discharge ICD-10 Condition Codes (PT) Radiculopathy, lumbar region M54.16 Onset 08/10/23 Subjective Information Reports that overall she feels that she is doing much better. Minimal to no pain today. Reports absence of tingling in her foot. Feels she is doing well and ready for discharge at this time. Reported Pain Level Pain Score 1: Self Report Assessment PT Clinical Summary Patient has met all of her personal goals for therapy and is suitable for discharge at this time . She has seen improve pelvic and core strength and has been able to correct gait though volitional activation of core during ambulation. Discharged to [facility] at this time. Plan of Care PT Services Indicated Yes
== END 2024-09-22 11:06 | disposition home or self-care (01) ==
LOC: ANHGOSHPT 08:30
PROVIDERS: PCP Family Medicine; Visit Provider Physician Assistant Medical
DX: M54.41 Lumbago with sciatica, right side (principal); M25.551 Pain in right hip; G89.29 Other chronic pain
CPT/HCPCS: 97014; 97110; 97116; 97140; 97161; 97530; G0283

== ENCOUNTER 2024-10-10 07:57 | Outpatient (CLI) | payer MEDICARE, OTHER, SELFPAY ==
--- OUTSIDE RECORDS SUMMARY | 2024-10-10 08:01 | XMS_ITS | Clinical Summary ---
Author Organization [facility] Address [address] [place] [address] Care Team Providers Care Customs Director Name Role Phone Bossman Martinez MD Primary Care Provider [phone] Allergies Active Allergy Reactions Criticality Noted Date [...] on file Legal Sex Female 5:52 PM PLANT CULTURE MANAGER Gender Identity Not on file Sexual [...] 1:46 PM CDT Height 165.1 cm (5' 5) 10/04/2020 1:46 PM CDT Body Mass Index [...] this topic Medical Devices Implanted Type Area Chief Informatics Officer Device Identifier Shelf Expiration Date Model / Serial / Lot Clamp Clamp Description:FROM WRIST TO FO REARM Plate Plate Description:FROM WRIST TO FO REARM Procedures Procedure Name Priority Date/Time Associated Diagnosis Comments COLONOSCOPY Routine 04/30/2020 9:25 AM PLANT CULTURE MANAGER from Last 3 Months or Most Recently Relevant to Health Maintenance Results * Colonoscopy (04/30/2020 9:25 AM PLANT CULTURE MANAGER) Narrative Elia Hood MD - 04/30/2020 9:25 AM PLANT CULTURE MANAGER Elia Hood MD 05/13/2020 10:20 AM KRISTAL [...] the left lateral decubitus position, the Olympus [id number] colonoscope was introduced into the rectum and [...] Relevant to Health Maintenance Insurance MED REPLACE [facility] MEDICARE HUMAN Care Teams Customs Director Relationship Specialty Start Date End Date Bossman Martinez MD [address] [address] PCP - General FAMILY PRACTICE 04/25/20
--- OUTSIDE RECORDS SUMMARY | 2024-10-10 08:01 | XMS_ITS | Encounter Summary ---
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 No / Unsure 04/30/2020 7:50 AM NEEDLE LOOM WEAVER documented as of this encounter Plan of Treatment Not on file documented as of this encounter Results * PRE-SURGICAL/PRE-PROCEDURE CORONAVIRUS (COVID 19) (04/27/2020 10:36 AM NEEDLE LOOM WEAVER) CORONAVIRUS SARS COV 2 PCR (RESP) NOT DETECTED NOT DETECTED 04/28/2020 12:51 PM NEEDLE LOOM WEAVER [facility] Comment: A Not Detected (negative) test result [...] providers and patients using the following websites: https://www.[facility].com/home/Covid-19/HCP/QuestIVD/fact- sheet.html https://www.[facility].[place]/home/Covid-19/Patients/ Quest[facility]/fact-sheet.html This test has been authorized by the FDA under an Emergency Use Authorization (EUA) for use by authorized laboratories. Due to the current public health emergency, [employer] is receiving a high volume of samples [...] about COVID-19 can be found at the [employer] website: www.[place]/Covid19. Test performed at [facility] [address] [place] [address] Director: BRIANA FERNANDEZ DO,MPH FIRST TEST YES 04/27/2020 10:42 AM NEEDLE LOOM WEAVER [facility] EMPLOYED IN HEALTHCARE NO 04/27/2020 10:42 AM NEEDLE LOOM WEAVER [facility] SYMPTOMATIC DEFINED BY CDC NO 04/27/2020 10:42 AM NEEDLE LOOM WEAVER [facility] DATE OF SYMPTOM ONSET NO 04/27/2020 11:20 AM [facility] HOSPITALIZATION STATUS NO 04/27/2020 10:42 AM NEEDLE LOOM WEAVER [facility] PATIENT IN ICU NO 04/27/2020 10:42 AM [facility] RESIDENT OF [facility] NO 04/27/2020 10:42 AM NEEDLE LOOM WEAVER [facility] NO 04/27/2020 11:20 AM [facility] PATIENT'S RACE WHITE OR 04/27/2020 10:42 AM [facility] ETHNICITY NONHISPANIC 04/27/2020 10:42 AM [facility] SOURCE (QST) NASOPHARYNGEAL SWAB 04/27/2020 10:42 AM [facility] NASOPHARYNGEAL SWAB / Unknown 04/27/2020 10:36 AM NEEDLE LOOM WEAVER us Josue Negron MD MICROBIOLOGY - GENE RAL ORDERABLES Final Result [facility] [address] [place] [address], [place] [phone] [facility] [address] [place] [address], documented in this encounter Visit Diagnoses Diagnosis Hematochezia- Primary Blood in stool documented in this encounter Additional Health Concerns Infection Onset Date Last Indicated Resolved Time COVID-19 Rule Out 04/27/2020 04/27/2020 04/28/2020 12:52 PM NEEDLE LOOM WEAVER documented as of this encounter Care Teams Ribbon Blockmaker Relationship Specialty Start Date End Date Bossman Martinez MD [address] [place], [place] [id number] PCP - General FAMILY PRACTICE 04/25/20 documented as of this encounter
--- OUTSIDE RECORDS SUMMARY | 2024-10-10 08:01 | XMS_ITS | Data Portability ---
Author Organization [facility] [place] Address [address] [place] [address] Care Team Providers Care Senior Financial Reporting Analyst Name Role Phone SRIRAM RAWLS Primary Care Provider Assessment Encounter Date Assessment Date Assessment LastModified by Organization Details LastModified Time 01/07/2022 01/07/2022 Annual gynecological exam performed. Patient will come back in a year unless there are new symptoms. Not available 02/24/2021 17:36:05 09/15/2024 09/15/2024 Annual gynecological exam performed. Patient will come back in a year unless there are new symptoms. [email or web address] Not available 09/15/2024 12:32:26 Plan of Treatment Reminders Order Date Submit Date Provider Last Modified By Organization Details Last Modified Time Details Appointments None recorded. Lab None recorded. Referral bone health referral 2024 025 [facility], [address], [place], [address], 5 04:11:43 Procedures None recorded. Surgeries None recorded. Imaging MAMMO, screening, digital, bilateral 2024 025 [facility], [address], [address], [place], [address], 5 04:06:19 DEXA, axial skeleton + vertebral fracture assessment 2024 025 [facility], [address], [address], [place], [address], 5 04:11:44 MAMMO, screening, bilateral [address] [facility], [address], [address], [place], [address], 4 11:21:25 US, breast, unilateral, w/ axilla [address] [facility], [address], [address], [place], [address], 4 11:21:25 MAMMO, diagnostic, digital, bilateral 2021 022 [facility], [address], [address], [place], [address], 2 09:27:10 Medication Orders Imvexxy Maintenance Pack 10 mcg vaginal insert [address] [facility] [address] [facility], [address] [place] [address], [address], 5 12:37:42 Imvexxy Starter Pack 10 mcg vaginal insert, dose pack 2021 022 [email or web address] 1 [id number], [address] [place], [place], [id number], 3 09:30:11 Vagifem 10 mcg vaginal tablet 2021 022 [email or web address] ch[facility], [address] [place], [address], 3 15:56:09 raloxifene 60 mg tablet 2021 022 [facility], [address], [place], [address], 2 10:11:28 mupirocin 2 % topical ointment 2021 022 [email or web address] 1 [facility], [address], [place], [address], 09:30:18 Patient TargetsNo targets recorded. Patient InstructionsNo instructions recorded. Reason for Referral Bone Health Referral for Ost eopenia Referring Physician: Jacquelyn Staples, ENGINEHOUSE BRAKEMAN, Encounter Date: 09/15/2024 Results Created Date Observation Date Name Description Value Unit Range Abnormal Flag Note LastModifiedBy Organization Detail LastModifiedTime 10/29/19 MAMMO , diagn ostic , digit al, bilat eral No observ ation record ed. [facility] [address], [place], [address], 10/31/2021 16:38:24 02/20/20 22 02/06/2022 DEXA, axial skele ton No observ ation record ed. [facility] [address], [place], [address], 12/24/2022 09:30:42 Result Notes None recorded. Problems Name Problem SNOMED Code Status Onset Date Resolution Date Notes Provider Name and Address Organization Details Recorded Time Screenin g for malignan t neoplasm of rectum Completed 201602/24/2021 Encounter for screening for malignant neoplasm of rectum;Pr actice ID: 0001 Radha Jose De Jesus esqueda [facility] 17:26:52 Dysuria [id number] Completed 201702/24/2021 Dysuria;P ractice ID: 0001 Radha Jose De Jesus esqueda [facility] 17:26:41 Evaluati on finding Completed 201702/24/2021 Hematuria , unspecifi ed;Practi ce ID: 0001 Radha Jose De Jesus esqueda [facility] 17:26:[address] Concept Completed 201702/24/2021 Encounter for general adult medical exam w abnormal findings; Practice ID: 0001 Radha Dela Cruz [facility] 17:26:[address] Concept Completed 201702/24/2021 Encntr for clinical rn liaison exam (general) (routine) w/o abn findings; Practice ID: 0001 Radha Dela Cruz [facility] 17:26:[address] Concept Completed 201802/24/2021 Encntr for general adult medical exam w/o abnormal findings; Practice ID: 0001 Radha [facility] 17:26:[address] Concept Completed 201602/24/2021 Encounter for general clinical rn liaison exam with abnormal findings; Recorded Elsewhere : No Locati on: [facility] So urce: EHR Chron ic: N Practic e ID: 0001 Bill able Time: 08:30:[address] [facility] 17:26:56 Microsco pic hematuri a [id number] Completed 201602/24/2021 Other microscop ic hematuria ;Recorded Elsewhere : No Locati on: [facility] So urce: EHR Chron ic: N Practic e ID: 0001 Bill able Time: 08:30:[address] [facility] 17:26:46 Hyperten sive disorder [id number] Completed 201602/24/2021 Hypertens ion;Recor ded Elsewhere : No Locati on: [facility] So urce: EHR Chron ic: N Practic e ID: 0001 Bill able Time: 08:30:[address] [facility] 17:26:44 Acute vaginiti s [id number] Completed 201502/24/2021 Vaginitis ;Recorded Elsewhere : No Locati on: [facility] So urce: EHR Chron ic: N Practic e ID: 0001 Bill able Time: 11:00:00 AM Radha Dela Cruz [facility] 17:26:39 Osteopen misty [id number] Completed 201902/24/2021 Radha Dela Cruz [facility] 17:26:49 Problem Notes None recorded. Procedures Surgical History Date Name Laterality Status Provider Name and Address Organization Details Recorded Time 01/11/20 23 operation on heart valve completed Luisa Macias [facility] 09/15/2024 12:42:30 01/11/20 [address] [facility] 12/29/2022 09:55:12 10/29/19 22 Date of Last Mammogram completed [facility] 01/07/2022 11:42:21 02/06/20 20 completed [facility] 02/24/2021 17:32:17 11/25/19 19 Date of Last Pap Smear completed [facility] 02/24/2021 17:31:21 04/12/19 18 procedure on foot completed [facility] 12/29/2022 09:56:20 04/12/19 15 fluoroscopy guided angioplasty of artery with contrast completed [facility] 12/29/2022 09:55:20 04/12/19 07 procedure on wrist completed [facility] 12/29/2022 09:54:47 04/12/[address] [facility] 12/29/2022 09:54:41 04/12/[address] [facility] 12/29/2022 09:31:41 Imaging Results None recorded. Procedure Notes None recorded. Medical Equipment None Reported. Allergies Allergen ID Allergen Name Allergen Category Reaction Reaction Severity Criticality Documentation Date Start Date Code Code System Note Provider Name and Address Organization Details Recorded Time 2128 cefuroxim e Not available Not available Not available Not available 01/04/20202193 RxNorm Aure esqueda, [facility] 0 09:36:02 2129 Substance with sulfonami de structure and antibacte rial mechanism of action (substanc e) medicatio n Not available Not available Not available 01/04/2020 68891 8003 SNOMED Aure esquead, [facility] 0 09:36:07 Medications Name Sig Start [...] TABLET BY MOUTH EVERY DAY AT BEDTIME 09/15 completed Not Available Not Available Not Available prednison e 10 mg tablet TAKE 3 TABLETS BY MOUTH DAILY FOR 5 DAYS 09/15 completed Not Available Not Available Not Available doxycycli ne hyclate 100 mg capsule TAKE 1 CAPSULE BY MOUTH TWICE DAILY 12/29 completed Not Available Not Available Not Available nabumeton e 750 mg tablet 09/29 completed Not Available Not Available Not Available tizanidin e 2 mg tablet TAKE 1 TABLET BY MOUTH THREE TIMES DAILY NEEDED FOR MUSCLE SPASMS 09/15 completed Not Available Not Available Not Available clindamyc in HCl 300 mg capsule 02/24 completed Not Available Not Available Not Available azithromy vesna 250 mg tablet TK 2 TS PO ON DAY 1, THEN TK 1 T PO D FOR 4 DAYS 09/15 completed Not Available Not Available Not Available meloxicam 15 mg tablet TAKE 1 TABLET BY MOUTH [...] TAKE 1 TABLET BY MOUTH EVERY MORNING 09/15 completed Not Available Not Available Not Available ciproflox acin 500 mg tablet 02/24 completed Not Available Not Available Not Available omeprazol e 40 mg capsule,d elayed release TAKE ONE CAPSULE BY MOUTH EVERY DAY 09/29 completed Not Available Not Available Not Available aspirin 81 mg tablet,de layed release TAKE 1 TABLET BY MOUTH EVERY MORNING active Not Available Not Available No t Available amoxicill in 500 mg tablet TAKE 1 TABLET BY MOUTH THREE TIMES DAILY UNTIL ALL TAKEN 09/15 completed Not Available Not Available Not Available prednisol one acetate 1 % eye drops,romero pension SHAKE LIQUID AND INSTILL 1 DROP IN RIGHT EYE FOUR TIMES DAILY 07/26 completed Not Available Not Available Not Available Protonix 40 mg intraveno us solution infuse by intraven ous route every day 09/29 completed Prescrib ed Elsewher e: Yes [facility] By: cheryle vela DateTime : 11/23/19 18 01:00:00 PM Not Available Not Available Not Available pantopraz ole 40 mg tablet,de layed release TAKE 1 TABLET BY MOUTH TWICE DAILY active Not Available Not Available No t Available prednison e 50 mg tablet TAKE 1 TABLET BY MOUTH DAILY FOR 5 DAYS 01/06 completed Not Available Not Available Not Available nitroglyc alvaro 0.4 mg sublingua l tablet DISSOLVE 1 TABLET UNDER TONGUE EVERY 5 MINUTES NEEDED FOR CHEST PAIN UP TO 3 DOSES. CALL 911 IF 3RD DOSE IS USED active Not Available Not Available No t Available raloxifen e 60 mg tablet TAKE 1 TABLET BY MOUTH EVERY DAY active Not Available Not Available No t Available mupirocin 2 % topical ointment APPLY SMALL AMOUNT TOPICALL Y TO THE AFFECTED AREA THREE TIMES DAILY 12/29 completed Not Available Not Available Not Available metoprolo l succinate ER 25 mg tablet,ex tended release 24 hr Take 1 tablet every day by oral route. active Not Available Not Available No t Available albuterol sulfate HFA 90 mcg/actua tion aerosol inhaler INHALE 1 PUFF EVERY 4 HOURS NEEDED FOR SHORTNES S OF BREATH OR WHEEZING 07/26 completed Not Available Not Available Not Available Cipro 250 mg tablet take 1 tablet by oral route every 12 hours 11/24 completed Prescrib ed Elsewher e: No Locat ion: Mayra gaxiola [facility] odify By: jerome Blanton r DateTime : 11/23/19 18 01:00:00 PM Not Available Not Available Not Available Lipitor 10 mg tablet take 1 tablet by oral route every day 10/19 completed Prescrib ed Elsewher e: Yes Loca tion: Mayra gaxiola [facility] odify By: tiffany Blanton r DateTime [...] No t Available ezetimibe 10 mg tablet TAKE 1 TABLET BY [...] Prescrib ed Elsewher e: Yes [facility] By: tiffany Blanton r DateTime : 10/20/19 17 08:30:00 AM Not Available Not Available Not Available bupropion HCl XL 150 mg 24 hr tablet, extended release TAKE 1 TABLET BY MOUTH EVERY MORNING 09/15 completed Not Available Not Available Not Available mesalamin e 1,000 mg rectal supposito ry INSERT 1 SUPPOSIT ORY RECTALLY EVERY DAY 09/29 completed Not Available Not Available Not Available Vitamin D active Not Available Not Louisa ilable Not Available Vitamin D3 active Not Available Not Available Not Available mesalamin e 1.2 gram tablet,de layed release TAKE 4 TABLETS BY MOUTH EVERY DAY 01/07 completed Not Available Not Available Not Available Lovaza 1 gram capsule take 2 capsule by oral route 2 times every day 09/29 completed Prescrib olamide gaxiola: Yes Loca tion: Mayra gaxiola [facility] Nicolasa odify By: tiffany chavira DateTime : 03/01/20 08:30:00 AM Not Available Not Available Not Available Lovaza 02/24 completed Not Available Not Available Not Available estradiol 10 mcg vaginal tablet INSERT 1 TABLET VAGINALL Y 2 TIMES A WEEK 12/17 completed Not Available Not Available Not Available B12 active Not Available Not Availa ble Not Available Imvexxy Starter Pack 10 mcg [...] vaginal route as directed for 30 days. 09/15 completed Not Available Not Available Not Available Fluad Quad 9974-1368 (65yr up)(PF) 60 mcg (15 mcg x 4)/0.5mL IM syringe 02/24 completed Not Available Not Available Not Available Vitals Date Recorded Body height Body mass index (BMI) Body weight Systolic blood pressure Diastolic blood pressure Provider Name and Address Organization Details Last Updated DateTime 07/27/2023 161.29 cm 29.5 kg/m2 90975.11 g 146 mm[Hg] 74 mm[Hg] Radha Edwards [facility] 4 09:29:10 Date Recorded Body height Body mass index (BMI) Body weight Systolic blood pressure Diastolic blood pressure Provider Name and Address Organization Details Last Updated DateTime 09/15/2024 161.29 cm 31.2 kg/m2 47854.03 g 125 mm[Hg] 76 mm[Hg] Luisa Macias [facility] 5 12:36:27 Date Recorded Systolic blood pressure Diastolic blood pressure Provider Name and Address Organization Details Last Updated DateTime 09/29/2021 124 mm[Hg] 74 mm[Hg] IRENA Peres- [address], [place], [address], [facility] 09/29/2021 10:24:03 Date Recorded Body height Body mass index (BMI) Body weight Provider Name and Address Organization Details Last Updated DateTime 09/29/2021 161.29 cm 28.2 kg/m2 02850.96 g Radha Dela Cruz [facility] 09/29/2021 09:54:37 Date Recorded Systolic blood pressure Diastolic blood pressure Provider Name and Address Organization Details Last Updated DateTime 12/29/2022 124 mm[Hg] 80 mm[Hg] Ivett Naidu [facility] [address], [place], [address], [facility] 12/29/2022 15:35:32 Date Recorded Body height Body mass index (BMI) Body weight Systolic blood pressure Diastolic blood pressure Provider Name and Address Organization Details Last Updated DateTime 12/29/2022 161.29 cm 30 kg/m2 77751.89 g 162 mm[Hg] 63 mm[Hg] Wilda Worrell [facility] 09:28:38 Date Recorded Systolic blood pressure Diastolic blood pressure Provider Name and Address Organization Details Last Updated DateTime 01/07/2022 128 mm[Hg] 74 mm[Hg] Ivett Naidu [facility] [address], [place], [address], [facility] 01/07/2022 11:58:06 Date Recorded Body height Body mass index (BMI) Body weight Provider Name and Address Organization Details Last Updated DateTime 01/07/2022 161.29 cm 28.8 kg/m2 84801.74 g Radha Dela Cruz [facility] 01/07/2022 11:41:28 Social History Question Answer Notes LastModified by Organizat ion Details LastModified Time Tobacco Smoking Status Never Smoker Wilda esqueda, [facility] 12/29/2022 09:22:00 Do You Have An Advance Directive? No Information n ot available 01/07/2022 Are You Blind Or Do You Have [...] Or The Highest Degree You Have Received? [id number] Information not available 01/07/2022 Do You Use Protection During Sex? No Information not available 01/07/2022 Do You Use Your Seat Belt Or Car Seat Routinely? Yes Information not available 02/24/2021 Do You Have Smoke And Carbon Monoxide Detectors In Your Home? Yes Information not available 02/24/2021 How Much Tobacco Do You Smoke? No Information not available 01/07/2022 Do You Use Sunscreen Routinely? Yes Information not available 02/24/2021 Have You Used IV Drugs? Yes Information not available 01/07/2022 Do You Have Difficulty Walking Or Climbing Stairs? No [email or web address] Information not available 12/29/2022 Sex: Unknown Functional Status Question Answer Note LastModified by Organizat ion Details LastModified Time Do you use any illicit or recreational drugs? No Information not available 02/24/2021 What is your level of alcohol consumption? Occasional Information not available 02/24/2021 Are you able to walk? YESWOREST Information not available 02/24/2021 Are you able to care for yourself? Yes [email or web address] Information n ot available 12/29/2022 What is your occupation? Retired Information not available 01/07/2022 Do you have difficulty dressing or bathing? No [email or web address] Information not available 12/29/2022 What is your exercise level? Moderate Information not available 02/24/2021 Mental Status Question Answer Note LastModified by Organization D etails LastModified Time Do you feel stressed (tense, restless, nervous, or anxious, or unable to sleep at night)? [id number] Information not available 02/24/2021 Family History Relationship Description Onset Age of this Age Resolved Age Notes LastModified by Organization Details LastModified Time Mother Carcinoma in situ of breast [email or web address] Not available 2024 12:06:01 Mother Suspected cervical [email or web address] Not available 2024 12:06:01 Mother Diabetes mellitus [email or web address] Not available 12/29 09:29:14 Mother Disorder of cardiovascul ar system [email or web address] Not available 2024 12:06:01 Mother Recurrent ovarian cancer [email or web address] Not available 2024 12:06:01 Paternal Grandmother Carcinoma in situ of breast [email or web address] Not available 2024 12:06:01 Maternal Grandmother Diabetes mellitus [email or web address] Not available 12/29 09:29:14 Maternal Aunt Diabetes mellitus [email or web address] Not available 12/29 09:29:14 Father Disorder of cardiovascul ar system [email or web address] Not available 2024 12:06:01 Father Hypercholest erolemia Not available 12/29 09:29:14 Father Carcinoma in situ of lung [email or web address] Not available 09/2024 12:06:01 Father Hypertensive disorder Not available 12/29 09:29:14 Maternal Grandfather Disorder of cardiovascul ar system [email or web address] Not available 2024 12:06:01 Paternal Grandfather Disorder of cardiovascul ar system [email or web address] Not available 2024 12:06:02 Paternal Uncle Family history of cancer of colon [email or web address] Not available 2024 12:06:02 Medical History Condition Response Allergies (Food, seasonal, environmental ) Y Other N Breast Cancer N Drug/Latex Allergies/Reactions Y Blood Transfusion N Dermatologic Disorders N Lung Disease N Defects or Inherited Disease N Breast Problem N Gestational Diabetes N Hematologic disorders N Anesthesia Complications N History of STI N Deep Vein Thrombosis Y Polycystic ovary syndrome N Anxiety Disorder Y Autoimmune disease N Arthritis Y Infertility N Polyps N Acid Reflux (GERD) Y History of abnormal pap N Cancer N Stroke N Varicosities N Neurologic/Epilepsy N Endometriosis N High Cholesterol Y Headaches N Fibromyalgia N Kidney Disease N Heart Problems Y Kidney or Bladder Problems Y Thyroid Problems N GI Problems Y Eating Disorder N Anemia N Art (IVF or FET) N Psychiatric Illness N Ovarian Cancer N Diabetes N Pulmonary (TB, Asthma) N Hepatitis/Liver Disease N Eczema N Urinary Tract Infection N Abuse/Domestic Violence N Asthma Y Trauma/Violence N Depression/ depression [...] SNOMED-CT Code Diagnosis ICD10 Code Diagnosis Note [id number] Ivett Naidu [facility] [address] [address] 01/04/2020 09:27:33 01/04/2020 10:37:26 Screening for osteoporosis 953379311 Z13.820 Q78.2 Gynecologi c examination 06620538 Z01.419 Take Calcium with Vitamin D 12-1500mg daily. Do monthly self breast exams. It is advised to get annual flu shot in the fall and she could obtain at [facility] or [facility] care clinic. If you haven't received the Tdap vaccine [...] or respond to this email Atrophic vaginitis 11832 000 N95.2 She is currently on Vaginal estrogen 3x per week since her hysterecto my. Voices it does work but has noted a bit more dryness this year. Has been using Replens OTC but it is not helping. We discussed VCGs & use of vaginal vegetable moisturize r 2x/day along with estrogen therapy. RTO x 3mos Reduced libido 1392487 R 68.82 At upcoming f/u we will further discuss low libido & possible trial of Testostero ne cream to help low libido. Tenderness of breast 552 58614 N64.4 [id number] Ivett Naidu , [facility] [address] [address] 01/07/2022 10:53:40 01/07/2022 14:12:18 Gynecologic examination 37311949 Z01.419 Take Calcium with Vitamin D 12-1500mg daily. Do monthly self breast exams. It is advised to get annual flu shot in the fall and she could obtain at [facility] or [facility] care clinic. If you haven't received the Tdap vaccine [...] Labs --going to see PCPMammo ordered Dyspareunia 39157438 N94 .10 Doesn't feel vagifem tablet is as helpful as she would've expected.W khalida decided to try Imvexxy supps instead.Sa mirna give & okay to reach out and let us know what she thinks of this product. [id number] Ivett Naidu [facility] [address],[place] [address] 09/29/2021 09:28:36 09/29/2021 11:33:18 Atrophic vaginitis 14574695 N95.2 Doing well on this therapy.We agreed to continue at this time unless otherwise indicated. RF sent Postmenopa usal osteopenia 337877211 M85.80 Updating imagingRF sent Pain of breast 56854977 N64.4 N63.31 Z80.3 Breast exam warrants further diagnostic evaluation . Hypertriglyceridemia 302 985897 E78.2 Suggested going to see PCP for updated visit to have her recent labs she has brought today evaluated & possibly new medication prescribed . Agreeable to plan.Will contact her PCP Skin lesion 38867204 L98 .9 [id number] Ivett Naidu [facility] [address],[place] [address] 12/29/2022 09:10:45 12/29/2022 15:37:36 Atrophic vaginitis 92123536 N95.2 Discussed r/b of imvexxy with current [...] counseling and review of plan of care. [id number] [facility] [address],[place] [address] 07/27/2023 09:18:02 07/27/2023 09:57:22 Pain of right breast 3713206268 N64.4 Right onlyTender in inner lower quadrant and upper outer quadrant extending into axillary.N o other abn findingsWi ll call to schedule Time spent in visit is a total of 21 mins with at least 50% of visit consisting of counseling and review of plan of care. Screening mammography 24 794145 Z12.31 Due for screening mammo since last completed 2021 [id number] Jacquelyn Staples [facility] [place] [address] [address] 09/15/2024 12:05:12 09/18/2024 16:32:41 Gynecologic examination 10544481 Z01.419 WWEPap - not indicated todaySTI screen - declinedMa mmogram - order givenColon cancer screening - UTD/PCPDex a - order givenRouti ne labs - UTD/PCPRTC in 1 yr or sooner if needed Do monthly self breast exams.It is advised to get annual flu shot in the fall and she could obtain at local pharmacy. If you haven't received the Tdap vaccine in the last 10 years you should obtain one as well.Have mammogram yearly, bone density every 2-3 years and stay up to date on colon cancer screening. Engage in regular exercise. Avoid tobacco and illicit drugs. This lifestyle behavior pattern will lead to less health conditions and longer life span. If BMI greater than 25 dietary consult advised.Qu estions have been answered. Osteopenia [id number] M85 .80 discussed bone health hx (on evista for the past 10+yrs) in relation to her current medical hx/conditi onsRec d/c evista and consult with [facility] to discuss alternativ e options. Referral placedorde r given for updated dexa as well Screening for osteoporosis 082052095 Z13.820 Screening mammography 24 676089 Z12.31 Health Concerns Section Related Observation LastModified by Organization Detai ls LastModified Time None Recorded Concern Status LastModified by Organization Details LastModified Time None Recorded Advance Directives Directive N: Payers Insurance Date Sequence Insurance Name Policy Number Policy Starkey Covered Member ID Starkey Member ID Guarantor Name 09/19/2024 2 FOR LIFE ( - MEDICARE SUPPLEMENT) Hudson Charles [id number] Hudson Charles 09/18/2024 1 [facility] (MEDICARE REPLACEMENT/ ADVANTAGE - PPO) [id number] [place] [id number] [place] 01/12/2023 2 FOR LIFE () [place] [id number] [place] 09/19/2024 1 [employer] (MEDICARE REPLACEMENT/ ADVANTAGE - PPO) [id number] [place] [id number] [place] Notes Date Note Type Note Provider Name and Address Organization Details Recorded Time 09/29/2021 text/html Here today for f /u [...] area.Neg d/c, itching, skin changes, nipple d/c. Ivett Naidu, NP- [address], [place], [address], [place] [facility] 09/29/2021 10:31:03 01/07/2022 text/html Annual Compliance Associate Post-MenopausalRepor moisés bypatient.Menopausal Symptoms:no menopausal symptoms;inadequacy of [...] to schedule mammogram; history of recent colonoscopy [facility] [address], [place], [address], [facility] 01/07/2022 14:10:49 12/29/2022 text/html Here today to discuss imvexxy usage and current health Hx. Ivett Naidu ALEX [address], [place], [address], [facility] 12/29/2022 15:37:04 07/27/2023 text/html Breast PainRepor moisés bypatient.Location: ight Onset/Timin-7 days Duration:rare Quality:aching Severity:mild Context:post menopause; fibrocystic breasts; history of 1 prior biopsies; Has marker in right breast for dense tissue Associated Symptoms:no fever; no chills; no skin redness; no nipple discharge; no sore nipples; breasts not full, sore, unable to express milk; no breast swelling; no arm pain; no arm swelling; no chest pain; no malaise; no breast lump Ivett Naidu ALEX [address], [place], [address], [facility] 07/27/2023 09:47:26 09/15/2024 text/html Annual Compliance Associate Post-MenopausalRepor moisés bypatient.Menopausal Symptoms:no menopausal symptoms; normal vaginal lubrication Vaginal Bleeding:history of menopause having occurred; no history of post menopausal bleeding Urinary Symptoms:no hematuria; no incontinence; no nocturia; no urinary frequency Vulva:no genital lesion; no vulvar atrophy Vagina:normal vaginal discharge; no vaginal atrophy Breast:no breast lump; no nipple discharge; no breast pain Sexual Complaints:no sexual complaints Psychological Symptoms:no depression; no anxiety Preventive Measures:encourage regular mammograms starting age 40; encourage self breast examination; encourage regular exercise; encourage no tobacco useNotes:68yo wweh/o hyst BSOlast pap 2018 wnlmammogram last olonoscopy UTDdexa last 2021 : osteopenia. On evista for the past 10+ yrs IRENA Borges [address], [place], [address], [place] [facility] 09/18/2024 14:18:08 OBGyn Episode Ob Episode Information Episode Created Date Number of Fetuses Patient Bloodtype Patient rh Status Prepregnancy Weight lbs Domestic Partner Domestic Partner Phone Father Name Support Manager Status 01/04/20 20 1 CLOSED Fetus Data [...] Domestic Partner Domestic Partner Phone Father Name Support Manager Status 01/04/20 20 1 CLOSED Fetus Data [...]
--- OUTSIDE RECORDS SUMMARY | 2024-10-10 08:01 | XMS_ITS | Clinical Summary ---
Author Organization [facility] Address [address] [place] [address] Care Team Providers Care Bacteriologist Dairy Name Role Phone Bossman Martinez MD Primary Care Provider [phone] Allergies Active Allergy Reactions Criticality Noted Date Comments Cefuroxime Sulfa (Sulfonamide Antibiotics) Unknown,Other (See comments) Low 08/07/2022 Medications cholecalciferol (VITAMIN D-3) 5,000 unit tablet Take 1 tablet (5,000 Units total) by mouth daily Active aspirin 81 mg enteric coated tablet Take 1 tablet (81 mg total) by mouth every morning 2 Active raloxifene (EVISTA) 60 mg tablet Take 1 tablet (60 mg total) by mouth daily 2 Active Imvexxy Maintenance Pack 10 mcg insert vaginal insert [address] (Protonix) 40 mg EC tablet Take 1 tablet (40 mg total) by mouth 2 (two) times a day Active escitalopram (LEXAPRO) 10 mg tablet Take 1 tablet (10 mg total) by mouth daily 3 Active rosuvastatin (CRESTOR) 40 mg tabletIndication s:Coronary artery disease involving [place] coronary artery of [place] heart without angina pectoris TAKE 1 TABLET(40 MG) BY MOUTH DAILY 90 tablet 1 4 Active ezetimibe (ZETIA) 10 mg tablet TAKE 1 TABLET(10 MG) BY MOUTH DAILY 90 tablet 3 4 Active metoprolol XL (TOPROL-XL) 25 mg extended release tablet Take 1 tablet (25 mg total) by mouth daily 90 tablet Active nitroglycerin (NITROSTAT) 0.4 mg SL tabletIndication s:acute episode of anginal pain Place 1 tablet (0.4 mg total) under the tongue every 5 (five) minutes as needed for chest pain May repeat dose q 5 min, up to 3 doses total 50 tablet 1 5 08/09/19 26 Active buPROPion XL (WELLBUTRIN XL) 150 mg 24 hr tablet Take 1 tablet (150 mg total) by mouth daily 09/12/19 25 Discontinue d(No longer taking - Do not display on AVS) Active Problems Problem Noted Date Diagnosed Date Nonrheumatic aortic valve insufficiency 12/11/19 23 Coronary artery disease of n ative artery of [place] heart with stable angina pectoris 08/07/2022 Mixed hyperlipidemia 08/07/2022 Primary hypertension 08/07/2022 S/P coronary artery stent placement 08/07/2022 Vitamin D deficiency disease 06/09/2012 Osteoporosis 06/04/2011 Encounters Date Type Department Care Team Description 09/11/2024 8:00 AM CDT Office Visit [facility] Cardiology [address] [place] [address] [address] [place] [address] Olga Zendejas, SUZANNE Coronary artery disease of [place] artery of [place] heart with stable angina pectoris (Primary Dx); Mixed hyperlipidemia; Nonrheumatic aortic valve insufficiency; Lipid screening 08/23/2024 Orders Only [facility] Cardiology [address] [place] [address] [address] [place] [address] Carlyn Buenrostro MD 08/08/2024 8:15 AM CDT Office Visit [facility] Cardiology at [address] [place] [phone] Derik Wong MD Coronary artery disease involving [place] coronary artery of [place] heart with unstable angina pectoris (HCC) (Primary Dx); Mixed hyperlipidemia; Nonrheumatic aortic valve insufficiency; Primary hypertension; Coronary artery disease involving [place] coronary artery of [place] heart without angina pectoris 08/08/2024 Telephone [facility] Cardiology [address] [place] [address] [address] [place] [address] Derik Wong MD from Last 3 Months Immunizations Immunization Administration Dates Next Due Influenza, Quadrivalent, Ni l Culture-based MDCK, Preservative Free, Antibiotic Free, Intramuscular 01/24/2018 Surgical History Surgery Date Site/Laterality Comments BACK SURGERY Back Surgery - (Added by Conv) HYSTERECTOMY FRACTURE SURGERY SHUNT EXTERNALIZATION CATARACT EXTRACTION Medical History Medical History Date Comments Finding of body mass index Body Mass Index - (Added by Conv) Personal history of healed t raumatic fracture History of fracture of foot - (Added by Conv) Personal history of healed t raumatic fracture History of fracture of rib - (Added by Conv) Osteoporosis Heart disease Hypertension Anxiety Family History Medical History Relation Name Comments Breast cancer Other 2 Breast Cancer - (Added by Conv) Relation Name Status Comments Other 1 Alive Other 2 Social History Tobacco Use Types Packs/Day Years Used Date Smoking Tobacco: Never Smokeless Tobacco: Never Tobacco Cessation:Counseling Given: Not Answered Comments Unknown Sex and Gender Information Value Date Recorded Sex Assigned at Not on file 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 Gender Identity Not on file Sexual Orientation Not on file Obstetrics History Last Filed Vital Signs Vital Sign Reading Time Taken Comments Blood Pressure 134/72 09/11/2024 7:46 AM CDT Pulse 73 09/11/2024 7:46 AM CDT Temperature - - Respiratory Rate 18 09/11/2024 7:46 AM CDT Oxygen Saturation 97% 09/11/2024 7:46 AM CDT Inhaled Oxygen Concentration - - Weight 78 kg (172 lb) 09/11/2024 7:46 AM CDT Height 160 cm (5' 3) 09/11/2024 7:46 AM CDT Body Mass Index 30.47 09/11/2024 7:46 AM CDT Plan of Treatment Health Maintenance Due Date Last Done Comments Breast Cancer Screening-Mammogram 1955 Colon Cancer Screening-Colonoscopy 1955 Depression Screening 1955 Fall Risk Assessment 1955 Hepatitis C Screening 1955 DTaP/Tdap/Td Vaccine (1 - Tdap) 1964 Hepatitis B Screening 12/28/1971 Pneumococcal vaccine 65+ (1 of 2 - PCV) 1972 Zoster Vaccine (2 of 3) 07/01/2012 05/06/2012 Well Visit 65+ 2018 Covid-19 Vaccine (4 2023-2 5 season) 2023 01/15/2021, 06/15/2020, 05/24/2020 Osteoporosis Screening-Bone Density Scan 02/20/2024 02/19/2022, 02/06/2022, 11/06/2013, Additional history exists Influenza Vaccine (Season Ended) 2024 02/05/2021, 01/16/2020, 02/07/2019, Additional history exists Procedures Procedure Name Priority Date/Time Associated Diagnosis Comments POCT LIPID PANEL Routine 09/11/2024 9:01 AM CDT Lipid screening CARDIOLOGY DOCUMENT SCAN Routine 08/18/2024 5:43 PM CDT ECG 12-LEAD Routine 08/08/2024 11:51 AM CDT Nonrheumatic aortic valve insufficiency POCT LIPID PANEL Routine 08/08/2024 7:49 AM CDT Coronary artery disease involving [place] coronary artery of [place] heart with unstable angina pectoris (HCC) Mixed hyperlipidemia BONE MINERAL DENSITY 11/06/2013 from Last 3 Months or Most Recently Relevant to Health Maintenance Results * (ABNORMAL) POCT lipid panel (09/11/2024 9:01 AM CDT) Cholesterol, POC 180 <200 MG/DL HDL, POC 52 >=40 mg/dL Triglycerides, POC 151(A) <=149 mg/dL LDL Cholesterol POC 98 <=129 mg/dL Chol/HDL Ratio, POC 1.9 NONE Non-HDL Cholesterol, POC 128 NONE mg/dL Cholesterol Total, POC 180 30 - 199 mg/dL Capillary blood 09/11/2024 9 :01 AM CDT us Olga Zendejas NP POINT OF CARE TEST ORDERA BLES Final Result * Cardiology Document Scan (08/18/2024 5:43 PM CDT) Anatomical Region Laterality Modality Other us Carlyn Buenrostro MD CV CARDIAC SERVICES PRO CEDURES Final Result * ECG 12 lead (08/08/2024 11:51 AM CDT) Derik Wong MD ECG ORDERABLES Final Res ult * POCT lipid panel (08/08/2024 7:49 AM CDT) Cholesterol, POC 244 mg/dL HDL, POC 30 mg/dL Triglycerides, POC 169 mg/dL LDL Cholesterol POC 180 mg/dL Chol/HDL Ratio, POC 8.2 Non-HDL Cholesterol, POC 214 mg/dL Cholesterol Total, POC 244 mg/dL Capillary blood 08/08/2024 7 :49 AM CDT Derik Wong MD POINT OF CARE TEST ORDERA BLES Final Result * BONE MINERAL DENSITY (11/06/2013) Anatomical Region Laterality Modality Radiographic Janeth ging Narrative 11/06/2013 Ordered by an unspecified provider. Historical Provider IMG DXA PROCEDURES Final Result from Last 3 Months or Most Recently Relevant to Health Maintenance Insurance [employer] MEDICARE [employer] [facility] MEDICARE [facility] MEDICARE [facility] FOR LIFE Care Teams Bacteriologist Dairy Relationship Specialty Start Date End Date Bossman Martinez MD PCP - General Family Medicine 01/24/18
--- OUTSIDE RECORDS SUMMARY | 2024-10-10 08:01 | XMS_ITS | Clinical Summary ---
Author Organization [facility] Address [address] [place] [address] Care Team Providers Care Bone Char Puller Name Role Phone Bossman Martinez MD Primary Care Provider [phone] Source Comments [facility],non-owned Affiliates and Associated Physician Practices is amultiple site organization consisting of ambulatory clinics and hospital sitesin [place], [place], [place] and [place]. This disclosure is being madepursuant to the Care Everywhere program and may not contain all information available regarding this patient. Last updated 17.[facility] Allergies Active Allergy Reactions Criticality Noted Date Comments Cefuroxime Other 12/06/2018 Ended up in hospital with C DIFF Medications * Be aware that medications may not be up to date on this document. Alwaysverify current medications with the patient. rosuvastatin (CRESTOR) 10 MG tablet Take 10 mg by mouth once daily Active [id number] Ethyl Esters (LOVAZA PO) Active Estradiol (VAGIFEM [...] 2:18 PM CDT Height 165.1 cm (5' 5) 12/06/2018 2:18 PM CDT Body Mass Index [...] age to complete this topic Insurance [facility] MANAGED MEDICARE ADV Care Teams Bone Char Puller Relationship Specialty Start Date End Date Bossman Martinez MD [address] [place] [address] PCP - General Family Medicine 12/06/18
--- OUTSIDE RECORDS SUMMARY | 2024-10-10 08:01 | XMS_ITS | Referral Summary ---
Author Organization [facility] Address [address] [place] [address] Care Team Providers Care President And Chief Operating Officer Name Role Phone Bossman Martinez MD Primary Care Provider Encounters Date Type Department Care Team Description 09/11/2024 8:00 AM CDT Office Visit [facility] Cardiology [address] [place] [address] [place] [phone] Olga Zendejas NP Coronary artery disease of [place] artery of [place] heart with stable angina pectoris (Primary Dx); Mixed hyperlipidemia; Nonrheumatic aortic valve insufficiency; Lipid screening 08/23/2024 Orders Only [facility] Cardiology [address] [place] [address] [place] [phone] Carlyn Buenrostro MD 08/08/2024 Telephone [facility] Cardiology [address] [place] [address] [place] [phone] Derik Wong MD 08/08/2024 8:15 AM CDT Office Visit [facility] Cardiology at [address] [place] [address] Derik Wong MD Coronary artery disease involving [place] coronary artery of [place] heart with unstable angina pectoris (HCC) (Primary Dx); Mixed hyperlipidemia; Nonrheumatic aortic valve insufficiency; Primary hypertension; Coronary artery disease involving [place] coronary artery of [place] heart without angina pectoris from Last 3 Months Allergies Active Allergy Reactions Criticality Noted Date [...] 40 mg tabletIndication s:Coronary artery disease involving [place] coronary artery of [place] heart without angina pectoris TAKE 1 TABLET(40 MG) BY MOUTH DAILY 90 tablet 1 4 Active ezetimibe (ZETIA) 10 mg tablet TAKE 1 TABLET(10 MG) BY MOUTH DAILY 90 tablet 3 4 Active metoprolol XL (TOPROL-XL) 25 mg extended release tablet Take 1 tablet (25 mg total) by mouth daily 90 tablet 5 Active nitroglycerin (NITROSTAT) 0.4 mg SL tabletIndication [...] artery disease of n ative artery of [place] heart with stable angina pectoris 08/07/2022 Mixed hyperlipidemia 08/07/2022 Primary hypertension 08/07/2022 S/P coronary artery stent placement 08/07/2022 Vitamin D deficiency disease 06/09/2012 Osteoporosis 06/04/2011 Immunizations Immunization Administration Dates Next Due Influenza, Quadrivalent, Ni l Culture-based MDCK, Preservative Free, Antibiotic Free, Intramuscular 01/24/2018 Social History Tobacco Use Types Packs/Day Years Used Date Smoking Tobacco: Never Smokeless Tobacco: Never Tobacco Cessation:Counseling Given: Not Answered Comments Unknown Sex and Gender Information Value Date Recorded Sex Assigned at Not on file 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 Gender Identity Not on file Sexual Orientation [...] 09/11/2024 7:46 AM CDT Plan of Treatment Not on file Procedures Procedure Name Priority Date/Time Associated Diagnosis Comments POCT LIPID PANEL Routine 09/11/2024 9:01 AM CDT Lipid screening CARDIOLOGY DOCUMENT SCAN Routine 08/18/2024 5:43 PM CDT ECG 12-LEAD Routine 08/08/2024 11:51 AM CDT Nonrheumatic aortic valve insufficiency POCT LIPID PANEL Routine 08/08/2024 7:49 AM CDT Coronary artery disease involving [place] coronary artery of [place] heart with unstable angina pectoris (HCC) Mixed [...] Capillary blood 09/11/2024 9 :01 AM CDT Olga Zendejas NP POINT OF CARE TEST ORDERA BLES Final Result * Cardiology Document Scan (08/18/2024 5:43 PM CDT) Anatomical Region Laterality Modality Other Carlyn Buenrostro MD CV CARDIAC SERVICES PRO CEDURES Final Result * ECG 12 lead (08/08/2024 11:51 AM CDT) Result [facility] Derik Wong MD ECG ORDERABLES Final Res ult * POCT lipid panel (08/08/2024 7:49 AM CDT) Cholesterol, POC 244 mg/dL HDL, POC 30 mg/dL Triglycerides, POC 169 mg/dL LDL Cholesterol POC 180 mg/dL Chol/HDL Ratio, POC 8.2 Non-HDL Cholesterol, POC 214 mg/dL Cholesterol Total, POC 244 mg/dL Capillary blood 08/08/2024 7 :49 AM CDT Result [facility] Derik Wong MD POINT OF CARE TEST ORDERA BLES Final Result * BONE MINERAL DENSITY (11/06/2013) Anatomical Region Laterality Modality Radiographic Janeth ging Narrative 11/06/2013 Ordered by an unspecified provider. Result [facility] Historical Provider IMG DXA PROCEDURES Final Result from Last 3 Months or Most Recently Relevant to Health Maintenance Insurance FOR LIFE [facility] MEDICARE FOR LIFE [facility] MEDICARE [facility] MEDICARE [facility] FOR LIFE Care Teams President And Chief Operating Officer Relationship Specialty Start Date End Date Bossman Martinez MD PCP - General Family Medicine 01/24/18
--- OUTSIDE RECORDS SUMMARY | 2024-10-10 08:01 | XMS_ITS | Clinical Summary ---
Author Organization [facility] Address [address] [place] [address] Phone Care Team Providers Care Wall Man Name Role Phone Unavailable Primary Care Provider Unavailabl e Social History Tobacco Use Types Packs/Day Years Used Date Smoking Tobacco: Never Assessed Comments Unknown Sex and Gender Information Value Date Recorded Sex Assigned at Not on file Legal Sex Female 5:14 PM CDT Gender Identity Not on file Sexual Orientation Not on file Plan of Treatment Not on file Insurance [facility] [employer] [facility] MEDICARE C [employer] on file
== END 2024-10-10 07:58 | disposition home or self-care (01) ==
LOC: ANHGOSHLAB 07:58
PROVIDERS: PCP Family Medicine; Visit Provider Allergy & Immunology
DX: L50.1 Idiopathic urticaria (principal)
CPT/HCPCS: 36415

== ENCOUNTER 2024-11-29 12:51 | Outpatient (CLI) | payer MEDICARE, OTHER, SELFPAY ==
--- NOTE | ~2024-11-29 | MM_ITS ---
EXAMINATION: MM screening [facility] BI w oziel HISTORY: Screening mammogram TECHNIQUE: Craniocaudal and mediolateral oblique 3-D tomosynthesis images were obtained and synthetic 2-D images were generated. CAD analysis was submitted and interpreted. COMPARISON: 08/12/2023, 10/07/2021, 02/06/2020 BREAST PARENCHYMAL COMPOSITION:Not Dense. There are scattered areas of fibroglandular density. FINDINGS: No suspicious mass, calcification, or architectural distortion are identified in either breast to suggest malignancy. There has been no suspicious interval change. IMPRESSION: No mammographic evidence of malignancy. Recommend routine screening mammography in one year. BI-RADS Category 1: Negative Reviewed, dictated and finalized at location .
--- OUTSIDE RECORDS SUMMARY | 2024-11-29 13:07 | XMS_ITS | Encounter Summary ---
Author Organization 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 Gender Identity Not on file Sexual Orientation Not on file documented as of this encounter Plan of Treatment Not on file documented as of this encounter Procedures Procedure Name Priority Date/Time Associated Diagnosis Comments CARDIOLOGY DOCUMENT SCAN 08/18/2024 documented in this encounter Results * Cardiology Document Scan (08/18/2024) Anatomical Region Laterality Modality Other us Provider Scanning CV CARDIAC SERVICES PROCEDURES Final Result documented in this encounter Visit Diagnoses Not on filedocumented in this encounter Care Teams Link Trainer Relationship Specialty Start Date End Date Bossman Martinez MD PCP - General Family Medicine 01/24/18 documented as of this encounter
--- OUTSIDE RECORDS SUMMARY | 2024-11-29 13:07 | XMS_ITS | Clinical Summary ---
Author Organization [facility] Address [address] [place] [address] Care Team Providers Care Right Of Way Maintenance Supervisor Name Role Phone Bossman Martinez MD Primary Care Provider [phone] Source Comments [facility],non-owned Affiliates and Associated Physician Practices is amultiple site organization consisting of ambulatory clinics and hospital sitesin [place], [place], [place] and [place]. This disclosure is being madepursuant to the Care Everywhere program and may not contain all information available regarding this patient. Last updated 17.[facility] Allergies Active Allergy Reactions Criticality Noted Date Comments Cefuroxime Other 12/06/2018 Ended up in hospital with C DIFF Medications * Be aware that medications may not be up to date on this document. Alwaysverify current medications with the patient. rosuvastatin (CRESTOR) 10 MG tablet Take 10 mg by mouth once daily Active Bvmfb-7-[id number] Ethyl Esters (LOVAZA PO) Active Estradiol (VAGIFEM [...] 06/15/2020, 05/24/2020 DEPRESSION SCREENING 04/12/2024 INFLUENZA VACCINE (#1) 2024 , 01/16/2020, 03/11/2012 Respiratory Syncytial Virus (RSV) Vaccine [...] age to complete this topic Insurance [facility] MANAGED MEDICARE ADV Care Teams Right Of Way Maintenance Supervisor Relationship Specialty Start Date End Date Bossman Martinez MD [address] [place] [address] PCP - General Family Medicine 12/06/18
--- OUTSIDE RECORDS SUMMARY | 2024-11-29 13:07 | XMS_ITS | Clinical Summary ---
Author Organization [facility] Address [address] [place] [address] Care Team Providers Care Information Technology Associate Name Role Phone Bossman Martinez MD Primary Care Provider [phone] Allergies Active Allergy Reactions Criticality Noted Date [...] on file Legal Sex Female 5:52 PM METAL TRIMMER Gender Identity Not on file Sexual Orientation [...] this topic Medical Devices Implanted Type Area Kosher Sealer Device Identifier Shelf Expiration Date Model / Serial / Lot Clamp Clamp Description:FROM WRIST TO FO REARM Plate Plate Description:FROM WRIST TO FO REARM Procedures Procedure Name Priority Date/Time Associated Diagnosis Comments COLONOSCOPY Routine 04/30/2020 9:25 AM METAL TRIMMER from Last 3 Months or Most Recently Relevant to Health Maintenance Results * Colonoscopy (04/30/2020 9:25 AM METAL TRIMMER) Narrative Elia Hood MD - 04/30/2020 9:25 AM METAL TRIMMER Elia Hood MD 05/13/2020 10:20 AM KRISTAL [...] the left lateral decubitus position, the Olympus [id number] colonoscope was introduced into the rectum and [...] Relevant to Health Maintenance Insurance MED REPLACE [facility] MEDICARE HUMAN Care Teams Information Technology Associate Relationship Specialty Start Date End Date Bossman Martinez MD [address] [address] PCP - General FAMILY PRACTICE 04/25/20
--- OUTSIDE RECORDS SUMMARY | 2024-11-29 13:07 | XMS_ITS | Clinical Summary ---
Author Organization [facility] Address [address] [place] [address] Phone Care Team Providers Care Technical Implementation Lead Name Role Phone Unavailable Primary Care Provider Unavailabl e Social History Tobacco Use Types Packs/Day Years Used Date Smoking Tobacco: Never Assessed Comments Unknown Sex and Gender Information Value Date Recorded Sex Assigned at Not on file Legal Sex Female 5:14 PM CDT Gender Identity Not on file Sexual Orientation Not on file Plan of Treatment Not on file Insurance [facility] FOR LIFE MEDICARE C [employer] on file
--- OUTSIDE RECORDS SUMMARY | 2024-11-29 13:07 | XMS_ITS | Clinical Summary ---
Author Organization [facility] Address [address] [place] [address] Care Team Providers Care Motor Overhauler Name Role Phone Bossman Martinez MD Primary Care Provider [phone] Allergies Active Allergy Reactions Criticality Noted Date [...] daily 3 Active rosuvastatin (CRESTOR) 40 mg tabletIndicatio ns:Coronary artery disease involving [place] coronary artery of [place] heart without angina pectoris TAKE 1 TABLET(40 MG) BY MOUTH DAILY 90 tablet 1 4 Active ezetimibe (ZETIA) 10 mg tablet TAKE 1 TABLET(10 MG) BY MOUTH DAILY 90 tablet 3 4 Active nitroglycerin (NITROSTAT) 0.4 mg SL tabletIndicatio ns:acute episode of anginal pain Place 1 tablet (0.4 mg total) under the tongue every 5 (five) minutes as needed for chest pain May repeat dose q 5 min, up to 3 doses total 50 tablet 1 5 026 Active metoprolol XL (TOPROL-XL) 25 mg extended release tablet TAKE 1 TABLET(25 MG) BY MOUTH DAILY 90 tablet 2 5 Active metoprolol XL (TOPROL-XL) 25 mg extended release tablet Take 1 tablet (25 mg total) by mouth daily 90 tablet 5 025 Discontinued Active Problems Problem Noted Date Diagnosed Date Nonrheumatic aortic valve insufficiency 12/11/19 Coronary artery disease of n ative artery of [place] heart with stable angina pectoris 08/07/2022 Mixed hyperlipidemia 08/07/2022 Primary hypertension 08/07/2022 S/P coronary artery stent placement 08/07/2022 Vitamin D deficiency disease 06/09/2012 Osteoporosis 06/04/2011 Encounters Date Type Department Care Team Description 10/19/2024 Telephone [facility] Cardiology [address] [place] [phone] Amber Dang NP 10/19/2024 Results Follow-Up [facility] Cardiology [address] [place] [phone] Amber Dang NP Transthoracic Echo (TTE) Complete W Doppler/CF 10/18/2024 10:15 AM CDT Ancillary Procedure [facility] Cardiology [address] [place] [phone] Nonrheumatic aortic valve insufficiency 09/11/2024 8:00 AM CDT Office Visit [facility] Cardiology [address] [place] [phone] Amber Dang NP Coronary artery disease of [place] artery of [place] heart with stable angina pectoris (Primary Dx); Mixed hyperlipidemia; Nonrheumatic aortic valve insufficiency; Lipid screening from Last 3 Months Immunizations Immunization Administration Dates Next Due Influenza, Quadrivalent, Ni l Culture-based MDCK, Preservative Free, Antibiotic Free, Intramuscular 01/24/2018 Surgical History Surgery Date Site/Laterality Comments BACK SURGERY Back Surgery - (Added by TW Conv) HYSTERECTOMY FRACTURE SURGERY SHUNT EXTERNALIZATION CATARACT EXTRACTION Medical History Medical History Date Comments Finding of body mass index Body Mass Index - (Added by TW Conv) Personal history of healed t raumatic fracture History of fracture of foot - (Added by TW Conv) Personal history of healed t raumatic fracture History of fracture of rib - (Added by TW Conv) Osteoporosis Heart disease Hypertension Anxiety Family History Medical History Relation Name Comments Breast cancer Other 2 Breast Cancer - (Added by TW Conv) Relation Name Status Comments Other 1 Alive Other 2 Social History Tobacco Use Types Packs/Day Years Used Date Smoking Tobacco: Never Smokeless Tobacco: Never Tobacco Cessation:Counseling Given: Not Answered Comments Unknown Sex and Gender Information Value Date Recorded Sex Assigned at Not on file 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 Gender Identity Not on file Sexual Orientation [...] Well Visit 65+ 2018 Covid-19 Vaccine (4 - 2023-2 5 season) 2023 01/15/2021, 06/15/2020, 05/24/2020 Osteoporosis Screening-Bone Density Scan 02/20/2024 02/19/2022, 02/06/2022, 11/06/2013, Additional history exists Influenza Vaccine (#1) 2024 , 01/16/2020, 02/07/2019, Additional history exists Procedures Procedure Name Priority Date/Time Associated Diagnosis Comments TRANSTHORACIC ECHO (TTE) COMPLETE W DOPPLER/CF WO CONTRAST Routine 10/18/2024 11:28 AM CDT Nonrheumatic aortic valve insufficiency POCT LIPID PANEL Routine 09/11/2024 9:01 AM CDT Lipid screening BONE MINERAL DENSITY 11/06/2013 from Last 3 Months or Most Recently Relevant to Health Maintenance Results * TRANSTHORACIC ECHO (TTE) COMPLETE W DOPPLER/CF WO CONTRAST (10/18/2024 11:28 AM CDT) EF Mod BP 65 % CONS SCIMAGE Anatomical Region Laterality Modality Ultrasound 10/18/2024 10:4 0 AM CDT Narrative 10/18/2024 10:04 PM CDT [facility] Cardiology [address] [facility] [address] [id number], [address], [place] [address] P:[phone] P:[phone] Echocardiographic Report Patient Name: RAJEEV CHARLES K : 1955 Study Date: 10/18/2024 10:40:06 AM Gender: F Clinical Dietitian: Jennifer Murillo)(CT), [facility] Location: [place] Ref Provider: AMBER DANG Height(Cm): 160 BSA: 1.86 Weight(Kg): 78 Heart Rate: 59 BP: 134 / 72 Quality: Good Order Provider: AMBER DANG PROCEDURES: Echocardiographic Report: Transthoracic echocardiogram with complete 2D, M-Mode, and color Doppler examination. With Strain Analysis. INDICATIONS: I35.1 Nonrheumatic aortic (valve) insufficiency. MEASUREMENTS: 2D/MM Value Range Doppler Value Range EF Mod BP 65 % [ 54 - 74 ] SELENA Vmax 2.82 cm2 [ 2.00 - 4.00 ] LV GLS -17.80 % AV Mean PG 4 mmHg LVIDd 2D 2.92 cm [ 3.80 - 5.20 ] AV Peak Dane 1.39 m/s [ 1.00 - 1.70 ] LVIDs 2D 1.98 cm [ 2.20 - 3.50 ] AV Peak PG 8 mmHg LVPWd 2D 1.01 cm [ 0.60 - 0.90 ] AV VTI 32.04 cm IVSd 2D 1.34 cm [ 0.60 - 0.90 ] LVOT Diam 1.99 cm [ 1.70 - 2.10 ] AoR Diam 2D 3.13 cm [ 2.70 - 3.70 ] LVOT Peak Dane 1.26 m/s [ 0.70 - 1.10 ] LA Volume 43.31 ml [ 22.00 - 52.00 ] LVOT VTI 28.73 cm LA Volume Index 23 cc/m2 [ 16 - 28 ] PV Peak Dane 0.92 m/s [ 0.40 - 0.80 ] RA Volume 28.43 ml TR Peak Dane 2.31 m/s [ 1.00 - 2.80 ] TR Peak PG 21 mmHg RVSP 32.00 mmHg [ 10.00 - 36.00 ] RV S` 8.42 mmHg Tapse 1.94 cm [ 1.71 - 5.00 ] 2D/MM Value Range Doppler Value Range - FINDINGS: Interpretation Site: Exam was interpreted at home. Left Ventricle: Normal left ventricular size. Sigmoid hypertrophy of the septum. Normal global left ventricular systolic function. Normal left ventricular diastolic function. Ejection fraction is measured at 65 %. Global Longitudinal Strain is -18 %. Right Ventricle: Normal right ventricular size. Normal right ventricular systolic function. Left Atrium: Left atrial size is within upper limits of normal. Right Atrium: The right atrium is normal in size. Atrial Septum: Normal atrial septum. Mitral Valve: Normal appearance of the mitral valve. Aortic Valve: No evidence of hemodynamically significant aortic stenosis by Doppler. Aortic cusps appear mildly sclerotic. Trileaflet aortic valve. Mild aortic valve regurgitation. Tricuspid Valve: Estimated peak RVSP is 32 mmHg. Mild tricuspid regurgitation. Pulmonic Valve: Pulmonic valve not well visualized. Mild pulmonic regurgitation. Pericardium: Normal pericardium with no significant pericardial effusion. There is an anterior echo free space consistent with epicardial fat pad. Aorta: Normal aortic root. IVC: Normal size and normal respiratory collapse consistent with normal right atrial pressure (<5 mmHg). CONCLUSIONS: Normal left ventricular size. Sigmoid hypertrophy of the septum. Normal left ventricular systolic and diastolic function. Ejection fraction is measured at 65 %. Global Longitudinal Strain is -18 %. Normal right ventricular size. Normal right ventricular systolic function. Normal appearance of the mitral valve. No significant MR. Aortic cusps appear mildly sclerotic. Trileaflet aortic valve. No significant stenosis. Mild aortic valve regurgitation. Estimated peak RVSP is 32 mmHg. Mild tricuspid regurgitation. Electronically Signed By: Danial Alves MD, [facility] 10/18/2024 10:04:15 PM CDT Procedure Note Danial Alves MD - 10/18/2024 [facility] Cardiology [address] [facility] [address] [address] [address] [facility] [address] [address] P:[phone] P:[phone] Echocardiographic Report Patient Name: RAJEEV CHARLES K : 1955 Study Date: 10/18/2024 10:40:06 AM Gender: F Clinical Dietitian: Jennifer Murillo)(CT), [facility] Location: [place] Ref Provider: AMBER DANG Height(Cm): 160 BSA: 1.86 Weight(Kg): 78 Heart Rate: 59 BP: 134 / 72 Quality: Good Order Provider: AMBER DANG PROCEDURES: Echocardiographic Report: Transthoracic echocardiogram with complete 2D, M-Mode, and color Dopplerexamination. With Strain Analysis. INDICATIONS: I35.1 Nonrheumatic aortic (valve) insufficiency. MEASUREMENTS: 2D/MM Value Range Doppler ValueRange EF Mod BP 65 % [ 54 - 74 ] SELENA Vmax 2.82cm2 [ 2.00 - 4.00 ] LV GLS -17.80 % AV Mean PG 4mmHg LVIDd 2D 2.92 cm [ 3.80 - 5.20 ] AV Peak Dane 1.39m/s [ 1.00 - 1.70 ] LVIDs 2D 1.98 cm [ 2.20 - 3.50 ] AV Peak PG 8mmHg LVPWd 2D 1.01 cm [ 0.60 - 0.90 ] AV VTI 32.04cm IVSd 2D 1.34 cm [ 0.60 - 0.90 ] LVOT Diam 1.99cm [ 1.70 - 2.10 ] AoR Diam 2D 3.13 cm [ 2.70 - 3.70 ] LVOT Peak Dane 1.26m/s [ 0.70 - 1.10 ] LA Volume 43.31 ml [ 22.00 - 52.00 ] LVOT VTI 28.73cm LA Volume Index 23 cc/m2 [ 16 - 28 ] PV Peak Dane 0.92m/s [ 0.40 - 0.80 ] RA Volume 28.43 ml TR Peak Dane 2.31m/s [ 1.00 - 2.80 ] TR Peak PG 21 mmHg RVSP 32.00 mmHg [ 10.00 - 36.00 ] RV S` 8.42 mmHg Tapse 1.94 cm [ 1.71 - 5.00 ] 2D/MM Value Range Doppler ValueRange - FINDINGS: Interpretation Site: Exam was interpreted at home. Left Ventricle: Normal left ventricular size. Sigmoid hypertrophy of the septum. Normalglobal left ventricular systolic function. Normal left ventricular diastolic function.Ejection fraction is measured at 65 %. Global Longitudinal Strain is -18 %. Right Ventricle: Normal right ventricular size. Normal right ventricular systolicfunction. Left Atrium: Left atrial size is within upper limits of normal. Right Atrium: The right atrium is normal in size. Atrial Septum: Normal atrial septum. Mitral Valve: Normal appearance of the mitral valve. Aortic Valve: No evidence of hemodynamically significant aortic stenosis by Doppler.Aortic cusps appear mildly sclerotic. Trileaflet aortic valve. Mild aortic valveregurgitation. Tricuspid Valve: Estimated peak RVSP is 32 mmHg. Mild tricuspid regurgitation. Pulmonic Valve: Pulmonic valve not well visualized. Mild pulmonic regurgitation. Pericardium: Normal pericardium with no significant pericardial effusion. There is ananterior echo free space consistent with epicardial fat pad. Aorta: Normal aortic root. IVC: Normal size and normal respiratory collapse consistent with normal rightatrial pressure (<5 mmHg). CONCLUSIONS: Normal left ventricular size. Sigmoid hypertrophy of the septum. Normalleft ventricular systolic and diastolic function. Ejection fraction is measured at 65 %.Global Longitudinal Strain is -18 %. Normal right ventricular size. Normal right ventricular systolicfunction. Normal appearance of the mitral valve. No significant MR. Aortic cusps appear mildly sclerotic. Trileaflet aortic valve. Nosignificant stenosis. Mild aortic valve regurgitation. Estimated peak RVSP is 32 mmHg. Mild tricuspid regurgitation. Electronically Signed By: Danial Alves MD, [facility] 10/18/2024 10:04:15 PM CDT Amber Dang NP CV ECHO PROCEDURES Final Result * (ABNORMAL) POCT lipid panel (09/11/2024 9:01 AM CDT) Cholesterol, POC 180 <200 MG/DL HDL, POC 52 >=40 mg/dL Triglycerides, POC 151(A) <=149 mg/dL LDL Cholesterol POC 98 <=129 mg/dL Chol/HDL Ratio, POC 1.9 NONE Non-HDL Cholesterol, POC 128 NONE mg/dL Cholesterol Total, POC 180 30 - 199 mg/dL Capillary blood 09/11/2024 9 :01 AM CDT Amber Dagn NP POINT OF CARE TEST ORDERA BLES Final Result * BONE MINERAL DENSITY (11/06/2013) Anatomical Region Laterality Modality Radiographic Janeth ging Narrative 11/06/2013 Ordered by an unspecified provider. Historical Provider MD FRANCE DXA PROCEDURES Final Result from Last 3 Months or Most Recently Relevant to Health Maintenance Insurance [employer] [facility] MEDICARE FOR LIFE T MEDICARE T MEDICARE FOR LIFE Care Teams Motor Overhauler Relationship Specialty Start Date End Date Bossman Martinez MD PCP - General Family Medicine 01/24/18
--- OUTSIDE RECORDS SUMMARY | 2024-11-29 13:07 | XMS_ITS | Encounter Summary ---
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 No / Unsure 04/30/2020 7:50 AM METAL FABRICATOR documented as of this encounter Plan of Treatment Not on file documented as of this encounter Results * PRE-SURGICAL/PRE-PROCEDURE CORONAVIRUS (COVID 19) (04/27/2020 10:36 AM METAL FABRICATOR) CORONAVIRUS SARS COV 2 PCR (RESP) NOT DETECTED NOT DETECTED 04/28/2020 12:51 PM METAL FABRICATOR [employer] Comment: A Not Detected (negative) [...] providers and patients using the following websites: https://www.[employer].com/home/Covid-19/HCP/QuestIVD/fact- sheet.html https://www.[employer]/home/Covid-19/Patients/ Quest[employer]/fact-sheet.html This test has been authorized by the FDA under an Emergency Use Authorization (EUA) for use by authorized laboratories. Due to the current public health emergency, [facility] is receiving a high volume of samples [...] about COVID-19 can be found at the [employer] website: www.[employer]/Covid19. Test performed at [facility] [place] [address] [place] [address] Director: BRIANA FERNANDEZ DO,MPH FIRST TEST YES 04/27/2020 10:[address] [facility] EMPLOYED IN HEALTHCARE NO 04/27/2020 10:[address] [facility] SYMPTOMATIC DEFINED BY CDC NO 04/27/2020 10:[address] [facility] DATE OF SYMPTOM ONSET NO 04/27/2020 11:[address] [facility] HOSPITALIZATION STATUS NO 04/27/2020 10:[address] [facility] PATIENT IN ICU NO 04/27/2020 10:[address] [facility] RES[facility] NO 04/27/2020 10:[address] [facility] NO 04/27/2020 11:[address] [facility] PATIENT'S RACE WHITE OR 04/27/2020 10:[address] [facility] ETHNICITY NONHISPANIC 04/27/2020 10:[address] [facility] SOURCE (QST) NASOPHARYNGEAL SWAB 04/27/2020 10:[address] [facility] NASOPHARYNGEAL SWAB / Unknown 04/27/2020 10:36 AM METAL FABRICATOR us Josue Negron MD MICROBIOLOGY - GENE RAL ORDERABLES Final Result [facility] [address] [place] [address], [place] [phone] [employer] [facility] [address] [place] [address], documented in this encounter Visit Diagnoses Diagnosis Hematochezia- Primary Blood in stool documented in this encounter Additional Health Concerns Infection Onset Date Last Indicated Resolved Time COVID-19 Rule Out 04/27/2020 04/27/2020 04/28/2020 12:52 PM METAL FABRICATOR documented as of this encounter Care Teams Cook Fast Food Relationship Specialty Start Date End Date Bossman Martinez MD [address] [place], [place] [id number] PCP - General FAMILY PRACTICE 04/25/20 documented as of this encounter
--- OUTSIDE RECORDS SUMMARY | 2024-11-29 13:07 | XMS_ITS | Encounter Summary ---
Author Organization [facility] Healthcare Address [address] [place] [address] Care Team Providers Care Frequency Checker Name Role Phone Bossman Martinez MD Primary Care Provider Encounter Details Date Type Department Care Team (Late st Contact Info) Description 10/19/2024 Results Follow-Up [facility] Cardiology [address] [facility] [address] [place] [address] Olga Zendejas NP [address] [place] [address] Transthoracic Echo (TTE) Complete W Doppler/CF Social History Tobacco Use Types Packs/Day Years Used Date Smoking Tobacco: Never Smokeless Tobacco: Never Comments Unknown Sex and Gender Information Value Date Recorded Sex Assigned at Not on file 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
== END 2024-11-29 12:52 | disposition home or self-care (01) ==
PROVIDERS: PCP Family Medicine
DX: Z12.31 Encounter for screening mammogram for malignant neoplasm of breast (principal)
CPT/HCPCS: 77063; 77067

== ENCOUNTER 2024-12-09 12:51 | Outpatient (CLI) | payer MEDICARE, OTHER, SELFPAY ==
--- NOTE | ~2024-12-09 | XR_ITS ---
XR lumbar spine 2-3V Indication: M54.41 - Lumbago with sciatica, right side Comparison: None Findings: Grade 1 retrolisthesis of T12 on L1, no fracture is identified Severe loss of disc height at T11-12 and T12-L1. Soft tissues unremarkable Impression: No acute abnormality. Reviewed, dictated and finalized at location A. Impression: No acute abnormality.
--- OUTSIDE RECORDS SUMMARY | 2024-12-09 12:56 | XMS_ITS | Clinical Summary ---
Author Organization [facility] Address [address] [place] [address] Care Team Providers Care Coating And Embossing Unit Operator Name Role Phone Bossman Martinez MD Primary Care Provider [phone] Source Comments [facility],non-owned Affiliates and Associated Physician Practices is amultiple site organization consisting of ambulatory clinics and hospital sitesin [place], [place], [place] and [place]. This disclosure is being madepursuant to the Care Everywhere program and may not contain all information available regarding this patient. Last updated 17.[facility] Allergies Active Allergy Reactions Criticality Noted Date Comments Cefuroxime Other 12/06/2018 Ended up in hospital with C DIFF Medications * Be aware that medications may not be up to date on this document. Alwaysverify current medications with the patient. rosuvastatin (CRESTOR) 10 MG tablet Take 10 mg by mouth once daily Active [id number] Ethyl Esters (LOVAZA PO) Active Estradiol (VAGIFEM [...] age to complete this topic Insurance [facility] MANAGED MEDICARE ADV Care Teams Coating And Embossing Unit Operator Relationship Specialty Start Date End Date Bossman Martinez MD [address] [place] [address] PCP - General Family Medicine 12/06/18
--- OUTSIDE RECORDS SUMMARY | 2024-12-09 12:56 | XMS_ITS | Encounter Summary ---
Author Organization [facility] Healthcare Address [address] [place] [address] Care Team Providers Care Recyclable Products Sorter Name Role Phone Bossman Martinez MD Primary Care Provider [phone] Encounter Details Date Type Department Care Team (Late st Contact Info) Description 08/18/2024 Orders Only [facility] Health Information Management [address] [place] [id number] Scanning, Provider Social History Tobacco Use Types Packs/Day Years Used Date Smoking Tobacco: Never Smokeless Tobacco: Never Comments Unknown Sex and Gender Information Value Date Recorded Sex Assigned at Not on file 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
--- OUTSIDE RECORDS SUMMARY | 2024-12-09 12:56 | XMS_ITS | Clinical Summary ---
Author Organization [facility] Address [address] [place] [address] Phone Care Team Providers Care Shipping Weigher Name Role Phone Unavailable Primary Care Provider [...]
--- OUTSIDE RECORDS SUMMARY | 2024-12-09 12:56 | XMS_ITS | Clinical Summary ---
Author Organization [facility] Address [address] [place] [address] Care Team Providers Care [employer] Name Role Phone Bossman Martinez MD Primary Care Provider + [phone] Allergies Active Allergy Reactions Criticality Noted Date [...] 40 mg tabletIndicatio ns:Coronary artery disease involving [place] coronary artery of [place] heart without angina pectoris TAKE 1 TABLET(40 [...] artery disease of n ative artery of [place] heart with stable angina pectoris 08/07/2022 Mixed hyperlipidemia 08/07/2022 Primary hypertension 08/07/2022 S/P coronary artery stent placement 08/07/2022 Vitamin D deficiency disease 06/09/2012 Osteoporosis 06/04/2011 Encounters Date Type Department Care Team Description 10/19/2024 Telephone [facility] [address] [place] [phone] Amber Dang NP 10/19/2024 Results Follow-Up [facility] [address] [place] [phone] Amber Dang NP Transthoracic Echo (TTE) Complete W Doppler/CF 10/18/2024 10:15 AM CDT Ancillary Procedure [facility] [address] [place] [phone] Nonrheumatic aortic valve insufficiency 09/11/2024 8:00 AM CDT Office Visit [facility] [address] [place] [phone] Amber Dang NP Coronary artery disease of [place] artery of [place] heart with stable angina pectoris (Primary Dx); [...] on file 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 Electronically Signed By: Danial Alves MD, [facility] 10/18/2024 10:04:15 PM CDT Procedure Note Danial Alves MD - 10/18/2024 [facility] [address] [facility] [address], [place] [address] [address] [facility] [address], [place] [address] P:[phone] P:[phone] Echocardiographic Report Patient Name: RAJEEV CHARLES K : 1955 Study Date: 10/18/2024 10:40:06 AM Gender: F Clinical Informatics Director: Jennifer Murillo)(CT), [facility] Location: [place] Ref Provider: AMBER DANG Height(Cm): 160 BSA: [...] regurgitation. Electronically Signed By: Danial Alves MD, [facility] 10/18/2024 10:04:15 PM CDT Amber Dang NP [...] blood 09/11/2024 9 :01 AM CDT Amber Dang NP POINT OF CARE TEST ORDERA BLES Final Result * BONE MINERAL DENSITY (11/06/2013) Anatomical Region Laterality Modality Radiographic Janeth ging Narrative 11/06/2013 Ordered by an unspecified provider. Historical Provider MD FR[facility] DXA PROCEDURES Final Result from Last 3 Months or Most Recently Relevant to Health Maintenance Insurance [employer] [facility] MEDICARE FOR LIFE T MEDICARE T MEDICARE FOR LIFE Care Teams [employer] Relationship Specialty Start Date End Date Bossman Martinez MD PCP - General Family Medicine 01/24/18
== END 2024-12-09 12:52 | disposition home or self-care (01) ==
PROVIDERS: PCP Family Medicine; Visit Provider Physician Assistant Medical
DX: M54.41 Lumbago with sciatica, right side (principal); G89.29 Other chronic pain; M25.551 Pain in right hip
CPT/HCPCS: 72100

== ENCOUNTER 2025-02-18 08:10 | Emergency (ER) | payer MEDICARE, OTHER, SELFPAY ==
--- NOTE | ~2025-02-18 | XR_ITS ---
Examination: XR chest 2V Clinical History: SOB and fever Comparison: 07/30/2022 Technique: PA and Lateral Findings: Cardiomediastinal silhouette normal size and configuration. Lungs clear. No acute bony abnormality. Exaggerated thoracic kyphosis. IMPRESSION: 1. No acute cardiopulmonary findings. Reviewed, dictated and finalized at location R. 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
--- NOTE | 2025-02-18 08:14 | ED.GENADULT ---
HPI - General Adult General Chief complaint: Upper Respiratory Infection Stated complaint: Cough/Sore Throat Time Seen by Provider: 02/18/25 08:14 Source: patient Mode of arrival: ambulatory Limitations: no limitations History of Present Illness HPI narrative: 69-year-old female patient presents to the [facility] with complaints of cough and congestion for the past week. Patient states she feels little short of breath and states she feels like she has had a fever even though she has not been measuring it but has had some chills and sweats. Patient states she has been taking some [id number] medications for her symptoms. Patient states that she normally uses an inhaler this time a year but states that they recently just packed up their RV and they are heading down to [place] for the winter. Related Data Home Medications ?Medication ?Instructions ?Recorded ?Confirmed ?Last Taken ?Type raloxifene 60 mg tablet (Evista) 60 mg PO DAILY 05/16/19 02/06/25 08/17/24 History cholecalciferol (vitamin D3) 125 125 mcg PO DAILY 01/14/22 02/06/25 08/17/24 History mcg (5,000 unit) tablet (Vitamin D3) metoprolol succinate 25 mg 25 mg PO BID 09/21/24 02/06/25 Unknown History tablet,extended release 24 hr (Toprol XL) Allergies Allergy/AdvReac Type Severity Reaction Status Date / Time Sulfa (Sulfonamide Allergy Mild RASH Verified 02/18/25 08:41 Antibiotics) adhesive tape Allergy Unknown RASH Verified 02/18/25 08:41 cefuroxime Allergy Unknown Unknown Verified 02/18/25 08:41 Cephalosporins Allergy Unknown NAUSEA AND Verified 02/18/25 08:41 SEVERE DIARRHEA, C-DIF sulfamethizole Allergy Unknown Unknown Verified 02/18/25 08:41 trimethoprim Allergy Unknown Unknown Verified 02/18/25 08:41 doxycycline AdvReac Intermediate rash on Verified 02/18/25 08:41 face Review of Systems Review of Systems: CONSTITUTIONAL: positive fever, body aches and chills, positive sweats. EYES: Denies visual changes, redness, or discharge. ENT: positive rhinorrhea, congestion, sore throat, and otalgia. CARDIOVASCULAR: Denies chest pain, palpitations, or edema. RESPIRATORY: Positive cough or dyspnea. GASTROINTESTINAL: Denies abdominal pain, nausea, vomiting, or diarrhea. GENITOURINARY: Denies dysuria or hematuria. SKIN: Denies rash or itching. MUSCULOSKELETAL: Denies back pain, joint pain, or myalgia. NEUROLOGIC: positive headache, denies numbness, or weakness. PSYCHIATRIC: Denies anxiety or depression. [facility] Past Medical History Medical History Facet arthropathy, lumbosacral Herniation of intervertebral disc between L5 and S1 Weight gain Weight loss counseling, encounter for Panic attack as reaction to stress Localized hives Hives BMI greater than 30 Family history of coronary artery disease History of colitis Elevated blood pressure reading without diagnosis of hypertension Exposure to COVID-19 virus Hyperlipidemia Family History Family History Grandparent Diabetes mellitus Family history of coronary artery disease Cerebrovascular accident Pulmonary disease Mother Family history of heart disease in male family member before age 55 Family history of malignant neoplasm of ovary Diabetes mellitus Acute myocardial infarction Family history of diabetes mellitus in first degree relative Family history of malignant neoplasm of breast in first degree relative Family history of congestive heart failure High cholesterol Hypertension Pulmonary disease Father Family history of heart disease in male family member before age 55 Acute myocardial infarction Family history of lung cancer Hx of CABG High cholesterol Hypertension Pulmonary disease Sibling Family history of malignant neoplasm of breast in first degree relative, Onset Age: 30 Other Carcinoma of colon Social History Social History Second hand tobacco smoke exposure: No Alcohol intake: never Drinks per week: 1 Substance use: never Substance use type: does not use Lack of Transportation: No Lack of Food: Never True Current Housing: I Have Housing Concerned About Future Housing: No Difficulty Paying Gas/Electric Bills: No Difficulty Paying for Meds: No Currently Unemployed: No Difficulty w/ Childcare or Family Care: No Living arrangements: with family Spiritual care concerns: No Comments At the time of my signature I agree with nursing past medical history, surgical, social, and family history. There is no relevant family history pertinent to the presenting complaint. Exam Narrative: GENERAL: Well-appearing, well-nourished, and in no acute distress. HEAD: Normocephalic, atraumatic. EYES: PERRLA and EOMI. ENT: Nares with erythema edema noted bilaterally, no rhinorrhea or epistaxis. Mucous membranes moist. posterior pharynx with no erythema, tonsillar enlargement, exudates or lesions present. Bilateral TMs are clear no erythema or foreign bodies the canal. NECK: Supple. No lymphadenopathy CHEST: Very slight expiratory wheeze noted to bilateral upper lobes on auscultation. No respiratory distress. HEART: Regular rate and rhythm. No murmur heard. Normal peripheral pulses. ABDOMEN: Soft, nontender, nondistended, normal active bowel sounds. EXTREMITIES: Normal range of motion. No edema. SKIN: Warm, dry, no rash. NEURO: No focal deficits. Alert and oriented x3. Course Course Level of Care: Express Care Visit Reevaluation(s) Reevaluation #1: re-evaluated patient notified her that her x-ray is negative for any pneumonia. Discussed with patient this is most likely a virus which it will take some time for her to get over. Discussed with patient that we will discharge her home with an albuterol inhaler, mild steroid, and Tessalon Perles to help with the coughing and congestion. Discussed with patient highly recommend that she include increase her vitamins and specially vitamin-C and zinc along with the already prescribed vitamin D to help her get over the virus quicker. Also discussed with patient that she should not be taking the regular [id number] cold and flu medications since she does have high blood pressure and highly recommend Corcidin high blood pressure as an alternative. Discussed with patient if her symptoms continue and she has fevers longer than 5 days she needs go the ER for further evaluation. Patient verbalized understanding denies any other questions or concerns at this time. Date: 02/18/25 Time: 09:19 Vital Signs Vital signs: Vital Signs Oxygen Delivery Room Air 02/18/25 08:20 Temperature 36.8 C 02/18/25 08:22 Pulse Rate 84 02/18/25 08:22 Respiratory Rate 16 02/18/25 08:22 Blood Pressure 126/100 H 02/18/25 08:22 Pulse Oximetry 98 02/18/25 08:22 Oxygen Delivery Room Air 02/18/25 08:20 Vital signs reviewed. The patient has been informed that they may have pre-hypertension or Hypertension based on a BP reading in the department. I recommend that the patient call the primary care provider listed on their discharge instructions or a physician of their choice this week to arrange follow up for further evaluation of possible pre-hypertension or Hypertension Medical Decision Making MDM Narrative Medical decision making narrative: discussed with patient that her point of care testing for influenza, COVID, strep were all negative today. We will send the strep swab to the lab for culture. Discussed with patient that since she is complaining of fevers and a cough we will go ahead and do an x-ray to rule out pneumonia prior to her travels. I will reassess patient once this has resulted. Differential Diagnosis Differential Diagnosis: Differential diagnosis: Allergic rhinitis, chronic sinusitis, tonsillitis, acute sinusitis, infectious mononucleosis, seasonal influenza, pertussis, diphtheria, meningococcal disease, viral syndrome, viral bronchitis, RSV, COVID-19 Vital Signs Vital Signs: Vital Signs Oxygen Delivery Room Air 02/18/25 08:20 Temperature 36.8 C 02/18/25 08:22 Pulse Rate 84 02/18/25 08:22 Respiratory Rate 16 02/18/25 08:22 Blood Pressure 126/100 H 02/18/25 08:22 Pulse Oximetry 98 02/18/25 08:22 Oxygen Delivery Room Air 02/18/25 08:20 Lab Data Labs: Lab Results 02/18/25 02/18/25 Range/Units 08:41 08:46 POC Influenza A Ag Negative (Negative) POC Influenza B Ag Negative (Negative) POC SARS CoV-2 Ag Negative (Negative) POC Grp A Strep Screen Negative (Negative) Imaging Data Radiologist's impression: [facility] [address] [place] [address] XRay Report Signed Patient: [place] : 1955 MR#: [id number] Age: 69 Acct:[id number] Loc: [facility] ADM Date: 02/18/[address]: Ordering Physician: Tracy Riggs APRN Date of Service: 02/18/25 Procedure(s): XR chest 2V Accession Number(s): [id number] cc: Bossman Martinez MD; Tracy Riggs APRN~ Examination: XR chest 2V Clinical History: SOB and fever Comparison: 07/30/2022 Technique: PA and Lateral Findings: Cardiomediastinal silhouette normal size and configuration. Lungs clear. No acute bony abnormality. Exaggerated thoracic kyphosis. IMPRESSION: 1. No acute cardiopulmonary findings. Reviewed, dictated and finalized at location R. 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 Recommend antihistamine such as Benadryl at night time and Claritin/Zyrtec/Dolly during the day recommend taking vitamins to help decrease the length of the virus including 2000 mg of vitamin-C in the a.m. and 2000 mg of vitamin-C in the p.m., zinc 50 mg daily x1 week and continue to take your vitamin D daily as prescribed Cough syrup may cause drowsiness; avoid driving or take it at night time. Use inhaler as needed for cough, wheezing, shortness of breath or chest tightness. Also, recommend symptomatic treatment includes: rest, fluids, and increase humidity of the air at home. Recommend Acetaminophen or nonsteroidal anti-inflammatory agents (NSAIDs) as directed in the bottle to reduce fever and/pain/headache. Avoid smoking/second-hand smoke. Limit visits to areas with large crowds. Please schedule a follow-up visit with your personal physician for further evaluation and treatment within 3-5days. Including recheck and discussion of your blood pressure. If your symptoms persist, change or worsen significantly before you can contact your personal physician then please, without delay, go to the emergency department for further evaluation. Patient Language: Azeri Prescriptions: New benzonatate 200 mg capsule 200 mg PO TID PRN (Reason: cough) 10 Days Qty: 30 0RF methylprednisolone 4 mg tablets,dose pack See Rx Instructions PO .COMPLEX Qty: 21 0RF Rx Instructions: for 6 days albuterol sulfate [Ventolin HFA] 90 mcg/actuation HFA aerosol inhaler 2 puff INHALATION .Q4 hours PRN (Reason: cough) Qty: 18 0RF No Action raloxifene [Evista] 60 mg tablet 60 mg PO DAILY metoprolol succinate [Toprol XL] 25 mg tablet extended release 24 hr 25 mg PO BID fluoxetine 20 mg capsule 20 mg PO DAILY Qty: 90 1RF Rx Instructions: Take one capsule every other day for a week and then advance to 1 capsule daily. buspirone 5 mg tablet 5 mg PO BID Qty: 180 1RF Rx Instructions: Take one tablet for one week, then advance to one tablet twice daily. rosuvastatin [Crestor] 40 mg tablet 40 mg PO DAILY Qty: 90 3RF cholecalciferol (vitamin D3) [Vitamin D3] 125 mcg (5,000 unit) Tablet 125 mcg PO DAILY aspirin 81 mg Tablet,Delayed Release (Dr/Ec) 81 mg PO QAM Qty: 30 0RF ezetimibe [Zetia] 10 mg tablet 10 mg PO DAILY Qty: 90 0RF pantoprazole [Protonix] 40 mg tablet,delayed release (DR/EC) 40 mg PO BID Qty: 180 0RF phentermine 37.5 mg capsule 37.5 mg PO DAILY Qty: 30 0RF Rx Instructions: must administer 30 minutes before or 1-2 hours after breakfast, ok to take breaks on the weekend. Follow-up/Referrals: Bossman Martinez MD [Primary Care Provider, Family Practice] Time of Disposition: 09:18
[2025-02-18 08:22] VITALS: BP 126/100; PULSE 84; RESP 16; TEMP 36.8; O2SAT 98
[2025-02-18 08:43] LABS: EDSTREPNEGPOS1 Negative (Negative)
[2025-02-18 08:47] LABS: EDCOVIDSCREEN Negative (Negative); EDINFLUASCREEN Negative (Negative); EDINFLUBSCREEN Negative (Negative)
== END 2025-02-18 09:17 | disposition home or self-care (01) ==
PROVIDERS: Emergency Provider Nurse Practitioner Family; PCP Family Medicine
DX: J06.9 Acute upper respiratory infection, unspecified (principal); R05.9 Cough, unspecified; Z20.822 Contact with and (suspected) exposure to COVID-19; E78.5 Hyperlipidemia, unspecified
CPT/HCPCS: 71046; 87081; 87426; 87804; 87880; 99213; G0463